=== PATIENT | male | born 1955 | race African-American/Black ===

== ENCOUNTER 2016-11-14 06:18 | Emergency (ER) | payer OTHER ==
[~2016-11-14] VITALS: Ht 172.7 cm; Wt 104.3 kg
[~2016-11-14 06:18] MED LIST: ACID REDUCER20 MG PO; ALDACTONE25 MG PO; AMITRIPTYLINE H25 M2 PO; AMLODIPINE BESY10 MG PO; ASPIR 8181 MG PO; ASPIRIN EC81 M1 PO; ATORVASTATIN CA20 MG PO; BACTRIM DS TAB1 EACH PO; BENADRYL25 MG PO; BISAC-EVAC10 MG PO; BISACODYL SUPP10 MG RE; CARDURA4 MG PO; CARVEDILOL25 MG PO; CARVEDILOL6.25 MG PO; CHLORTHALIDONE25 MG PO; CIALIS5 MG PO; CIPROFLOXACIN500 M1 PO; CLOPIDOGREL75 MG PO; CLOTRIMAZOLE-BE15 GM TP; COZAAR 50 MG TA50 M2 PO; COZAAR100 MG PO; DOXYCYCLINE 10100 M1 PO; DOXYCYCLINE 10100 MG PO; FEOSOL325 MG PO; FISH OIL 1,0001 EAC5 PO; FLAGYL500 MG PO; FOLIC ACID1 MG PO; HUMALOG100 UNIT/1 SUBQ; HYDRALAZINE 5050 M1 PO; HYDRALAZINE 5050 MG PO; HYDROCHLOROTHIA25 M1 PO; IRON325; KETOROLAC30 MG/1 M5; LANTUS SUBQ; LANTUS100 UNIT/M SUBQ; LEVEMIR SUBQ; LEVEMIR100 UNIT/1 SUBQ; LIPITOR40 MG PO; LISINOPRIL20 MG PO; LISINOPRIL40 MG PO; LOPRESSOR50 PO; LOVASTATIN 20 M20 MG PO; MIRALAX17 GM PO; MOBIC15 MG PO; NEURONTIN 300300 M1 PO; NORCO 5-325 TA1 EACH PO; NORVASC10 MG PO; NOVOLOG100 UNIT/1; NOVOLOG100 UNIT/1 SQ; ONDANSETRON HCL4 M2 PO; PAIN & FEVER325 MG PO; PERCOCET PO; PLAVIX 75 MG TA75 M1 PO; POTASSIUM20 PO; PREDNISONE 20 M20 MG PO; SENNA S TABLET1 EACH PO; TRIAMCINOLONE A15 G1 TOP; TRIANEX17 GM TP; TYLENOL EX-STR500 M1 PO; ZANTAC 150MG T150 M1 PO; ZESTORETIC 20-1 EAC3 PO; ZOFRAN ODT4 MG PO; [UNRECOGNIZED DRUG - OTHER] PO
[2016-11-14 06:57] LABS: ABSOLUTE NEUTROPHILS 5.8 thou/uL (1.4-8.2); BASOPHILS 0.9 % (0.0-2.0); EOSINOPHILS 5.2 % (0.0-3.0); HEMATOCRIT 33.2 % (42.0-52.0); HEMOGLOBIN 10.9 gm/dL (14.0-18.0); LYMPHOCYTES 26.7 % (24.0-44.0); MCH 28.2 pg (26.0-34.0); MCHC 32.7 g/dL (28.0-37.0); MCV 86.1 fL (80.0-100.0); MONOCYTES 10.1 % (1.0-8.0); PLATELET COUNT 213 thou/uL (150-400); POLYS 57.1 % (36.0-66.0); RBC 3.86 mil/uL (4.50-6.00); RDW 14.8 % (10.5-14.5); WBC 10.2 thou/uL (4.0-11.0)
[2016-11-14 07:02] LABS: MANUAL DIFF NO
[2016-11-14] MEDS ORDERED: NORCO 5-325 TA1 EACH PO (07:32)
[2016-11-14] MEDS ORDERED: BACTRIM DS TAB1 EACH PO (07:32)
[2016-11-14 08:06] LABS: CALCIUM 8.4 mg/dL (8.5-10.1); CREATININE 2.8 mg/dL (0.7-1.3); POTASSIUM 5.1 mmol/L (3.5-5.1)
[2016-11-14 09:03] VITALS: BP 1180/92
== END 2016-11-14 09:04 | disposition home or self-care (01) ==
LOC: ER 06:18
PROVIDERS: Emergency Medicine
DX: S68.623A Partial traumatic transphalangeal amputation of left middle finger, initial encounter (principal); S68.625A Partial traumatic transphalangeal amputation of left ring finger, initial encounter; Z86.73 Personal history of transient ischemic attack (TIA), and cerebral infarction without residual deficits; E11.22 Type 2 diabetes mellitus with diabetic chronic kidney disease; I13.10 Hypertensive heart and chronic kidney disease without heart failure, with stage 1 through stage 4 chronic kidney disease, or unspecified chronic kidney disease; N18.9 Chronic kidney disease, unspecified; E78.5 Hyperlipidemia, unspecified; K21.9 Gastro-esophageal reflux disease without esophagitis; W23.0XXA Caught, crushed, jammed, or pinched between moving objects, initial encounter; Y93.89 Activity, other specified; Y92.59 Other trade areas as the place of occurrence of the external cause; Y99.0 Civilian activity done for income or pay

== ENCOUNTER 2017-09-28 10:43 | Emergency (ER) | payer OTHER ==
[~2017-09-28] VITALS: Ht 172.7 cm; Wt 104.3 kg
[2017-09-28] MEDS ORDERED: SENNA8.6 MG PO (12:24)
[2017-09-28] MEDS ORDERED: HYDROCODONE-AP1 EAC6 PO (12:24)
[2017-09-28 12:41] VITALS: BP 137/86
[2018-01-12] MEDS ORDERED: LISINOPRIL10 MG (17:27)
[2018-03-27] MEDS ORDERED: COLCHICINE0.6 M1 PO (09:04)
[2018-03-27] MEDS ORDERED: CEFUROXIME500 MG PO (09:04)
[2018-04-13] MEDS ORDERED: NORCO 5-325 TA1 EACH PO (01:43)
== END 2017-09-28 12:39 | disposition home or self-care (01) ==
LOC: ER 10:43
DX: M25.562 Pain in left knee (principal); M25.462 Effusion, left knee; I25.10 Atherosclerotic heart disease of native coronary artery without angina pectoris; E11.22 Type 2 diabetes mellitus with diabetic chronic kidney disease; I12.9 Hypertensive chronic kidney disease with stage 1 through stage 4 chronic kidney disease, or unspecified chronic kidney disease; N18.9 Chronic kidney disease, unspecified; K21.9 Gastro-esophageal reflux disease without esophagitis; E78.5 Hyperlipidemia, unspecified; Z79.4 Long term (current) use of insulin; W01.0XXA Fall on same level from slipping, tripping and stumbling without subsequent striking against object, initial encounter; Y93.89 Activity, other specified; Y92.89 Other specified places as the place of occurrence of the external cause; Y99.8 Other external cause status

== ENCOUNTER 2018-01-09 18:58 | Emergency (ER) | payer OTHER ==
[~2018-01-09] VITALS: Ht 172.7 cm; Wt 104.3 kg
[~2018-01-09 18:58] MED LIST changes: +HYDROCODONE-AP1 EAC6 PO; +SENNA8.6 MG PO
[2018-01-09 19:47] LABS: HEMATOCRIT 32.5 % (42.0-52.0); HEMOGLOBIN 10.5 gm/dL (14.0-18.0); MCH 28.2 pg (26.0-34.0); MCHC 32.3 g/dL (28.0-37.0); MCV 87.3 fL (80.0-100.0); RBC 3.72 mil/uL (4.50-6.00); RDW 15.5 % (10.5-14.5); WBC 11.2 thou/uL (4.0-11.0)
[2018-01-09 19:48] LABS: CALCIUM 8.2 mg/dL (8.5-10.1); CREATININE 3.2 mg/dL (0.7-1.3); POTASSIUM 4.8 mmol/L (3.5-5.1)
[2018-01-09 19:51] LABS: URIC ACID* 9.7 mg/dL (2.6-7.2)
[2018-01-09] MEDS ORDERED: COLCRYS0.6 MG PO (20:37)
[2018-01-09] MEDS ORDERED: NORCO 10-325 T1 EACH PO (20:37)
[2018-01-09 20:50] VITALS: BP 157/87
[2018-01-12] MEDS ORDERED: LISINOPRIL10 MG (17:27)
== END 2018-01-09 20:51 | disposition home or self-care (01) ==
LOC: ER 18:58
PROVIDERS: Physician Assistant
DX: M10.9 Gout, unspecified (principal); M25.532 Pain in left wrist; I12.9 Hypertensive chronic kidney disease with stage 1 through stage 4 chronic kidney disease, or unspecified chronic kidney disease; E11.22 Type 2 diabetes mellitus with diabetic chronic kidney disease; N18.9 Chronic kidney disease, unspecified; E78.5 Hyperlipidemia, unspecified; K21.9 Gastro-esophageal reflux disease without esophagitis; I25.10 Atherosclerotic heart disease of native coronary artery without angina pectoris; Z86.73 Personal history of transient ischemic attack (TIA), and cerebral infarction without residual deficits

== ENCOUNTER 2018-01-16 03:38 | Emergency (ER) | payer OTHER ==
[~2018-01-16] VITALS: Ht 172.7 cm; Wt 104.3 kg
[~2018-01-16 03:38] MED LIST changes: +COLCRYS0.6 MG PO; +LISINOPRIL10 MG; +NORCO 10-325 T1 EACH PO
[2018-01-16 03:47] VITALS: BP 169/84
[2018-01-16] MEDS ORDERED: NORCO 5-325 TA1 EACH PO (05:15)
== END 2018-01-16 05:24 | disposition home or self-care (01) ==
LOC: ER 03:38
DX: Z46.4 Encounter for fitting and adjustment of orthodontic device (principal); M19.90 Unspecified osteoarthritis, unspecified site; M25.532 Pain in left wrist; I12.9 Hypertensive chronic kidney disease with stage 1 through stage 4 chronic kidney disease, or unspecified chronic kidney disease; E11.22 Type 2 diabetes mellitus with diabetic chronic kidney disease; N18.4 Chronic kidney disease, stage 4 (severe); M10.9 Gout, unspecified; I25.10 Atherosclerotic heart disease of native coronary artery without angina pectoris; E78.5 Hyperlipidemia, unspecified; K21.9 Gastro-esophageal reflux disease without esophagitis

== ENCOUNTER → 2018-07-31 | Outpatient (CLI) | payer OTHER ==
[~2018-07-31] MED LIST changes: +CEFUROXIME500 MG PO; +COLCHICINE0.6 M1 PO
--- NOTE | ~2018-07-31 | 2DMMODE ---
[facility] [place] [address] 2 D/M-MODE ECHOCARDIOGRAM Name: SINDY HERRERA Room #: REG [facility]#: [id number] Admission: 07/31/18 Attend Phys: Rayshawn Giraldo MD Discharge: Date of : 59 Date of Service: 07/31/18 0940 Report #: [id number] THIS REPORT FOR: //name// APPROVED REPORT Study performed: 07/31/2018 08:55:12 EXAM: Comprehensive 2D, Doppler, and color-flow Echocardiogram Patient Location: Out-Patient Room #: Echo lab 2 Status: routine BSA: 2.17 HR: 72 bpm BP: 148/82 mmHg Rhythm: NSR Other Information Study Quality: Good Indications Diabetes Hypertension/HDD 2D Dimensions RVDd: 30.31 mm IVSd: 18.48 (7-11mm) LVOT Diam: 19.85 (18-24mm) LVDd: 31.15 mm PWd: 19.75 (7-11mm) Ascending Ao: 29.31 (22-36mm) LVDs: 13.03 (25-40mm) Aortic Root: 30.38 mm IVC: 16.00 mm Volumes Left Atrial Volume (Systole) Single Plane 4CH: 81.08 mL Single Plane 2CH: 64.29 mL LA ESV Index: 37.00 mL/m2 Aortic Valve AoV Peak Jan.: 1.65 m/s AO Peak Gr.: 10.83 mmHg LVOT Max P.98 mmHg LVOT Max V: 1.73 m/s GRACIELA Vmax: 3.25 cm2 Mitral Valve E/A Ratio: 0.6 MV Decel. Time: 360.40 ms [facility] [place] [address] 2 D/M-MODE ECHOCARDIOGRAM Name: SINDY HERRERA Room #: [facility]#: [id number] Admission: 07/31/18 Attend Phys: Rayshawn Giraldo MD Discharge: Date of : 59 Date of Service: 07/31/18 0940 Report #: [id number] Max Jan.: 0.67 m/s MV A Jan.: 1.14 m/s MV PHT: 104.52 ms IVRT: 119.95 ms Pulmonary Valve PV Peak Jan.: 1.17 m/s PV Peak Gr.: 5.47 mmHg Pulmonary Vein P Vein S: 0.51 m/s P Vein A: 0.27 m/s P Vein D: 0.25 m/s P Vein A Dur.: 120.0 msec P Vein S/D Ratio: 2.04 Tricuspid Valve TR Peak Jan.: 2.02 m/s TR Peak Gr.: 16.36 mmHg PA Pressure: 21.00 mmHg Left Ventricle The left ventricle is normal size. There is normal LV segmental wall motion. Moderate to severe concentric left ventricular hypertrophy. Left ventricular systolic function is hyperdynamic. LVEF is >70%. Grade I - abnormal relaxation pattern. Right Ventricle The right ventricle is normal size. The right ventricular systolic function is normal. Atria Left atrium is dilated. The right atrium size is normal. Aortic Valve The aortic valve is normal in structure. Aortic valve is calcified. No aortic regurgitation is present. There is no aortic valvular stenosis. Mitral Valve The mitral valve is normal in structure. Trace mitral regurgitation. No evidence of mitral valve stenosis. Tricuspid Valve The tricuspid valve is normal in structure. There is trace tricuspid regurgitation. Estimated PAP 21 mmHg. There is no pulmonary hypertension. Pulmonic Valve [facility] [address] [place] [address] 2 D/M-MODE ECHOCARDIOGRAM Name: SINDY HERRERA Room #: REG [facility]#: [id number] Admission: 07/31/18 Attend Phys: Rayshawn Giraldo MD Discharge: Date of : 59 Date of Service: 07/31/18 0940 Report #: [id number] The pulmonary valve is normal in structure. There is no pulmonic valvular regurgitation. Great Vessels The aortic root is normal in size. IVC is normal in size and collapses >50% with inspiration. Pericardium There is no pericardial effusion. <Conclusion> The left ventricle is normal size. Moderate to severe concentric left ventricular hypertrophy. Left ventricular systolic function is hyperdynamic. Grade I - abnormal relaxation pattern. The right ventricle is normal size. Left atrium is dilated. Aortic valve is calcified. Trace mitral regurgitation. There is trace tricuspid regurgitation. Estimated PAP 21 mmHg. <ELECTRONICALLY SIGNED> By: Rayshawn Giraldo MD 07/31/18939 9 9 Rayshawn Giraldo MD /INF
== END ==
LOC: CV 07-07 11:17
DX: I51.7 Cardiomegaly (principal); I25.10 Atherosclerotic heart disease of native coronary artery without angina pectoris

== ENCOUNTER → 2018-08-14 | Outpatient (CLI) | payer OTHER | LOC: NUC 08:42 | DX: I25.110 Atherosclerotic heart disease of native coronary artery with unstable angina pectoris (principal); E78.5 Hyperlipidemia, unspecified; I48.91 Unspecified atrial fibrillation; E11.22 Type 2 diabetes mellitus with diabetic chronic kidney disease; I13.10 Hypertensive heart and chronic kidney disease without heart failure, with stage 1 through stage 4 chronic kidney disease, or unspecified chronic kidney disease; N18.4 Chronic kidney disease, stage 4 (severe) ==

== ENCOUNTER 2018-10-28 12:12 | Emergency (ER) | payer OTHER ==
[~2018-10-28] VITALS: Ht 172.7 cm; Wt 104.3 kg
[2018-10-28 12:18] VITALS: BP 206/97
[2018-10-28] MEDS ORDERED: HYDROCODONE-AP1 EAC6 PO (12:44)
== END 2018-10-28 13:20 | disposition home or self-care (01) ==
LOC: ER 12:12
DX: S60.222A Contusion of left hand, initial encounter (principal); G89.29 Other chronic pain; M10.9 Gout, unspecified; I25.10 Atherosclerotic heart disease of native coronary artery without angina pectoris; K21.9 Gastro-esophageal reflux disease without esophagitis; E78.5 Hyperlipidemia, unspecified; I12.9 Hypertensive chronic kidney disease with stage 1 through stage 4 chronic kidney disease, or unspecified chronic kidney disease; E11.22 Type 2 diabetes mellitus with diabetic chronic kidney disease; N18.4 Chronic kidney disease, stage 4 (severe); Z79.4 Long term (current) use of insulin; Z86.73 Personal history of transient ischemic attack (TIA), and cerebral infarction without residual deficits; W07.XXXA Fall from chair, initial encounter; Y93.89 Activity, other specified; Y92.89 Other specified places as the place of occurrence of the external cause; Y99.8 Other external cause status

== ENCOUNTER 2019-01-08 19:20 | Inpatient (IN) | payer OTHER ==
[~2019-01-08] VITALS: Ht 172.7 cm; Wt 94.9 kg
[2019-01-08 19:21] VITALS: BP 151/71
[2019-01-08 20:30] LABS: HEMATOCRIT 33.3 % (42.0-52.0); MCH 28.3 pg (26.0-34.0); MCHC 32.9 g/dL (28.0-37.0); MCV 86.1 fL (80.0-100.0); RBC 3.87 mil/uL (4.50-6.00); RDW 17.4 % (10.5-14.5); WBC 7.6 thou/uL (4.0-11.0)
[2019-01-08 20:36] LABS: ANION GAP 13 mmol/L (7-16); BUN 70 mg/dL (7-18); CALCIUM 8.9 mg/dL (8.5-10.1); CHLORIDE 110 mmol/L (98-107); CO2 17 mmol/L (21-32); GLUCOSE 144 mg/dL (74-106); POTASSIUM 4.9 mmol/L (3.5-5.1); SODIUM 140 mmol/L (136-145)
[2019-01-08 20:44] LABS: APTT 28.2 Seconds (24.5-32.8); PROTIME 10.4 Seconds (9.3-11.4); TROPONIN-I <0.06 ng/mL (<0.06)
[2019-01-09] VITALS (8 sets, daily range): BP systolic 130–152; BP diastolic 61–91
[2019-01-09 02:42] LABS: CHOLESTEROL 115 mg/dL (<200); HDL CHOLESTEROL 27 mg/dL (>40); LDL CHOLESTEROL 66 mg/dL (<100); TC:HDL 4.3 Ratio (Not establshd); TRIGLYCERIDE 113 mg/dL (<150); VLDL 23 mg/dL (<40)
[2019-01-09 02:57] LABS: SERUM ASSESSMENT Clear
--- NOTE | 2019-01-09 07:29 | NUR ---
Arrived from ER after 0400. NIH still at 2 and no change in neuro status. Left side facial and hand discomfort/pain he described as sharp and constant that has been going on for a week. Bed alarm on for safety , pt. is impulsive. SCD's for DVT prophylaxis. Neuro consult called by pain medicine physician. Will continue to monitor.
--- NOTE | 2019-01-09 09:32 | EKG ---
[place] [address] 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1955 Requested By: Miles Hardy Order Number: [id number] MD: Panchito Sandhu Measurements Intervals [place] Rate: 64 P: 49 IN: 202 QRS: 25 QRSD: 99 T: 60 QT: 452 QTc: 467 Interpretive Statements Sinus rhythm Probable anteroseptal infarct, age indeterminate Compared to ECG 03/24/2018 20:32:23 No significant changes Electronically Signed On 01-09-2019 9:32:31 CDT by Panchito Sandhu [email or web address] ��������������������������������������������� <ELECTRONICALLY SIGNED> ���������������������������������������� By: Panchito Sandhu MD, [facility] ��������������������������������������������� 01/09/19 0932 50 50 Panchito Sandhu MD, [facility] /EPI
--- NOTE | 2019-01-09 10:33 | NUR ---
ASSESSMENT: CM REVIEWED CHART AND MET WITH PATIENT AT THE BEDSIDE. PT WAS ADMITTED DUE TO LEFT FACIAL NUMBNESS. PT REPORTS THAT HE LIVES AT HOME WITH HIS AND DAUGHTER IN A HOUSE. PT REPORTS ABOUT 7 STEPS WITH HANDRAILS TO GET INTO THE HOME AND NO STEPS HE HAS TO USE ONCE INSIDE. PT REPORTS HE AMBULATES WITH A CANE. PT REPORTS HE HAS A GRAB BAR AT HOME IN THE SHOWER. CM DISCUSSED ROLE. PT STATES HE HAS NOT HAD HH IN THE PAST NOR BEEN TO A SNF/ACUTE REHAB. PT REPORTS HE HAS NO ISSUES WITH HIS GAIT AT THIS TIME. PT DOES NOT ANTICIPATE HAVING ANY NEEDS AT DISCHARGE.
--- NOTE | 2019-01-09 19:44 | NUR ---
ASSUMED PATIENT CARE AT 0700. A/O X4. LEFT HAND AND LEFT FACE NUMBNESS. WORKING WITH STEADY GAIT, PROGRESSING TOWARDS POC GOALS.
[2019-01-10 03:30] VITALS: BP 145/71
--- NOTE | 2019-01-10 05:23 | NUR ---
Pain med given for left facial/hand pain with some relief. Pt. stated he slept well during the night. Up with min assist using walker and gait belt. Bed alarm on for safety. No neuro change from previous assessment. Making progress towards care plan goals.
[2019-01-10 06:25] LABS: ALBUMIN 3.2 g/dL (3.4-5.0); CREATININE 3.9 mg/dL (0.7-1.3); PHOSPHORUS 3.9 mg/dL (2.5-4.9); POTASSIUM 4.4 mmol/L (3.5-5.1)
[2019-01-10 07:06] VITALS: BP 130/65
[2019-01-10] MEDS ORDERED: ASPIR 8181 MG PO (09:28)
[2019-01-10] MEDS ORDERED: LASIX 40 MG TAB40 M2 PO (09:29)
[2019-01-10 09:50] VITALS: BP 130/65
[2019-01-10 10:42] VITALS: BP 130/65
--- NOTE | 2019-01-10 11:01 | NUR ---
PT CONTINUES TO REPORT PAIN TO LT HAND AND LT SIDE OF FACE 11/19..NO RELIEF OBTAINED WITH MEDS..
[2019-01-10 11:03] VITALS: BP 130/65
--- NOTE | 2019-01-10 16:31 | HC ---
[facility] [place] [address] CONSULTATION Name: SINDY HERRERA Room #: 349-I [facility]..#: [id number] Admission: 01/08/19 ������������������ Attend Phys: Kinza Rucker Discharge: 01/10/19 ������������������ Date of : 59 Report #: [id number] THIS REPORT FOR: //name// CC: Stan Rucker DATE OF SERVICE: 01/09/2019 NEUROLOGY CONSULTATION HISTORY OF PRESENT ILLNESS: The patient is a 63-year-old male who presents with an episode of what he describes as left facial numbness and weakness. The patient has a prior history of stroke in 2013. The patient is on aspirin 81 mg daily. He does have a history of diabetes and states that his blood sugar is typically well controlled. On admission, the patient had a blood sugar of 226. The patient also had some type of injury to the left hand, a garage door came down on the hand and ever since then, it has never functioned properly. He denies any symptoms in his legs. PAST MEDICAL HISTORY: Arthritis, congestive heart failure, diabetes, gout, stroke and hyperlipidemia. PAST SURGICAL HISTORY: Unremarkable. MEDICATIONS AT HOME: Hydrocodone p.r.n., Coreg 6.25 mg b.i.d., amlodipine 10 mg daily, colchicine 0.6 mg b.i.d., atorvastatin 80 mg at bedtime, gabapentin 600 mg t.i.d., NovoLog insulin, Levemir insulin. ALLERGIES: None. PHYSICAL EXAMINATION: VITAL SIGNS: Temperature 37.5, pulse rate 87, respiratory rate 20, blood pressure 147/64, bedside pulse oximetry 98% on room air. NEUROLOGIC: Cranial nerves 2-12 are grossly intact. The patient when he tried to smile, lifted only the left side of his face and not the right, although he told me that he felt as though the left side of his face was weak. Motor exam demonstrates symmetrical strength in all 4 extremities with the exception of the left hand. The patient had difficulty with fine finger movements, which he states is from an old injury. Reflexes are absent. Plantar responses are flexor bilaterally. Coordination demonstrates no evidence of dysmetria. Gait was not tested. LABORATORY DATA: Hematology: White blood cell count 7.6, hemoglobin 11, hematocrit 33.3, MCV 86.1 and platelet count 255,000. INR 1. Chemistry: Sodium 140, potassium 3.9, chloride 110, carbon dioxide 24, BUN 70, creatinine 4, GFR 19, glucose 144. [address] [address] CONSULTATION Name: SINDY HERRERA Room #: 349-I [facility]#: [id number] Admission: 01/08/19 ������������������ Attend Phys: Kinza Rucker Discharge: 01/10/19 ������������������ Date of : 59 Report #: [id number] IMAGING STUDIES: MRI of the head shows no acute intracranial abnormality, a left frontal lobe stroke is seen along with an old stroke in the left cerebellum. There is no change in the MRI since 2017. IMPRESSION: There is no evidence of stroke on MRI. Secondly, on examination, the symptoms are inconsistent. He states that he has left facial weakness, but actually when he smiles, the left side of the face moves and the right did not. At this point, the patient should be careful with his blood sugar. He is also developing kidney disease and I do not know if he is aware of this or not, but he should follow up with his primary care physician about this. Perhaps, he will need to see a jacquard plate maker as an outpatient. I encouraged him to continue aspirin 81 mg daily. I have no further recommendations. I thank you for your referral of the patient. ��������������������������������������������� <ELECTRONICALLY SIGNED> ���������������������������������������� By: Melissa Holcomb DO ��������������������������������������������� 01/10/19 1631 1205 1052 Melissa Holcomb DO /nt
== END 2019-01-10 11:00 | disposition home or self-care (01) | DRG 74 ==
LOC: ER 19:20 → EROBS 22:07 → 3W 22:07
PROVIDERS: Emergency Medicine; Nurse Practitioner Acute Care; ADMIT Hospitalist
DX: G58.8 Other specified mononeuropathies (principal); I13.0 Hypertensive heart and chronic kidney disease with heart failure and stage 1 through stage 4 chronic kidney disease, or unspecified chronic kidney disease; N18.4 Chronic kidney disease, stage 4 (severe); I69.354 Hemiplegia and hemiparesis following cerebral infarction affecting left non-dominant side; R20.0 Anesthesia of skin; I25.10 Atherosclerotic heart disease of native coronary artery without angina pectoris; E78.5 Hyperlipidemia, unspecified; M19.90 Unspecified osteoarthritis, unspecified site; I50.9 Heart failure, unspecified; K21.9 Gastro-esophageal reflux disease without esophagitis; M10.9 Gout, unspecified; E11.22 Type 2 diabetes mellitus with diabetic chronic kidney disease; Z79.84 Long term (current) use of oral hypoglycemic drugs; Z79.82 Long term (current) use of aspirin
CPT/HCPCS: 10879

== ENCOUNTER 2019-05-28 12:21 | Emergency (ER) | payer OTHER ==
[~2019-05-28] VITALS: Ht 180.3 cm; Wt 93.0 kg
[~2019-05-28 12:21] MED LIST changes: +LASIX 40 MG TAB40 M2 PO
[2019-05-28 13:54] LABS: ANION GAP 12 mmol/L (7-16); BUN 66 mg/dL (7-18); CALCIUM 8.9 mg/dL (8.5-10.1); CHLORIDE 110 mmol/L (98-107); CO2 20 mmol/L (21-32); CREATININE 3.8 mg/dL (0.7-1.3); GLUCOSE 103 mg/dL (74-106); POTASSIUM 4.5 mmol/L (3.5-5.1); SODIUM 142 mmol/L (136-145)
[2019-05-28 14:00] LABS: ALBUMIN 3.5 g/dL (3.4-5.0); DIRECT BILIRUBIN < 0.1 mg/dL (<0.1-0.3); SGOT 16 U/L (15-37); SGPT 20 U/L (30-65); TOTAL BILIRUBIN 0.3 mg/dL (<0.1-1.0); TOTAL PROTEIN 7.3 g/dL (6.4-8.2)
[2019-05-28 14:02] LABS: URINE BILIRUBIN NEGATIVE (Negative); URINE BLOOD NEGATIVE (Negative); URINE CLARITY CLEAR; URINE COLOR YELLOW; URINE GLUCOSE-RANDOM* NEGATIVE (Negative); URINE KETONES NEGATIVE (Negative); URINE LEUKOCYTES-REFLEX NEGATIVE (Negative); URINE NITRITE-REFLEX NEGATIVE (Negative); URINE PROTEIN (DIPSTICK) 1+ (Negative); URINE UROBILINOGEN 0.2 E.U./dl (0.2-1.0)
[2019-05-28 14:11] LABS: BACTERIA-REFLEX 1-9 Few /HPF (None Seen); CASTS None Seen /LPF (None Seen); CRYSTALS None Seen /LPF (None Seen); SQUAMOUS 0-3 Few /LPF (0-3); URINE RBC None Seen /HPF (0-2); URINE WBC-REFLEX None Seen /HPF (0-5)
[2019-05-28 16:56] VITALS: BP 166/75
== END 2019-05-28 16:57 | disposition home or self-care (01) ==
LOC: ER 12:21
PROVIDERS: Emergency Medicine
DX: E11.649 Type 2 diabetes mellitus with hypoglycemia without coma (principal); I13.0 Hypertensive heart and chronic kidney disease with heart failure and stage 1 through stage 4 chronic kidney disease, or unspecified chronic kidney disease; I50.9 Heart failure, unspecified; N18.4 Chronic kidney disease, stage 4 (severe); E11.22 Type 2 diabetes mellitus with diabetic chronic kidney disease; K21.9 Gastro-esophageal reflux disease without esophagitis; M19.90 Unspecified osteoarthritis, unspecified site; E78.5 Hyperlipidemia, unspecified; I25.10 Atherosclerotic heart disease of native coronary artery without angina pectoris; Z86.73 Personal history of transient ischemic attack (TIA), and cerebral infarction without residual deficits

== ENCOUNTER 2019-06-21 20:07 | Inpatient (IN) | payer OTHER ==
[~2019-06-21] VITALS: Ht 160 cm; Wt 104.9 kg
[2019-06-21 20:43] LABS: ABSOLUTE NEUTROPHILS 7.2 thou/uL (1.4-8.2); BASOPHILS 0.7 % (0.0-2.0); EOSINOPHILS 6.4 % (0.0-3.0); HEMATOCRIT 35.3 % (42.0-52.0); HEMOGLOBIN 11.4 gm/dL (14.0-18.0); LYMPHOCYTES 14.7 % (24.0-44.0); MCH 29.2 pg (26.0-34.0); MCHC 32.1 g/dL (28.0-37.0); MONOCYTES 8.3 % (1.0-8.0); PLATELET COUNT 222 thou/uL (150-400); POLYS 69.9 % (36.0-66.0); RBC 3.88 mil/uL (4.50-6.00); RDW 14.8 % (10.5-14.5); WBC 10.3 thou/uL (4.0-11.0)
[2019-06-21 21:01] LABS: ANION GAP 12 mmol/L (7-16); BUN 60 mg/dL (7-18); CALCIUM 9.1 mg/dL (8.5-10.1); CHLORIDE 109 mmol/L (98-107); CO2 21 mmol/L (21-32); CREATININE 3.4 mg/dL (0.7-1.3); GLUCOSE 63 mg/dL (74-106); POTASSIUM 5.2 mmol/L (3.5-5.1); SODIUM 142 mmol/L (136-145)
[2019-06-21 21:06] LABS: APTT 26.6 Seconds (24.5-32.8); PROTIME 10.5 Seconds (9.3-11.4)
[2019-06-21 21:12] LABS: ALBUMIN 3.6 g/dL (3.4-5.0); SGOT 16 U/L (15-37); SGPT 18 U/L (30-65); TOTAL BILIRUBIN 0.4 mg/dL (<0.1-1.0); TOTAL PROTEIN 7.8 g/dL (6.4-8.2); TROPONIN-I <0.06 ng/mL (<0.06)
[2019-06-21 23:41] VITALS: BP 176/81
[2019-06-22 00:05] VITALS: BP 185/94
--- NOTE | 2019-06-22 02:46 | NUR ---
Patient arrived to 3W and was oriented to the unit. Admisison process completed. Nursing is working on patient's goals reviewed plan of care/ floor policies with patient. Patient is currently sleeping. Bedrails padded for seizure precautions. No current seiuzure activity detected. Nursing will continue to monitor.
[2019-06-22 04:10] VITALS: BP 162/94
[2019-06-22 05:13] LABS: CALCIUM 8.5 mg/dL (8.5-10.1); CREATININE 3.4 mg/dL (0.7-1.3); POTASSIUM 5.2 mmol/L (3.5-5.1)
[2019-06-22 07:47] VITALS: BP 187/81
[2019-06-22 12:26] VITALS: BP 147/67
[2019-06-22 16:35] VITALS: BP 130/57
--- NOTE | 2019-06-22 17:00 | NUR ---
PT is A&OX3, pt's vs and bs are stable today, pt can gte up to bathroom with some help, pt has done EEG and BLAYNE head, pt denies pain and sob at this time.
[2019-06-22 19:31] VITALS: BP 135/58
[2019-06-23] VITALS (7 sets, daily range): BP systolic 114–154; BP diastolic 58–69
[2019-06-23 00:05] LABS: GLYCOHEMOGLOBIN (HGB A1C) 6.9 % (4.8-5.6)
[2019-06-23 05:30] LABS: CALCIUM 8.7 mg/dL (8.5-10.1); CREATININE 3.1 mg/dL (0.7-1.3)
--- NOTE | 2019-06-23 06:25 | NUR ---
PATIENT IS ALERT AND ORENTED. PAITENT IS UP TIMES ONE. PATIENT HAS LEFT SIDED WEAKNESS FORM OLD CVA. PATIENT IS FIRST DEGREE AVB ON TELE. PATIENT IS ROOMAIR. PATIENT BLOOD GLUCOSE HAVE BEEN STABLEY. NO SEIZURE ACTIVITY. PATIENT SHOWERED. PATIENT IS RESITNG COMFORTABLY IN BED.[facility].
--- NOTE | 2019-06-23 08:10 | HC ---
[facility] [place] [address] CONSULTATION Name: SINDY HERRERA Room #: 352-P [facility] IN ..#: [id number] Admission: 06/21/19 Attend Phys: David Whitman MD Discharge: Date of : 59 Report #: [id number] THIS REPORT FOR: //name// CC: David Ingram DATE OF SERVICE: 06/22/2019 ENDOCRINE CONSULTATION NOTE CONSULTING PHYSICIAN: Dr. Leary. REASON FOR CONSULTATION: Uncontrolled type 2 diabetes mellitus. HISTORY OF PRESENT ILLNESS: This is a 64-year-old male patient whose medical background is significant for multiple medical issues including a long history of type 2 diabetes mellitus, CAD, advanced chronic kidney disease, hypertension and hyperlipidemia. The patient presented yesterday to the ER with a witnessed seizure episode that occurred in the context of severe hypoglycemia. It is reported that the patient was found by EMS unresponsive and was found to have a blood glucose of 20, which was immediately addressed with D10. On arrival to the ER, the patient's blood glucose values just over a 50 mg/dL. On further questioning, the patient indicates that he has had type 2 diabetes mellitus for over 15 years and that he is maintained on a basal bolus regimen of insulin including Levemir insulin taken as 40 units q.p.m. in addition to NovoLog insulin taken at 20 units t.i.d. a.c. The patient notes that for the most part, he manages to control his blood glucose values rather well and maintains these in the low to mid 100 mg/dL range. He notes that hypoglycemia occurs occasionally, but rarely to where it is severe in the way that he presented with. He does not recall that any previous hypoglycemic episodes have caused him to present to the Emergency Department or be hospitalized and describes these as rather infrequent. He does not believe that diabetes mellitus has been associated with significant eye disease, but he does report issues with advanced chronic kidney disease for which he follows with Dr. Taylor. The patient has had a CVA in the past that left him with left-sided weakness and numbness. He reports intermittent issues with neuropathy, but attributes that to the CVA, more so than diabetes mellitus. He is not aware of history of heart disease. The patient has hyperlipidemia for which he takes atorvastatin 80 mg daily. He also has hypertension for which he is maintained on carvedilol and amlodipine. REVIEW OF SYSTEMS: CONSTITUTIONAL: Fatigue, tiredness, but no fever, chills or significant changes [facility] [address] [place] [address] CONSULTATION Name: SNIDY HERRERA Room #: 352-P [facility] IN [facility].#: [id number] Admission: 06/21/19 Attend Phys: David Whitman MD Discharge: Date of : 59 Report #: [id number] in body weight. HEENT: Negative for sore throat, sinus pain, ear drainage. PULMONARY: Occasional shortness of breath, occasional cough, but not hemoptysis. CARDIAC: Occasional palpitations, no chest pain, leg swelling is noted occasionally. GASTROINTESTINAL: Abdominal distention, nausea, but no vomiting, no major changes in bowel movement frequency recently. NEUROLOGY: Left-sided weakness and numbness. No loss of consciousness reported, seizure activity as noted above upon presentation. MUSCULOSKELETAL: Sporadic issues with arthralgia and myalgia. SKIN: No ulceration, rash, or major abnormalities. PSYCHIATRIC: Negative for delusions, hallucinations or other major issues. Otherwise, review of systems noncontributory unless mentioned in HPI. PAST MEDICAL HISTORY: 1. Type 2 diabetes mellitus. 2. Stage 4 chronic kidney disease. 3. Cerebrovascular accident, status post left-sided weakness. 4. Gout. 5. Hypertension. 6. Hyperlipidemia. 7. CAD. 8. GERD. 9. Osteoarthritis. 10. CHF. 11. Chronic pain. 12. Peripheral diabetic neuropathy. OUTPATIENT MEDICATIONS: Include Levemir insulin 40 units q.p.m., NovoLog insulin 20 units t.i.d. a.c., atorvastatin 80 mg at bedtime, gabapentin 300 mg t.i.d., carvedilol 6.25 mg b.i.d., amlodipine 10 mg daily, aspirin 81 mg daily, colchicine 0.6 mg b.i.d. ALLERGIES: No known drug allergies. FAMILY HISTORY: Noncontributory. SOCIAL HISTORY: The patient is , has 2 children. Denies use of tobacco, alcohol or illicit drugs. PHYSICAL EXAMINATION: GENERAL: This is a pleasant -[place] male patient who seems comfortable at the time of my interview and not in pain or distress. VITAL SIGNS: Blood pressure is 187/81 mmHg, respirations 20 per minute, temperature of 36.4 Celsius, heart rate 67 beats per minute. [address] [address] CONSULTATION Name: SINDY HERRERA Room #: 352-P [facility] IN M.R.#: [id number] Admission: 06/21/19 Attend Phys: David Whitman MD Discharge: Date of : 59 Report #: [id number] CONSTITUTIONAL: The patient is lying in bed, appears comfortable, not in apparent distress. HEENT: Anicteric sclerae. Intact extraocular motions. NECK: Supple, without JVD, carotid bruits or lymphadenopathy. I do not appreciate thyromegaly. CHEST: Noted for moderate air entry bilaterally with scattered rales, rhonchi, but no crackles or wheezes. HEART: Regular rate and rhythm without murmurs or gallops. ABDOMEN: Soft and lax without tenderness or organomegaly. No guarding. Active bowel sounds. EXTREMITIES: Lower extremity exam is noted for trace ankle edema bilaterally. No skin breaks, ulcerations or other deformities. PSYCH: Normal mood and affect. NEUROLOGIC: Left-sided motor and sensory deficits are noted. Power is 3/5 in the left hand. LABORATORY DATA: Blood glucose on arrival was 58 mg/dL and has since it is in between 126 and 211 mg/dL. Otherwise, sodium 138, potassium 5.2, chloride 107, CO2 of 21, anion gap 10, BUN 57, creatinine 3.4, amylase 35, AST 16, lipase 79. Total bilirubin 0.4, calcium 8.5, phosphorus 3.9, magnesium 1.6, uric acid 11, alkaline phosphatase 133, ALT 18, total protein 7.8, albumin 3.6, GFR 22. Total CPK 229. Hemoglobin A1c done in 2017 was 8.1. ASSESSMENT AND PLAN: 1. Type 2 diabetes mellitus. The patient reports an adequate level of control at home and speaks the blood glucose values were mostly within normal limits. However, his presentation was noted for a rather dramatic, severe hypoglycemia resulting in seizure-like activity. The patient and I discussed this at length and he seemed to understand the danger of such a situation. Going forward, I believe that the patient would still rely on a basal bolus insulin regimen, especially in the presence of advanced kidney disease with oral options are rather limited. However, this would be resumed rather defensively with the main intent of avoiding hypoglycemia. That said, I will place the patient on Lantus 20 units q.p.m. in addition to meal coverage with 7 units of Humalog in addition to Humalog supplemental scale of moderate intensity to utilize as needed. Blood glucose monitoring will commence a.c. and at bedtime and further adjustments will be made according to these values. Also, I would like to obtain a hemoglobin A1c to better assess his overall level of control. 2. Hypoglycemia. As noted above, the patient presented with severe hypoglycemia, resulting in neuroglycopenic symptoms. This would prompt defensive insulin changes and should also until maintaining a conservative mindset going forward when it comes to that. 3. Hyperlipidemia. The patient has hyperlipidemia, which certainly warrants a tight control, especially with a background of cerebrovascular accident, he is to continue the current regimen of atorvastatin. 4. Hypertension. The patient is maintained on a regimen [place] [address] CONSULTATION Name: SINDY HERRERA Room #: 352-P [facility] IN [facility].#: [id number] Admission: 06/21/19 Attend Phys: David Whitman MD Discharge: Date of : 59 Report #: [id number] Norvasc. His blood pressure control is marginal at the time being, I will defer this aspect of care to the Hospital Medicine team. I reviewed the patient's clinical care reports, laboratory data, and other pertinent clinical information from his electronic medical record for over 35 minutes. I certainly appreciate this consultation by Dr. Leary. <ELECTRONICALLY SIGNED> By: Luis Miguel Weller MD 06/23/19 0810 1125 0056 Luis Miguel Weller MD /nt
--- NOTE | 2019-06-23 10:15 | NUR ---
ASSESSMENT: CM REVIEWED CHART AND MET WITH PATIENT AT THE BEDSIDE. PT WAS ADMITTED WITH POSSIBLE SEIZURE. PT REPORTS HE LIVES IN A HOUSE WITH HIS . PT REPORTS ABOUT 10 STEPS WITH A HANDRAIL TO GET INSIDE AND ONCE INSIDE HE DOES NOT HAVE TO USE ANY MORE STEPS. PT REPORTS HE AMBULATES INDEPENDENTLY MAJORITY OF THE TIME BUT ALSO HAS A CANE WHEN NEEDED. PT REPORTS BEING INDEPENDENT WITH ADLS. PT STATES HE HAS HAD [facility] IN THE PAST BUT NOT RECENTLY. PT REPORTS HE DOES NOT FEEL HE NEEDS HH AT THIS TIME. PT ANTICIPATES DISCHARGING HOME WITH NO NEEDS. CM WILL CONTINUE TO FOLLOW TO ASSIST NEEDED.
--- NOTE | 2019-06-23 16:00 | NUR ---
GA WAS ADMITTED FOR HYPOGLYCEMIA, HX OF SEIZURES, AND LUIS PARALYSIS. HE WAS PUT ON SEIZURE PERCAUTIONS, TYPE 2 DM.BLOOD SUGARS CONTROLLED THROUGHOUT THE DAY. VITAL SIGNS NORMAL. PATIENT WAS ACCOMPANIED BY HIS FOR BREAKFAST AND LUNCH. WAS UP TO THE CHAIR IN AFTER LUNCH. PT COMPLAINED OF FEELING "LOW" AROUND 1515, FSBS WAS 154. PT REQUESTED CRACKERS AND A BRITTANIE. PT WAS QUIET, CALM AND RESTED THE MOST OF THE DAY
--- NOTE | 2019-06-23 16:32 | NUR ---
pt's assessment has done, pt is A&OX3, PT has PT/OT to work with him, pt 's vs and bs are stable, pt gets up to chair now, pt denies pain and sob .pt has slowly meeting care plan goals.
--- NOTE | 2019-06-23 19:00 | EKG ---
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 : 1955 Requested By: Miles Hardy Order Number: [id number] MD: Panchito Sandhu Measurements Intervals [place] Rate: 68 P: 49 OH: 219 QRS: 14 QRSD: 94 T: 80 QT: 451 QTc: 480 Interpretive Statements Sinus rhythm Borderline prolonged OH interval Probable anteroseptal infarct, recent Compared to ECG 01/08/2019 20:51:07 No significant changes Electronically Signed On 06-23-2019 19:00:12 ONCOLOGY PHYSICIAN by Panchito Sandhu [email or web address] <ELECTRONICALLY SIGNED> By: Panchito Sandhu MD, [facility] 06/23/19 190 14 14 Panchito Sandhu MD, FAC /EPI
[2019-06-24 00:04] VITALS: BP 142/64
--- NOTE | 2019-06-24 03:23 | NUR ---
PATIENT IS ALERT AND ORIENTED. PATIENT IS SBA. PATIENT HAS SOME ST DREPRESSION AROUND 2300 THAT WAS PRESENT ON EKG ADMITION. PATIENT DID NOT HAVE ANY SYMPTOMS WITH DEPRESSION. VITALS ARE STABLE. PATIENT IS ROOM AIR. PATIENT IS RESTING COMFORTABLY DENIES CHEST PAIN. PATIENT MAY DISCHARGE HOME TODAY. PATIENT IS PROGRESSING TO GOALS. NO SEIZURE ACTIVITY.
[2019-06-24 03:32] VITALS: BP 137/57
[2019-06-24 07:30] VITALS: BP 133/73
[2019-06-24 11:30] VITALS: BP 140/76
--- NOTE | 2019-06-24 14:16 | NUR ---
ON-GOING ASSESSMENT: CM REVIEWED CHART AND MET WITH PATIENT AT THE BEDSIDE. PT IS GOING TO DISCHARGE HOME TODAY. CM DISCUSSED HH WITH PATIENT. PT STATES HE DOES NOT FEEL HE NEEDS HH AND DOES NOT WANT IT. CM NOTIFIED ATTENDING. PLANS ARE FOR PATIENT TO DISCHARGE BACK HOME.
[2019-06-24] MEDS ORDERED: LANTUS SUBQ (14:17)
[2019-06-24] MEDS ORDERED: ASPIRIN EC81 M1 PO (14:19)
[2019-06-24] MEDS ORDERED: LIPITOR40 MG PO (14:20)
[2019-06-24] MEDS ORDERED: ALLOPURINOL 10100 M3 PO (14:32)
[2019-06-24 14:58] VITALS: BP 140/76
[2019-06-24 15:11] VITALS: BP 128/76
--- NOTE | 2019-06-24 15:43 | NUR ---
ASSUMED CARE OF PT AT 0700. PT ALERT AND ORIENTED IN NO ACUTE DISTRESS. VITALS STABLE. BLOOD SUGARS WELL CONTROLLED. UP AD ONESIMO. VOICINJG NO CONCERNS. ANTICIPATE D/C PENDING ORDERS. WILL CONT TO MONITOR.
--- NOTE | 2019-06-26 12:15 | EEG ---
[facility] [place] [address] ELECTROENCEPHALOGRAM Name: HERRERASINDY Room #: 352-P [facility] IN M.R.#: [id number] Admission: 06/21/19 Attend Phys: David Whitman MD Discharge: 06/24/19 Date of : 59 Report #: [id number] THIS REPORT FOR: //name// CC: David Ingram DATE OF SERVICE: 06/22/2019 The patient was evaluated for seizure. EEG was done by placing the electrodes by standard 10-20 system of electrode placement. Both referential and sequential montages were used for recording. Background activity in this patient's EEG is about 9 Hz and 30 microvolt. The patient went to sleep and that was associated with bilateral slowing and vertex sharp waves. Photic stimulation was unremarkable. Throughout the record, no active epileptiform activity was noticed. IMPRESSION: This patient's EEG is within normal limits. It might be mentioned that EEG can be normal in a patient with seizure disorder. <ELECTRONICALLY SIGNED> By: Mazin Solorio MD 06/26/19 1215 [id number] [id number] Mazin Solorio MD /nt
== END 2019-06-24 16:35 | disposition home or self-care (01) | DRG 100 ==
LOC: ER 20:07 → EROBS 22:31 → 3W 22:31
PROVIDERS: Emergency Medicine; Internal Medicine; Nurse Practitioner Family; ADMIT Hospitalist
DX: G40.89 Other seizures (principal); N17.0 Acute kidney failure with tubular necrosis; I13.0 Hypertensive heart and chronic kidney disease with heart failure and stage 1 through stage 4 chronic kidney disease, or unspecified chronic kidney disease; I69.354 Hemiplegia and hemiparesis following cerebral infarction affecting left non-dominant side; N18.4 Chronic kidney disease, stage 4 (severe); E11.649 Type 2 diabetes mellitus with hypoglycemia without coma; E11.22 Type 2 diabetes mellitus with diabetic chronic kidney disease; M10.9 Gout, unspecified; E11.42 Type 2 diabetes mellitus with diabetic polyneuropathy; G89.29 Other chronic pain; I25.10 Atherosclerotic heart disease of native coronary artery without angina pectoris; E78.5 Hyperlipidemia, unspecified; M19.90 Unspecified osteoarthritis, unspecified site; I50.9 Heart failure, unspecified; K21.9 Gastro-esophageal reflux disease without esophagitis; Z79.82 Long term (current) use of aspirin; Z79.84 Long term (current) use of oral hypoglycemic drugs; Z91.14 Patient's other noncompliance with medication regimen
CPT/HCPCS: 10879

== ENCOUNTER 2020-01-16 14:04 | Inpatient (IN) | payer OTHER ==
[~2020-01-16] VITALS: Ht 172.7 cm; Wt 104.3 kg
[~2020-01-16 14:04] MED LIST changes: +ALLOPURINOL 10100 M3 PO; -NOVOLOG100 UNIT/1; +NOVOLOG100 UNIT/1 SUBQ
[2020-01-16 14:07] VITALS: BP 175/91
[2020-01-16 15:30] LABS: HEMATOCRIT 38.5 % (42.0-52.0); HEMOGLOBIN 12.2 gm/dL (14.0-18.0); MCH 29.1 pg (26.0-34.0); MCHC 31.6 g/dL (28.0-37.0); MCV 92.1 fL (80.0-100.0); RBC 4.18 mil/uL (4.50-6.00); RDW 16.6 % (10.5-14.5); WBC 6.7 thou/uL (4.0-11.0)
[2020-01-16 15:55] LABS: ANION GAP 10 mmol/L (7-16); BUN 65 mg/dL (7-18); CALCIUM 8.7 mg/dL (8.5-10.1); CHLORIDE 105 mmol/L (98-107); CO2 20 mmol/L (21-32); CREATININE 4.1 mg/dL (0.7-1.3); GLUCOSE 193 mg/dL (74-106); SODIUM 135 mmol/L (136-145); TROPONIN-I <0.06 ng/mL (<0.06)
[2020-01-16 15:57] LABS: POTASSIUM 6.2 mmol/L (3.5-5.1)
[2020-01-16 17:49] VITALS: BP 143/79
[2020-01-16 18:08] VITALS: BP 170/104
[2020-01-16 21:15] VITALS: BP 142/64
[2020-01-17 00:47] VITALS: BP 147/78
--- NOTE | 2020-01-17 02:55 | NUR ---
ASSUMED PT CARE AROUND 1944. AXOX4. INDEPENDENT WITH ADLs. CALLS APPROPIRATELY FOR HELP. INITIAL WOUND CARE RENDERED TO R 3RD TOE. NO S/S ACUTE DISTRESS NOTED OR REPORTED AT THIS TIME. WILL CONT TO MONITOR FOR ANY CHANGES IN CONDITION.
[2020-01-17 03:48] VITALS: BP 134/65
[2020-01-17 07:38] VITALS: BP 148/72
[2020-01-17 09:00] LABS: ABSOLUTE NEUTROPHILS 4.3 thou/uL (1.4-8.2); BASOPHILS 0.5 % (0.0-2.0); EOSINOPHILS 7.9 % (0.0-3.0); HEMATOCRIT 35.2 % (42.0-52.0); HEMOGLOBIN 11.2 gm/dL (14.0-18.0); MCH 29.3 pg (26.0-34.0); MCHC 31.9 g/dL (28.0-37.0); MCV 91.8 fL (80.0-100.0); MONOCYTES 10.3 % (1.0-8.0); PLATELET COUNT 166 thou/uL (150-400); POLYS 62.3 % (36.0-66.0); RBC 3.83 mil/uL (4.50-6.00); WBC 6.9 thou/uL (4.0-11.0)
[2020-01-17 09:45] LABS: ALBUMIN 3.6 g/dL (3.4-5.0); CALCIUM 8.5 mg/dL (8.5-10.1); CREATININE 3.8 mg/dL (0.7-1.3); PHOSPHORUS 4.7 mg/dL (2.5-4.9); POTASSIUM 5.7 mmol/L (3.5-5.1)
--- NOTE | 2020-01-17 16:12 | NUR ---
Assumed patient care at 0715. Patient has been calm, cooperative and compliant with all medications and treatments. He is alert and oriented x's 4 and is Up Ad Brenda. Vital signs stable, LSCTA, BS x's 4, ABD is soft and non-tender. Right toe is covered with a bandage that is clean, dry and intact. Blood sugars have not required any sliding scale support as of this time today. He denies pain. Normal Sinus Rythym noted. Will continue to monitor.
[2020-01-17 19:35] VITALS: BP 165/89
[2020-01-17 23:50] VITALS: BP 145/80
--- NOTE | 2020-01-18 04:09 | NUR ---
ASSUMED PT CARE AROUND 1930. AXOX4. INDEPENDENT [facility] ADLs. VSS. NO S/S ACUTE DISTRESS NOTED OR REPORTED AT THIS TIME. WILL CONT TO MONITOR FOR ANY CHANGES IN CONDITION.
[2020-01-18 05:25] VITALS: BP 145/88
[2020-01-18 06:18] LABS: ALBUMIN 3.1 g/dL (3.4-5.0); CALCIUM 8.1 mg/dL (8.5-10.1); CREATININE 3.5 mg/dL (0.7-1.3); PHOSPHORUS 4.5 mg/dL (2.5-4.9); POTASSIUM 5.9 mmol/L (3.5-5.1)
[2020-01-18 07:24] VITALS: BP 155/78
--- NOTE | 2020-01-18 08:43 | EKG ---
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: [facility] : 1955 Requested By: Colleen Dominguez Order Number: [id number] MD: Panchito Sandhu Measurements Intervals Hardin Rate: 62 P: 60 GA: 242 QRS: 23 QRSD: 91 T: 57 QT: 432 QTc: 439 Interpretive Statements Sinus rhythm Prolonged GA interval Probable anteroseptal infarct, recent Compared to ECG 06/21/2019 20:15:47 No significant changes Electronically Signed On 01-18-2020 8:41:46 CDT by Panchito Sandhu [email or web address] <ELECTRONICALLY SIGNED> By: Panchito Sandhu MD, [facility] 01/18/20 0841 1512 1512 Panchito Sandhu MD, [facility] /EPI
--- NOTE | 2020-01-18 09:44 | NUR ---
WOUND CONSULT; THE PATIENT IS ALERT AND ORIENTIED X3. THE PATIENT HAS INSENTATE FEET. HE DID NOT KNOW THAT HE TORE THE NAIL OFF THE RIGHT 3RD TOE. NO S/S OF INFECTION. HEALTHY WOUND BED WITH HEALTHY RED TISSUE. RECOMMENDATION; CRUSTING WITH MARATHON M/W/F PRN, COVER WITH A BANDAID. DISCUSSED WITH NAEL
[2020-01-18 11:27] VITALS: BP 156/79
[2020-01-18 16:11] VITALS: BP 143/73
--- NOTE | 2020-01-18 18:32 | NUR ---
Assumed patient care at 0715. Vital signs are stable, LSCTA, abdomen is soft and non-tender, BS x's 4; he denies pain. Blood sugars have not required any Sliding Scale Insulin. Patient had to get a new IV placed in left inner forearm, as one in right hand was leaking when this nurse assumed care. Patient continues to be compliant, pleasant and cooperative. No new concerns. Will report to on-coming RN.
[2020-01-18 19:26] VITALS: BP 133/67
[2020-01-19 03:49] VITALS: BP 145/82
--- NOTE | 2020-01-19 04:10 | NUR ---
Assumed pt care at 1900. Pt's A/OX4, VSS. Pt denies pain on assessment. Up ad mima w/o problems. SR on the monitor. Dsg intact on Right 3rd toe. IVF infusing via LFA,wrapped in coban per pt's request d/t beeping when he sleeps on the arm. Resting quietly w/o distress noted,will continue to monitor pt.
[2020-01-19 05:15] LABS: CALCIUM 7.8 mg/dL (8.5-10.1); CREATININE 3.6 mg/dL (0.7-1.3)
[2020-01-19 05:49] LABS: POTASSIUM 5.8 mmol/L (3.5-5.1)
[2020-01-19 07:33] VITALS: BP 157/83
--- NOTE | 2020-01-19 09:06 | NUR ---
ASSUMED CARE AT 0700. PT IS ALERT AND ORIENTED. NO COMPLAINTS AT THIS TIME. VSSA/RA ON TELE NSR. TOLERATING DIET, BLOOD SUGARS MONITORED. PIV INFUSING WIHTOUT ISSUES. BANDAGE TO RIGHT TOE C/D/I. PT IS UAL AND INDEPENDENT IN THE ROOM. WILL CONTINUE TO MONITOR
[2020-01-19 11:07] VITALS: BP 140/63
--- NOTE | 2020-01-19 11:53 | NUR ---
PT ADMTITED RELATED TO CKD. CM REVIEWED CHART AND SPOKE WITH CARE TEAM. CM CALLED AND SPOKE WITH PT THIS DAY. PT INDICATED HE LIVES IN A HOUSE WITH HIS WITH 8 STEPS ENTER AND 8 STEPS INSIDE. PT INDICATED HE HAD BEEN INDEPDENENT WITH GAIT AND ADLS OUTDOOR GUIDE BUT THAT HE HAS A CANE FOR USE. PT INDICATED NO RECENT HH HX. PT INDICATED HE PLANS TO RETURN HOME ONCE MEDICALLY STABLE. IT'S ANTICIPATED THAT PT WILL LIKELY DISCHARGE HOME WITH NO NEEDS. CM FOLLOWING SHOULD ANY DC NEEDS ARISE.
[2020-01-19] MEDS ORDERED: LANTUS SUBQ (12:52)
[2020-01-19 15:43] VITALS: BP 142/71
[2020-01-19 19:27] VITALS: BP 140/84
--- NOTE | 2020-01-20 04:14 | NUR ---
Assumed pt care at 1900. Pt is A/OX4, VSS. Denies pain on assessment. Up ad mima w/o any problems. Continent of B&B. Dsg in place on right 3rd toe C/D/I. Pt remains on Telemetry,SR. IVF infusing via LFA IV w/o problems. Resting w/o distress noted at this time, will continue to monitor pt.
[2020-01-20 04:43] VITALS: BP 142/73
[2020-01-20 07:01] LABS: ALBUMIN 3.4 g/dL (3.4-5.0); CALCIUM 8.2 mg/dL (8.5-10.1); CREATININE 3.6 mg/dL (0.7-1.3); PHOSPHORUS 3.9 mg/dL (2.5-4.9); POTASSIUM 5.5 mmol/L (3.5-5.1)
[2020-01-20 07:29] VITALS: BP 144/65
--- NOTE | 2020-01-20 09:18 | HC ---
[facility] [place] [address] CONSULTATION Name: SINDY HERRERA Room #: 452-P ADM IN M.R.#: [id number] Admission: 01/16/20 Attend Phys: Marcus Lay MD Discharge: Date of : 59 Report #: [id number] THIS REPORT FOR: cc: Stan Ingram Brady DO Al-Absi, Ahmed I. MD ~ CC: Stan Lay DATE OF SERVICE: 01/17/2020 REASON FOR CONSULTATION: Elevated potassium and chronic kidney disease. REASON FOR PRESENTATION: Right third toe avulsion. HISTORY OF PRESENT ILLNESS: A 64-year-old with past medical history of diabetes mellitus, chronic kidney disease. We are being asked to evaluate him because of elevated creatinine and hyperkalemia. The patient presented for an avulsion on his third toe. He was admitted for further evaluation of his wounds. The patient is known to have chronic kidney disease and sees Dr. Taylor in our clinic. Most recent creatinine in July of this last year was up to 3.2. He is not maintained on any potassium supplements. However, it is pointed out that he has dietary nondiscretion when it comes to his dietary habits. When the patient presented yesterday, his creatinine was above his baseline. It is anticipated long-term that the patient's kidney function will worsen and he had seen the kidney education in our clinic. His potassium was 6.2. He is not maintained on any angiotensin receptor yuni. He does not take any potassium supplementation. He is not maintained on spironolactone or angiotensin receptor yuni. The potassium was treated appropriately yesterday by the primary team. The patient was admitted and I was asked to evaluate his hyperkalemia and his elevated creatinine. He denies any uremic symptoms. He has no chest pain or shortness of breath. He has no urinary symptoms. MEDICATIONS: 1. Atorvastatin. 2. Carvedilol. 3. Amlodipine. 4. Aspirin. 5. Allopurinol. 6. Gabapentin. ALLERGIES: None. FAMILY HISTORY: Significant for hypertension. PAST MEDICAL AND SURGICAL HISTORY: Extensive and includes the following: [facility] [address] [place] [address] CONSULTATION Name: SINDY HERRERA Room #: 452-P [facility] IN [facility]#: [id number] Admission: 01/16/20 Attend Phys: Marcus Lay MD Discharge: Date of : 59 Report #: [id number] 1. CKD with a baseline creatinine of around 3. 2. Diabetes mellitus. 3. Hypertension. 4. Coronary artery disease. 5. Hyperlipidemia. 6. 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 SOCIAL HISTORY: He denies drug or alcohol abuse. He lives independently. REVIEW OF SYSTEMS: CONSTITUTIONAL: No fever or chills. CARDIOVASCULAR: No chest pain or palpitation. PULMONARY: No cough or hemoptysis. GASTROINTESTINAL: No nausea or vomiting. GENITOURINARY: No frequency, urgency. MUSCULOSKELETAL: As per the history of present illness. NEUROLOGICAL: No weakness, no headache, no dizziness. PHYSICAL EXAMINATION: GENERAL: He was alert, oriented. VITAL SIGNS: Temperature was 36.7, blood pressure was 148/72. He was afebrile. HEAD AND NECK: No jugular venous distention. CHEST: No crackles. CARDIOVASCULAR: Regular with no rub detected. ABDOMEN: Soft and nontender. EXTREMITIES: Lower extremities, no edema. Dressing is applied over the right third toe. LABORATORY DATA: Laboratory values reviewed. Labs from today pending; however, yesterday's labs revealed a hemoglobin of 11.2, sodium of 135, potassium of 6.2, BUN of 65 and creatinine of 4.1. ASSESSMENT AND PLAN: 1. Stage 4 chronic kidney disease. 2. Acute kidney injury. 3. Hyperkalemia. 4. Diabetes mellitus. 5. Hypertension. 6. Right third toe wound. 7. The patient is known to have chronic kidney disease and is followed by our kidney clinic. He does have evidence of progression of his chronic kidney disease. His hyperkalemia is likely related to dietary nondiscretion. Appropriately treated for his hyperkalemia yesterday. Labs today are pending. 8. He is mildly acidotic. This might have also contributed to his hyperkalemia, I will add sodium bicarbonate. 9. Continue IV fluid. [address] [address] CONSULTATION Name: SINDY HERRERA Spenser Room #: 452-P [facility] IN .R.#: [id number] Admission: 01/16/20 Attend Phys: Marcus Lay MD Discharge: Date of : 59 Report #: [id number] 10. Wound care. 11. Resume his blood pressure and blood sugar medication. 12. He is already being tucked in our clinic with a kidney education and he will see Dr. Taylor towards the end of this month. <ELECTRONICALLY SIGNED> By: Christopher Layne MD 01/20/20917 4 4 Christopher Layne MD /nt
--- NOTE | 2020-01-20 10:47 | NUR ---
WOUND CONSULT; THE RIGHT 3RD TOE WAS REASSESSED TODAY. THE WOUND IS STABLE WITH NO S/S OF INFECTION. THE PERIWOUND IS MASCERATED. RECOMMENDATIONS; ADD A FOAM DRESSING TO ABSORB AND PROTECT. DISCUSSED WITH NAEL
--- NOTE | 2020-01-20 14:31 | NUR ---
assumed care of pt at 0700. pt aox4 in no acute distress. up ad mima. voicing no concerns. labs showing improvement. anticipate d/c later this afternoon. no other changes to report. wcm.
[2020-01-20] MEDS ORDERED: VELTASSA8.4 GM PO (15:33)
[2020-01-20] MEDS ORDERED: SODIUM BICARBO650 M3 PO (15:33)
[2020-01-20] MEDS ORDERED: DEMADEX20 MG PO (15:33)
[2020-01-20 15:42] VITALS: BP 161/93
[2020-01-20 15:44] VITALS: BP 144/65
--- NOTE | 2020-01-20 16:15 | NUR ---
CARE TEAM INDICATED THAT PT IS MEDICALLY STABLE TO DC HOME THIS DAY. PT IS TO DC HOME WITH NEEDS. NO OTHER CM INTERVENTION INDICATED. CASE CLOSED.
== END 2020-01-20 16:26 | disposition home or self-care (01) | DRG 683 ==
LOC: ER 14:04 → EROBS 16:29 → 4W 16:29
PROVIDERS: Hospitalist; Nurse Practitioner Family; ADMIT Hospitalist; ATTEND Hospitalist
DX: N17.9 Acute kidney failure, unspecified (principal); K92.2 Gastrointestinal hemorrhage, unspecified; E87.2 Acidosis; I69.354 Hemiplegia and hemiparesis following cerebral infarction affecting left non-dominant side; I69.351 Hemiplegia and hemiparesis following cerebral infarction affecting right dominant side; I13.2 Hypertensive heart and chronic kidney disease with heart failure and with stage 5 chronic kidney disease, or end stage renal disease; N18.6 End stage renal disease; E87.5 Hyperkalemia; M10.9 Gout, unspecified; I25.10 Atherosclerotic heart disease of native coronary artery without angina pectoris; E78.5 Hyperlipidemia, unspecified; K21.9 Gastro-esophageal reflux disease without esophagitis; M19.90 Unspecified osteoarthritis, unspecified site; G89.29 Other chronic pain; I50.9 Heart failure, unspecified; S91.209A Unspecified open wound of unspecified toe(s) with damage to nail, initial encounter; E11.22 Type 2 diabetes mellitus with diabetic chronic kidney disease; Z99.2 Dependence on renal dialysis; X58.XXXA Exposure to other specified factors, initial encounter; Y93.89 Activity, other specified; Y92.89 Other specified places as the place of occurrence of the external cause; Y99.8 Other external cause status; Z79.899 Other long term (current) drug therapy
CPT/HCPCS: 10045

== ENCOUNTER 2020-02-02 23:28 | Inpatient (IN) | payer OTHER ==
[~2020-02-02] VITALS: Ht 172.7 cm; Wt 110.2 kg
--- NOTE | ~2020-02-02 | EMS ---
[place] [address] EMS Patient Care Report Name: SINDY HERRERA Room #: REG Arsenio#: [id number] Admission: 02/02/20 Attend Phys: Discharge: Date of : 59 Report #: [id number] THIS REPORT FOR: //name// Report Transmitted: 02/03/2020 00:52 EMS Care Summary [place], [place]/[facility] Incident [id number] @ 02/02/2020 22:45 Incident Location [address] [place] [address] Patient SINDY HERRERA Male, 64 Years 1955 Patient Address [address] [place] [address] Patient History Hypertension (HTN),Hyperlipidemia,Tremors,Type 1 Diabetes, Patient Allergies No known allergies, Patient Medications Carvedilol, Gabapentin, Atorvastatin, Aspirin, Novolog, Amlodipine, Humalog, Allopurinol, Chief Complaint TREMORS Disposition Transported No Lights/[place] Dispatch Reason Diabetic Problem Transported To [facility] Narrative DISPATCHED EMERGENCY ON A DIABETIC PROBLEM. PUMPER 41 ON SCENE UPON ARRIVAL. V/S'S OBTAINED BY PUMPER 41. 64 Y/O MALE SITTING IN CHAIR IN FRONT ROOM APPEARING IN NO IMMEDIATE DISTRESS. GCS 15 AND A/OX4. [place] [address] EMS Patient Care Report Name: SINDY HERRERA Room #: [facility]#: [id number] Admission: 02/02/20 Attend Phys: Discharge: Date of : 59 Report #: [id number] REQUESTS TRANSPORTATION TO [facility]. PT STATES THAT HIS TREMORS HAVE BEEN INCREASINGLY BECOMING WORSE X 2 DAYS. NOTICED THAT PT FELT WARM TO TOUCH ABOUT AN HOUR AGO AND BELIEVES PT HAS A TEMPATURE. PT DENIES ANY OTHER MEDICAL COMPLAINTS. NEGATIVE STROKE SCALE. MOVED WITHOUT INCIDENT TO AMBULANCE VIA STAIR CHAIR AND STRETCHER. MASKED PLAED ON PT. PLACED ON MONITOR AND V/S'S OBTAINED. INCREASED TEMP NOTED ALONG WITH INCREASED BLOOD GLUCOSE. IV ESTABLISHED. TRANSPORTED TO [facility]. REASSESSED ENROUTE. REMAINS GCS 15 AND A/OX4. V/S'S CONTINUOUSLY MONITORED THROUGHOUT. REPORT CALLED TO HOSPITAL. MOVED WITHOUT INCIDENT TO ER HOSPITAL BED. PT CARE TRANSFERRED TO ED RN. Initial Vitals @23:18P: 98,R: 18,BP: 124/73,Pain: 0/10,GCS: 15,SpO2: 95,Revised Trauma: 12, @23:04P: 99,R: 16,BP: 124/83,Pain: 0/10,GCS: 15,Temp: 102F,Revised Trauma: 12,[place] Suspected: false @PTAP: 104,R: 16,BP: 140/84,Pain: 0/10,GCS: 15,Glucose: 344,SpO2: 98,Revised Trauma: 12, Assessments @22:55MENTAL:Person Oriented,Time Oriented,Place Oriented,Event Oriented,SKIN:Hot,HEENT:Eyes: Left Pupil: 4-mm,Eyes: Right Pupil: 4-mm,Neck/Airway: No Abnormalities,LUNG SOUNDS:ABDOMEN:PELVIS//GI:EXTREMITIES:Capillary Refill: Right Lower: < 2 Sec,Capillary Refill: Left Upper: < 2 Sec,Capillary Refill: Left Lower: < 2 Sec,Capillary Refill: Right Upper: < 2 Sec,Left Arm: No Abnormalities,Right Arm: No Abnormalities,Left Leg: No Abnormalities,Right Leg: No Abnormalities,PULSE:Radial: 2+ Normal,NEURO:No Abnormalities, Impression Need for continuous medical supervision Procedures @22:55ALS AssessmentResponse: UnchangedSucceeded@23:00StretcherResponse: Unchanged@22:57StairchairResponse: Unchanged@23:06Saline Lock 10cc (20 ga) Site: Hand-RightResponse: UnchangedSucceeded@23:043-Lead ECGResponse: UnchangedSucceeded Timeline GROUND OPERATIONS CREW MEMBER,BP: 140/84 M,PULSE: 104,RR: 16 R,SPO2: 98 Ox,ETCO2: ,B,PAIN: 0,GCS: 15, 22:44,Call Received 22:44,Dispatch Notified 22:45,Dispatched 22:47,En Route 22:53,On Scene 22:55,At Patient [address] [place] [address] EMS Patient Care Report Name: SHARONSINDY B Room #: REG JANNIE Cesar#: [id number] Admission: 02/02/20 Attend Phys: Discharge: Date of : 59 Report #: [id number] 22:55,ALS Assessment,Response: UnchangedSucceeded, 22:57,Stairchair,Response: Unchanged 23:00,Stretcher,Response: Unchanged 23:04,3-Lead ECG,Response: UnchangedSucceeded, 23:04,BP: 124/83 M,PULSE: 99,RR: 16 R,SPO2: Ox,ETCO2: ,BG: ,PAIN: 0,GCS: 15, 23:06,Saline Lock 10cc 20 ga Site: Hand-Right,Response: UnchangedSucceeded, 23:13,Depart Scene 23:18,BP: 124/73 M,PULSE: 98,RR: 18 R,SPO2: 95 Ox,ETCO2: ,BG: ,PAIN: 0,GCS: 15, 23:22,At Destination 23:40,Call Closed Disclaimer v1.1 Copyright 2020 [employer] This EMS Care Summary contains data elements from the applicable legal record (which may be displayed differently). It is designed to provide pertinent information for the following purposes: continuity of care, clinical quality, and state data reporting. The complete legal record is available to ED staff and administrators of the receiving hospital in [email or web address]'s Patient Tracker. All data is provided "as is."
--- NOTE | ~2020-02-02 | EMS ---
[place] [address] EMS Patient Care Report Name: SINDY HERRERA Room #: REG Arsenio#: [id number] Admission: 02/02/20 Attend Phys: Discharge: Date of : 59 Report #: [id number] THIS REPORT FOR: //name// Report Transmitted: 02/03/2020 00:46 EMS Care Summary [place], [place]/[facility] Incident [id number] @ 02/02/2020 22:45 Incident Location [address] [place] [address] Patient SINDY HERRERA Male, 64 Years 1955 Patient Address [address] [place] [address] Patient History Hypertension (HTN),Hyperlipidemia,Tremors,Type 1 Diabetes, Patient Allergies No known allergies, Patient Medications Carvedilol, Gabapentin, Atorvastatin, Aspirin, Novolog, Amlodipine, Humalog, Allopurinol, Chief Complaint TREMORS Disposition Transported No Lights/[place] Dispatch Reason Diabetic Problem Transported To [facility] Narrative DISPATCHED EMERGENCY ON A DIABETIC PROBLEM. PUMPER 41 ON SCENE UPON ARRIVAL. V/S'S OBTAINED BY PUMPER 41. 64 Y/O MALE SITTING IN CHAIR IN FRONT ROOM APPEARING IN NO IMMEDIATE DISTRESS. GCS 15 AND A/OX4. CONS[place] [address] EMS Patient Care Report Name: SINDY HERRERA Room #: [facility]#: [id number] Admission: 02/02/20 Attend Phys: Discharge: Date of : 59 Report #: [id number] REQUESTS TRANSPORTATION TO [facility]. PT STATES THAT HIS TREMORS HAVE BEEN INCREASINGLY BECOMING WORSE X 2 DAYS. NOTICED THAT PT FELT WARM TO TOUCH ABOUT AN HOUR AGO AND BELIEVES PT HAS A TEMPATURE. PT DENIES ANY OTHER MEDICAL COMPLAINTS. NEGATIVE STROKE SCALE. MOVED WITHOUT INCIDENT TO AMBULANCE VIA STAIR CHAIR AND STRETCHER. MASKED PLAED ON PT. PLACED ON MONITOR AND V/S'S OBTAINED. INCREASED TEMP NOTED ALONG WITH INCREASED BLOOD GLUCOSE. IV ESTABLISHED. TRANSPORTED TO [facility]. REASSESSED ENROUTE. REMAINS GCS 15 AND A/OX4. V/S'S CONTINUOUSLY MONITORED THROUGHOUT. REPORT CALLED TO HOSPITAL. MOVED WITHOUT INCIDENT TO ER HOSPITAL BED. PT CARE TRANSFERRED TO ED RN. Initial Vitals @23:18P: 98,R: 18,BP: 124/73,Pain: 0/10,GCS: 15,SpO2: 95,Revised Trauma: 12, @23:04P: 99,R: 16,BP: 124/83,Pain: 0/10,GCS: 15,Temp: 102F,Revised Trauma: 12,NM Suspected: false @PTAP: 104,R: 16,BP: 140/84,Pain: 0/10,GCS: 15,Glucose: 344,SpO2: 98,Revised Trauma: 12, Assessments @22:55MENTAL:Person Oriented,Time Oriented,Place Oriented,Event Oriented,SKIN:Hot,HEENT:Eyes: Left Pupil: 4-mm,Eyes: Right Pupil: 4-mm,Neck/Airway: No Abnormalities,LUNG SOUNDS:ABDOMEN:PELVIS//GI:EXTREMITIES:Capillary Refill: Right Lower: < 2 Sec,Capillary Refill: Left Upper: < 2 Sec,Capillary Refill: Left Lower: < 2 Sec,Capillary Refill: Right Upper: < 2 Sec,Left Arm: No Abnormalities,Right Arm: No Abnormalities,Left Leg: No Abnormalities,Right Leg: No Abnormalities,PULSE:Radial: 2+ Normal,NEURO:No Abnormalities, Impression Need for continuous medical supervision Procedures @22:55ALS AssessmentResponse: UnchangedSucceeded@23:00StretcherResponse: Unchanged@22:57StairchairResponse: Unchanged@23:06Saline Lock 10cc (20 ga) Site: Hand-RightResponse: UnchangedSucceeded@23:043-Lead ECGResponse: UnchangedSucceeded Timeline DETECTIVE PRECINCT,BP: 140/84 M,PULSE: 104,RR: 16 R,SPO2: 98 Ox,ETCO2: ,B,PAIN: 0,GCS: 15, 22:44,Call Received 22:44,Dispatch Notified 22:45,Dispatched 22:47,En Route 22:53,On Scene 22:55,At Patient [address] [place] [address] EMS Patient Care Report Name: SHARONSINDY B Room #: REG JANNIE Cesar#: [id number] Admission: 02/02/20 Attend Phys: Discharge: Date of : 59 Report #: [id number] 22:55,ALS Assessment,Response: UnchangedSucceeded, 22:57,Stairchair,Response: Unchanged 23:00,Stretcher,Response: Unchanged 23:04,3-Lead ECG,Response: UnchangedSucceeded, 23:04,BP: 124/83 M,PULSE: 99,RR: 16 R,SPO2: Ox,ETCO2: ,BG: ,PAIN: 0,GCS: 15, 23:06,Saline Lock 10cc 20 ga Site: Hand-Right,Response: UnchangedSucceeded, 23:13,Depart Scene 23:18,BP: 124/73 M,PULSE: 98,RR: 18 R,SPO2: 95 Ox,ETCO2: ,BG: ,PAIN: 0,GCS: 15, 23:22,At Destination 23:40,Call Closed Disclaimer v1.1 Copyright 2020 [employer] This EMS Care Summary contains data elements from the applicable legal record (which may be displayed differently). It is designed to provide pertinent information for the following purposes: continuity of care, clinical quality, and state data reporting. The complete legal record is available to ED staff and administrators of the receiving hospital in [employer] Patient Tracker. All data is provided "as is."
--- NOTE | ~2020-02-02 | O ---
[facility] [place] [address] OPERATIVE REPORT Name: SINDY HERRERA Room #: 358-P ADM IN M.R.#: [id number] Admission: 02/03/20 Attend Phys: Toni Fair MD Discharge: Date of : 59 Report #: [id number] THIS REPORT FOR: cc: [facility] - Clinic physician unknown [facility] - Clinic physician unknown Jose Mcleod MD ~ CC: [facility] unknown Toni Fair DATE OF SERVICE: 02/05/2020 PREOPERATIVE DIAGNOSIS: Right third toe distal phalanx osteomyelitis. POSTOPERATIVE DIAGNOSIS: Right third toe distal phalanx osteomyelitis. PROCEDURE: Right third toe amputation at the PIP joint. SURGEON: Jose Mcleod MD. STAFF ELECTRICAL ENGINEER: Ariane Puri PA-C. ANESTHESIA: LMA. SPECIMENS: The right third toe was sent for permanent pathology. CONDITION UPON LEAVING THE OPERATING ROOM: Stable. INDICATIONS FOR PROCEDURE: The patient is a 64-year-old gentleman with an ulceration over his tip of the right third toe. He has diabetes and has had purulence draining from the toe. MRI scan showed osteomyelitis of the distal phalanx and after discussion with he and his , they elected for a third toe amputation. DESCRIPTION OF PROCEDURE: Risks, benefits, alternatives, complications were discussed in detail with the patient including but not limited to risk of anesthesia, risk of damage to nerves, arteries, blood vessels, risk for infection, bleeding, risk for continued infection, and need for higher level amputation. Informed consent was obtained from the patient. Right foot was appropriately marked in the preoperative holding area. He was brought to the operating room and placed in the supine position on operating room table. LMA anesthesia was induced without complication. Right lower extremity was prepped and draped in normal sterile fashion. Timeout was performed, properly identifying the patient and procedure as well as the instrumentation. All in the operating room were in agreement. A Tourni-Cot was placed at the base of the third toe and a fishmouth type incision was drawn on the skin. This incision was then made with a 15 blade down to the bone and the amputation was [facility] [address] [place] [address] OPERATIVE REPORT Name: SINDY HERRERA Room #: 358-P [facility] IN .R.#: [id number] Admission: 02/03/20 Attend Phys: Toni Fair MD Discharge: Date of : 59 Report #: [id number] performed to the level of the PIP joint. The wound was thoroughly irrigated and then the skin was closed with 3-0 nylon. Soft dressings were applied. The patient tolerated this procedure well and went to the recovery room under care of Anesthesia postoperatively. By: 0914 0948 Jose Mcleod MD /nt
[~2020-02-02 23:28] MED LIST changes: +DEMADEX20 MG PO; +SODIUM BICARBO650 M3 PO; +VELTASSA8.4 GM PO
[2020-02-02 23:29] VITALS: BP 136/66
[2020-02-03 00:24] LABS: HEMATOCRIT 30.4 % (42.0-52.0); HEMOGLOBIN 9.9 gm/dL (14.0-18.0); MCH 29.5 pg (26.0-34.0); MCHC 32.7 g/dL (28.0-37.0); MCV 90.3 fL (80.0-100.0); PLATELET COUNT 235 thou/uL (150-400); RBC 3.37 mil/uL (4.50-6.00); RDW 15.6 % (10.5-14.5); WBC 10.5 thou/uL (4.0-11.0)
[2020-02-03 00:25] LABS: CALCIUM 7.6 mg/dL (8.5-10.1); CREATININE 5.8 mg/dL (0.7-1.3)
[2020-02-03 00:31] LABS: ALBUMIN 2.9 g/dL (3.4-5.0); TOTAL BILIRUBIN 0.3 mg/dL (0.2-1.0); TOTAL PROTEIN 7.4 g/dL (6.4-8.2)
[2020-02-03 01:19] LABS: ABSOLUTE NEUTROPHILS 6.6 thou/uL (1.4-8.2)
[2020-02-03 01:20] LABS: PLATELET ESTIMATE NORMAL
[2020-02-03 01:23] LABS: URINE BILIRUBIN NEGATIVE (Negative); URINE BLOOD NEGATIVE (Negative); URINE CLARITY CLEAR; URINE COLOR YELLOW; URINE GLUCOSE-RANDOM* NEGATIVE (Negative); URINE KETONES NEGATIVE (Negative); URINE LEUKOCYTES-REFLEX NEGATIVE (Negative); URINE NITRITE-REFLEX NEGATIVE (Negative); URINE PROTEIN (DIPSTICK) TRACE (Negative); URINE UROBILINOGEN 0.2 E.U./dl (0.2-1.0)
[2020-02-03 01:39] LABS: AMP/METHAMP Negative (Negative); BARBITURATES Negative (Negative); BENZODIAZEPINES Negative (Negative); COCAINE Negative (Negative); METHADONE Negative (Negative); OPIATES Negative (Negative); PCP Negative (Negative)
[2020-02-03 04:10] VITALS: BP 112/55
--- NOTE | 2020-02-03 07:10 | NUR ---
COVID 19 PRECAUTIONS MAINTAINED
--- NOTE | 2020-02-03 12:17 | NUR ---
Pharmacy contacted to tube calcium packet
[2020-02-03 19:44] VITALS: BP 124/64
[2020-02-03 21:10] VITALS: BP 155/86
[2020-02-04 01:06] LABS: GLYCOHEMOGLOBIN (HGB A1C) 6.8 % (4.8-5.6)
[2020-02-04 04:31] VITALS: BP 129/73
[2020-02-04 05:32] LABS: ALBUMIN 2.6 g/dL (3.4-5.0); CALCIUM 7.3 mg/dL (8.5-10.1); CREATININE 5.2 mg/dL (0.7-1.3); MAGNESIUM 1.4 mg/dL (1.8-2.4); PHOSPHORUS 5.5 mg/dL (2.5-4.9); POTASSIUM 4.9 mmol/L (3.5-5.1)
[2020-02-04 05:48] LABS: HEMATOCRIT 28.2 % (42.0-52.0); HEMOGLOBIN 9.1 gm/dL (14.0-18.0); MCH 29.4 pg (26.0-34.0); MCHC 32.5 g/dL (28.0-37.0); MCV 90.4 fL (80.0-100.0); RBC 3.11 mil/uL (4.50-6.00); RDW 15.3 % (10.5-14.5)
[2020-02-04 07:53] VITALS: BP 144/71
--- NOTE | 2020-02-04 10:36 | HC ---
[facility] [place] [address] CONSULTATION Name: SINDY HERRERA Room #: 358-P ADM IN M.R.#: [id number] Admission: 02/03/20 Attend Phys: Toni Fair MD Discharge: Date of : 59 Report #: [id number] THIS REPORT FOR: cc: [facility] - Clinic physician unknown [facility] - Clinic physician unknown Christian Jin MD ~ CC: [facility] unknown Toni Fair DATE OF SERVICE: 02/03/2020 CHIEF COMPLAINT: Right third toe ulceration. HISTORY OF PRESENT ILLNESS: This is a 64-year-old male patient with a history of diabetes mellitus, who notes having developed an ulceration to the tip of his right third toe approximately a week ago. He states it has become slightly painful and is draining with some odor. He was seen in the Emergency Department today and has been admitted due to the possibility of diabetic foot infection, possible underlying osteomyelitis. I have been asked to see him with regard to wound care. 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 SOCIAL HISTORY: Negative for alcohol or tobacco use. FAMILY HISTORY: Noncontributory. REVIEW OF SYSTEMS: CONSTITUTIONAL: The patient denies fever, chills or weight loss. NEUROLOGICAL: The patient denies focal weakness, numbness or tingling. EYES: The patient denies visual change, redness, or drainage. ENT: The patient denies earache, nasal drainage or sore throat. CARDIOVASCULAR: The patient denies chest pain, palpitations or diaphoresis. PULMONARY: The patient denies cough, shortness of breath. GASTROINTESTINAL: The patient denies nausea, vomiting, diarrhea or abdominal pain. ORTHOPEDIC: The patient does have the ulceration of the right third toe with drainage and odor. Other systems in a 14-point review of systems are negative. MEDICATIONS: Include carvedilol, aspirin, atorvastatin, allopurinol, Veltassa, torsemide, sodium bicarbonate. [facility] [address] [place] [address] CONSULTATION Name: SINDY HERRERA Room #: 358-P [facility] IN ..#: [id number] Admission: 02/03/20 Attend Phys: Toni Fair MD Discharge: Date of : 59 Report #: [id number] ALLERGIES: No known drug allergies. PHYSICAL EXAMINATION: VITAL SIGNS: At this time include temperature not documented, pulse 78, respiratory rate 16, blood pressure 120/57. GENERAL: This is a well-developed, well-nourished male patient who appears to be in no distress. HEENT: Head normocephalic. Nose and throat are clear. NECK: Supple. LUNGS: Clear. ABDOMEN: Bowel sounds present. EXTREMITIES: Lower extremities demonstrate nonpalpable distal pulses. He has an ulceration to the tip of the right third toe. There is some eschar callus and some purulent drainage noted. No obvious exposed bone at this time. NEUROLOGIC: The patient is alert and oriented. He does have a little bit of residual weakness on the left side. LABORATORY DATA: White blood cell count 10,000, hemoglobin 9.9. Sodium 134, potassium 4.0, chloride 97, CO2 of 20, BUN 108, creatinine 5.8, glucose 325, calcium 7.6, albumin is 2.9. X-ray evaluation of the right foot demonstrates soft tissue gas and soft tissue swelling of the third toe, gas extends to the terminal tuft of the third toe. There is mild loss of cortex and terminal tuft consistent with early osteomyelitis. CLINICAL IMPRESSION: 1. Diabetic foot ulceration, right third toe. 2. Osteomyelitis, right third toe. 3. Peripheral vascular disease by clinical exam. 4. Chronic kidney disease stage 4. 5. Diabetes mellitus with hyperglycemia. 6. Previous cerebrovascular accident. RECOMMENDATIONS: At this point in time, we will recommend topical Betadine and dry gauze to the right third toe for the time being. We will check an MRI as well as arterial Dopplers. I have discussed with him that he will likely need an amputation of the distal portion of the third toe in order to eradicate the underlying osteomyelitis. We will need to make sure that he has adequate blood flow for healing prior to consider surgical wounding. I appreciate being asked to see the patient in consultation. <ELECTRONICALLY SIGNED> By: Christian Jin MD 02/04/20 1036 1750 2146 Christian Jin MD /nt
--- NOTE | 2020-02-04 14:24 | NUR ---
Nutrition: pt admit with general weakness, fever, right foot cellulitis. Right middle toe with osteomyelitis, necrotic and plan for toe amputation tomorrow. pt reports decreased appetite for several months, states he lost his taste buds. Has had no weight loss, BMI 37 indicating obesity class 2. PO intake approx. 50% of meals so far in hospital. Instructed on ordering meals as desired. Pt plans to do so. REC add Carb controlled to diet order if pt begins to eat better. BG 141-229, hx DM. On Renal diet for hx CKD. Reviewed nutrition for wound healing with pt/protein needs. Will monitor need to add additional supplements. Place as low risk for now.
--- NOTE | 2020-02-04 15:02 | NUR ---
INITIAL ASSESSMENT: Received consult. SW reviewed chart and spoke with nursing and attending physician. Pt was admitted from home due to fever/cellulitis of right 3rd toe. Pt's COVID-19 test was negative. Pt with hx of DM. ID/wound care/ortho consulted. Pt to have amputation tomorrow morning. SW met with pt at bedside. Introduced role of SW. Pt is alert/orientated x 4. Pt reports he lives at home with his . Prior to admission, pt was independent with ADLs. Pt does have a cane. Pt has used [facility] in the past for HH services. Pt's PCP is Dr. Stan Ingram at [facility]. Therapy to evaluate pt after surgery to assist with recommendations for discharge needs. SW is following to assist as needed with discharge planning.
[2020-02-04 16:45] VITALS: BP 158/84
--- NOTE | 2020-02-04 17:52 | NUR ---
PATIENT ALERT ORIENTED X4. WILL BE HAVING SURGERY TOMORROW HENCE NPO AFTER MIDNIGHT. HE HAS RESTED IN BED MOST OF THE DAY. NO COMPLAINTS VOICED. WILL CONT WITH PLAN OF CARES.
[2020-02-04 20:40] VITALS: BP 153/73
[2020-02-05] VITALS (10 sets, daily range): BP systolic 158–172; BP diastolic 70–83
[2020-02-05 05:57] LABS: ALBUMIN 2.7 g/dL (3.4-5.0); CALCIUM 7.6 mg/dL (8.5-10.1); CREATININE 5.1 mg/dL (0.7-1.3); PHOSPHORUS 5.1 mg/dL (2.5-4.9); POTASSIUM 4.2 mmol/L (3.5-5.1)
--- NOTE | 2020-02-05 14:01 | NUR ---
SW reviewed chart and spoke with nursing and attending physician. Pt had right third toe amputation this morning. PT eval ordered. SW met with pt at bedside to discuss discharge plan. Pt states he feels strong enough to go home with HH services. Options provided. Pt has used [facility] in the past and would like to use them again. SW confirmed pt's home address and phone number. SW faxed HH referral and COVID-19 negative test results to HH. Notified liaison of new referral. Possible weekend discharge. Contact info for HH placed in pt's discharge summary. Finalized discharge orders/summary will need to be faxed to HH when available. Pt states his family will be able to provide transportation home. SW is available to assist should needs arise. [facility] --
--- NOTE | 2020-02-05 15:17 | HC ---
[facility] [place] [address] CONSULTATION Name: SINDY HERRERA Room #: 358-P ADM IN M.R.#: [id number] Admission: 02/03/20 Attend Phys: Toni Fair MD Discharge: Date of : 59 Report #: [id number] THIS REPORT FOR: cc: [facility] - Clinic physician unknown [facility] - Clinic physician unknown Christopher Layne MD ~ CC: [facility] unknown Toni Fair REASON FOR CONSULTATION: Acute kidney injury. REASON FOR THE PRESENTATION: Weakness and shaking. HISTORY OF PRESENT ILLNESS: This is a 64-year-old with past medical history of hypertension and chronic kidney disease. He was recently admitted to the hospital and treated for hyperkalemia. He sees Dr. Taylor in the clinic. He is supposed to see him in the end of this month. We had stabilized his kidney function during his prior hospitalization and he attained a creatinine value of around 3.5. After his dismissal, he has not been feeling well. He reported that he had some fever with shaking. He could not stop shaking and presented for further evaluation and management of his fever. He did have some wound during the previous hospitalizations on the right middle toe, which has been progressively worsening. He had some evaluation done by the wound care during the previous hospitalizations. The patient is currently being ruled out for COVID-19. I was consulted to assist with the management of his chronic kidney disease. MEDICATIONS: 1. Atorvastatin. 2. Carvedilol. 3. Amlodipine. 4. ____ 5. Torsemide. 6. Sodium bicarbonate. 7. Gabapentin. 8. Allopurinol. PAST MEDICAL AND SURGICAL HISTORY: 1. Chronic kidney disease. 2. Hypertension. 3. Diabetes mellitus. 4. Recent admission for hyperkalemia. 5. History of CVA. 6. Gout. 7. Hyperlipidemia. ALLERGIES: None. [facility] [address] [place] [address] CONSULTATION Name: SINDY HERRERA Room #: 358-P [facility] IN [facility]#: [id number] Admission: 02/03/20 Attend Phys: Toni Fair MD Discharge: Date of : 59 Report #: [id number] SOCIAL HISTORY: He lives with his . No reported drug or alcohol abuse. REVIEW OF SYSTEMS: GENERAL: Significant for fever. CARDIOVASCULAR: No chest pain or palpitation. PULMONARY: No cough or hemoptysis. GASTROINTESTINAL: No nausea or vomiting. GENITOURINARY: No frequency, no urgency. MUSCULOSKELETAL: As per the history of present illness. SKIN: As per the history of present illness. NEUROLOGICAL: Significant for tremors and shaking. FAMILY HISTORY: Significant for diabetes mellitus and hypertension. PHYSICAL EXAMINATION: VITAL SIGNS: Blood pressure is 125/76, pulse rate 68 and respiratory rate is 14. HEAD AND NECK: No jugular venous distention, no bruit, no thyromegaly. CHEST: No crackles. CARDIOVASCULAR: Regular with no rub detected. ABDOMEN: Soft, nontender. EXTREMITIES: Lower extremities, soft tissue gas and soft tissue swelling over the third toe. There is also some erythema. LABORATORY DATA: Hemoglobin is 9.9. Sodium is 134, potassium is 4.0. Carbon dioxide is 20, BUN is 108, creatinine is 5.8. ASSESSMENT AND PLAN: 1. Acute kidney injury. 2. Chronic kidney disease. 3. Suspected osteomyelitis of the right middle toe. 4. Recent history of hyperkalemia. 5. Coronary artery disease. 6. History of cerebrovascular accident. 7. The patient's acute kidney injury is likely related to over diuresis. 8. Discontinue torsemide. 9. Continue IV fluid. 10. ID evaluation for his potential osteomyelitis. 11. Appropriate antibiotic therapy initiated. 12. Basic acute kidney injury workup with imaging and urine studies to rule out potential obstructions. 13. Repeat labs in the morning. [address] [address] CONSULTATION Name: HERRERASINDY B Room #: 358-P ADM IN M.R.#: [id number] Admission: 02/03/20 Attend Phys: Toni Fair MD Discharge: Date of : 59 Report #: [id number] 14. Hold [facility]. 15. We will continue to follow during his hospital stay. <ELECTRONICALLY SIGNED> By: Christopher Layne MD 02/05/20 1517 1017 1230 Christopher Layne MD /jose
--- NOTE | 2020-02-05 17:53 | NUR ---
PATIENT BACK FROM SURGERY. NO COMPLAIN OF PAIN AT THIS TIME. STATES HE FEELS MUCH BETTER POST SURGERY. RESPIRATIONS ARE NON LABORED. HE IS ALERT ORIENTED X4. ON PHONE WITH FAMILY MOST OF THE DAY. WILL CONT WITH PLAN OF CARE.
--- NOTE | 2020-02-05 21:57 | NUR ---
PT RESTING IN BED TALKING ON THE PHONE. IVF INTACT. PT REQUESTED HS SNACK AND PROVIDED. PT SBA TO BSC. PT DENIES PAIN IN RLE. RLE BANDAGE INTACT DRY POSITIE FOR CIRCULATION CHECK. CALLS FOR ASSISTANCE.
[2020-02-06 01:26] VITALS: BP 160/74
[2020-02-06 05:02] VITALS: BP 171/71
[2020-02-06 06:02] VITALS: BP 140/100
[2020-02-06 06:29] LABS: ALBUMIN 2.7 g/dL (3.4-5.0); CALCIUM 7.7 mg/dL (8.5-10.1); CREATININE 4.8 mg/dL (0.7-1.3); PHOSPHORUS 3.8 mg/dL (2.5-4.9); POTASSIUM 5.3 mmol/L (3.5-5.1)
[2020-02-06 07:31] VITALS: BP 169/80
[2020-02-06 15:15] VITALS: BP 159/79
--- NOTE | 2020-02-06 17:53 | NUR ---
UP W/ PHYSICAL THERAPY AND POST OP SHOE. HYPERTENSIVE BUT STABLE. PAIN WELL CONTROLLED WITH CURRENT MED REGIMEN. SUGARS SOMEWHAT CONTROLLED. GOOD APPETITE. IMPULSIVE AT TIMES. WCM.
[2020-02-06 20:50] VITALS: BP 166/88
[2020-02-07 03:17] VITALS: BP 175/81
--- NOTE | 2020-02-07 05:01 | NUR ---
ASSUMED CARE AT 1900, ASSESSMENT COMPLETED. PT REPORTS SOME PAIN IN RIGHT FOOT EXTENDING INTO LEG. DENIES SOB. HAS REPORTED NAUSEA TWICE OVERNIGHT, GIVEN ZOFRAN ONCE; THIS AM HE ASKED FOR SALTINE'S. HAS BEEN SB-SR ON TELE. DRESSING TO RIGHT FOOT IS C/D/I. NO OTHER CONCERNS, WILL CONTINUE TO MONITOR.
[2020-02-07 07:19] VITALS: BP 158/83
[2020-02-07 08:54] VITALS: BP 158/83
[2020-02-07 15:36] LABS: ALBUMIN 2.9 g/dL (3.4-5.0); CALCIUM 7.9 mg/dL (8.5-10.1); CREATININE 4.4 mg/dL (0.7-1.3); PHOSPHORUS 3.4 mg/dL (2.5-4.9); POTASSIUM 4.5 mmol/L (3.5-5.1)
[2020-02-07] MEDS ORDERED: KEFLEX500 M1 PO (15:36)
--- NOTE | 2020-02-07 16:41 | NUR ---
ASSUMED PATIENT CARE AT 0700. A/0 X4. FORGETFUL. DC HOME WITH HH.
--- NOTE | 2020-02-08 18:06 | PATH ---
[facility] [address] [place] [address] PATHOLOGY RPT PROCEDURE Name: SHARONSINDY Spenser Room #: 358-P DIS IN M.R.#: [id number] Admission: 02/03/20 Date of : 59 Discharge: 02/07/20 Report #: [id number] Path Case #: [id number] [facility] Accession Number: [id number] . 01 Material submitted: . toe - RIGHT THIRD TOE. Modifiers: right, third . 01 Clinical history: . Osteomyelitis . 02 Diagnosis: Right third toe, amputation: - Skin and subcutaneous tissue showing ulceration, gangrenous necrosis and marked acute inflammation extending into underlying bone associated with acute osteomyelitis. - Surgical margin of bone showing viable cartilage as well as reactive bone. (IUV/db; 02/08/2020) LBQ 02/08/2020 1551 Local . 02 Electronically signed: . Radha Merida MD, Pathologist NPI- [id number] . 01 Gross description: . The specimen is received in formalin, labeled "Sindy Cerrato, right third toe". Received is a partial amputated digit measuring 2.5 x 2.2 x 1.5 cm in greatest dimensions. The bone margin is smooth and concave in appearance, consistent with disarticulation. The bone and soft tissue margins are inked black. The nail is present displaying a dark brown appearance. Immediately adjacent to the nail, there is a poorly circumscribed, irregular in contour and pink-bell lesion measuring 1.6 x 1.4 cm, which is 0.8 cm from the closest skin margin. A full length longitudinal cross-section is submitted in cassette A1, following decalcification. (CAA; 02/05/2020) QA/QAC 02/05/2020 1604 Local . 02 Pathologist provided ICD-10: L97.519, I96, L98.9, M86.171 . 02 CPT . 522267, 695013 Specimen Comment: A courtesy copy of this report has been sent to [phone], [phone] Specimen Comment: [id number] Specimen Comment: Report sent to / [place] [address] PATHOLOGY RPT PROCEDURE Name: SINDY CERRATO Room #: 358-P DIS IN M.R.#: [id number] Admission: 02/03/20 Date of : 59 Discharge: 02/07/20 Report #: [id number] Path Case #: [id number] Performed at: 01 [facility] Giraldo [address] [place] [address] [address], [place], [place] [id number] MD Demarco Card MD Phone: [phone] Performed at: [address] [id number] MD Radha Merida MD Phone: [phone]
--- NOTE | 2020-02-09 14:03 | NUR ---
SERGEY received call from Gogo at [facility]. Pt was discharged home on Saturday, 02/06. Discharge orders/summary were not faxed to . SERGEY faxed the discharge orders/summary to , who will contact pt to arrange first HH visit. SW is available to assist should needs arise.
== END 2020-02-07 16:43 | disposition home health service (06) | DRG 853 ==
LOC: ER 23:28 → 3W 02-03 01:43 → EROBS 02-03 01:43 → 3W 02-03 20:34
PROVIDERS: Emergency Medicine; Hospitalist; Internal Medicine Nephrology; Nurse Practitioner Family; ADMIT Internal Medicine; ATTEND Internal Medicine
PROC: 0Y6T0Z1 Detachment at Right 3rd Toe, High, Open Approach (ICD-10-PCS; principal; 2020-02-03)
DX: A41.9 Sepsis, unspecified organism (principal); N17.0 Acute kidney failure with tubular necrosis; E43 Unspecified severe protein-calorie malnutrition; I69.354 Hemiplegia and hemiparesis following cerebral infarction affecting left non-dominant side; M86.8X7 Other osteomyelitis, ankle and foot; N18.5 Chronic kidney disease, stage 5; I13.2 Hypertensive heart and chronic kidney disease with heart failure and with stage 5 chronic kidney disease, or end stage renal disease; I25.10 Atherosclerotic heart disease of native coronary artery without angina pectoris; M10.9 Gout, unspecified; L97.519 Non-pressure chronic ulcer of other part of right foot with unspecified severity; E11.65 Type 2 diabetes mellitus with hyperglycemia; E11.22 Type 2 diabetes mellitus with diabetic chronic kidney disease; E78.5 Hyperlipidemia, unspecified; K21.9 Gastro-esophageal reflux disease without esophagitis; E11.621 Type 2 diabetes mellitus with foot ulcer; E11.51 Type 2 diabetes mellitus with diabetic peripheral angiopathy without gangrene; B95.61 Methicillin susceptible Staphylococcus aureus infection as the cause of diseases classified elsewhere; B95.1 Streptococcus, group B, as the cause of diseases classified elsewhere; Z20.828 Contact with and (suspected) exposure to other viral communicable diseases; I50.9 Heart failure, unspecified; L03.031 Cellulitis of right toe; T50.2X5A Adverse effect of carbonic-anhydrase inhibitors, benzothiadiazides and other diuretics, initial encounter; G89.29 Other chronic pain; E11.42 Type 2 diabetes mellitus with diabetic polyneuropathy; N14.1 Nephropathy induced by other drugs, medicaments and biological substances; Z79.899 Other long term (current) drug therapy; Z68.37 Body mass index [BMI] 37.0-37.9, adult; Z79.82 Long term (current) use of aspirin; Y92.89 Other specified places as the place of occurrence of the external cause; Z79.4 Long term (current) use of insulin
CPT/HCPCS: 10879; 50010; 50101; 50386; 56527; 57091; 62110; 62900; 70005

== ENCOUNTER 2020-03-08 17:33 | Emergency (ER) | payer OTHER ==
[~2020-03-08] VITALS: Ht 172.7 cm; Wt 104.3 kg
[~2020-03-08 17:33] MED LIST changes: +KEFLEX500 M1 PO
[2020-03-08 18:31] VITALS: BP 133/69
[2020-03-08] MEDS ORDERED: MIRALAX119 GM PO (20:15)
[2020-03-08] MEDS ORDERED: SENNA PLUS TAB1 EACH PO (20:15)
== END 2020-03-08 20:30 | disposition home or self-care (01) ==
LOC: ER 17:33
DX: K59.00 Constipation, unspecified (principal); I25.10 Atherosclerotic heart disease of native coronary artery without angina pectoris; K21.9 Gastro-esophageal reflux disease without esophagitis; E78.5 Hyperlipidemia, unspecified; I13.0 Hypertensive heart and chronic kidney disease with heart failure and stage 1 through stage 4 chronic kidney disease, or unspecified chronic kidney disease; E11.22 Type 2 diabetes mellitus with diabetic chronic kidney disease; N18.4 Chronic kidney disease, stage 4 (severe); I50.9 Heart failure, unspecified; Z86.73 Personal history of transient ischemic attack (TIA), and cerebral infarction without residual deficits; Z79.4 Long term (current) use of insulin; Z79.82 Long term (current) use of aspirin; Z79.899 Other long term (current) drug therapy

== ENCOUNTER 2020-05-05 13:53 | Inpatient (IN) | payer OTHER ==
[~2020-05-05] VITALS: Ht 172.7 cm; Wt 103.4 kg
[2020-05-05] VITALS (7 sets, daily range): BP systolic 130–205; BP diastolic 53–95
[~2020-05-05 13:53] MED LIST changes: +MIRALAX119 GM PO; +SENNA PLUS TAB1 EACH PO
--- NOTE | 2020-05-05 15:47 | EKG ---
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: : 1955 Requested By: Chapin Tillman Order Number: [id number] MD: Ishan Wilson Measurements Intervals [place] Rate: 72 P: 54 OR: 221 QRS: 30 QRSD: 84 T: 46 QT: 420 QTc: 460 Interpretive Statements Sinus rhythm Prolonged OR interval Borderline low voltage, extremity leads Anteroseptal infarct, old Baseline wander in lead(s) V2 Compared to ECG 01/16/2020 15:12:01 No significant changes Electronically Signed On 05-05-2020 15:47:21 CDT by Ishan Wilson [email or web address] <ELECTRONICALLY SIGNED> By: Ishan Wilson MD, FAC 05/05/20 1547 1506 1506 Ishan Wilson MD, [facility] /EPI
[2020-05-05 16:07] LABS: ABSOLUTE NEUTROPHILS 5.6 thou/uL (1.4-8.2); BASOPHILS 0.6 % (0.0-2.0); EOSINOPHILS 6.8 % (0.0-3.0); HEMATOCRIT 27.5 % (42.0-52.0); LYMPHOCYTES 15.6 % (24.0-44.0); MCH 28.9 pg (26.0-34.0); MCHC 32.6 g/dL (28.0-37.0); MCV 88.8 fL (80.0-100.0); MONOCYTES 9.6 % (1.0-8.0); PLATELET COUNT 203 thou/uL (150-400); POLYS 67.4 % (36.0-66.0); RDW 17.2 % (10.5-14.5); WBC 8.3 thou/uL (4.0-11.0)
[2020-05-05 16:21] LABS: ANION GAP 11 mmol/L (7-16); BUN 50 mg/dL (7-18); CALCIUM 8.6 mg/dL (8.5-10.1); CHLORIDE 111 mmol/L (98-107); CO2 21 mmol/L (21-32); CREATININE 3.5 mg/dL (0.7-1.3); GLUCOSE 77 mg/dL (74-106); POTASSIUM 5.7 mmol/L (3.5-5.1); SODIUM 143 mmol/L (136-145)
[2020-05-05 16:31] LABS: ALBUMIN 3.5 g/dL (3.4-5.0); SGOT 18 U/L (15-37); SGPT 34 U/L (30-65); TOTAL BILIRUBIN 0.6 mg/dL (0.2-1.0); TOTAL PROTEIN 7.6 g/dL (6.4-8.2); TROPONIN-I <0.06 ng/mL (<0.06)
--- NOTE | 2020-05-05 19:24 | NUR ---
NOTIFIED OF ADMISSION AROUND 1730; LOSS PREVENTION ANALYST READ NOTES OF MAIN COMPLAIN SOB; NOTIFIED MOTOR VEHICLE ASSEMBLY SUPERVISOR; PER MOTOR VEHICLE ASSEMBLY SUPERVISOR PT. WILL NOT BE TEST FOR COVID; TEXTED DR. BRISENO; NO ANSWER BACK; WHEN RECEIVED REPORT ASKED ER NURSE; PER ER NURSE PT. WILL NOT BE TEST FOR COVID DUE TO HAD TEST A WEEK AGO; PER NURSE PHYSICIAN RELATED SOB DUE TO FLUID OVERLOAD; PT. ARRIVED AT FLOOR AROUND 1825; A0X4; NO C/O PAIN; EDUCATED ABOUT FALL PREVENTIONS; ID BANDS PLACED; AT 1840 ORDERS ON PLACED; COVID TEST ORDERED; PHYSICIAN PAGED; PER PHYSICIAN WANTS COVID TEST & "WHATEVER IT TAKES" AFTER NOTIFIED PT. NEEDS TO BE TRANSFER TO ; CHARGE NURSE NOTIFIED; PT. NOTIFIED ABOUT ISOLATION; PT. ON ISOLATION; PASSED ON REPORT;
[2020-05-06] VITALS: BP 158/68
--- NOTE | 2020-05-06 02:14 | NUR ---
REPORT RECEIVED FROM 2N NURSE. PATIENT ARRIVED AT THE UNIT AT APPROX 2100. PATIENT IS A/OX4. DENIES SOB, N/V/, PAIN. AFEBRILE. VSS. ON RA, SATS > 98. COVID TEST DONE AND SEND DOWN TO LAB. ON TELE. PATIENT'S BELONGING (IPHONE WITH COST ESTIMATING ENGINEER, BAG OF CLOTHS, MEN'S WALLET. DENIES NEEDS. WILL KEEP MONITORING.
[2020-05-06 04:00] VITALS: BP 160/78
[2020-05-06 05:26] LABS: HEMATOCRIT 26.1 % (42.0-52.0); HEMOGLOBIN 8.5 gm/dL (14.0-18.0); MCH 28.8 pg (26.0-34.0); MCHC 32.7 g/dL (28.0-37.0); MCV 87.9 fL (80.0-100.0); RBC 2.96 mil/uL (4.50-6.00); RDW 16.7 % (10.5-14.5); WBC 8.4 thou/uL (4.0-11.0)
[2020-05-06 05:32] LABS: CALCIUM 8.5 mg/dL (8.5-10.1); CREATININE 3.5 mg/dL (0.7-1.3); POTASSIUM 5.7 mmol/L (3.5-5.1)
[2020-05-06 08:10] VITALS: BP 192/88
[2020-05-06 11:11] VITALS: BP 161/66
[2020-05-06 14:59] VITALS: BP 180/80
--- NOTE | 2020-05-06 18:08 | NUR ---
PT CARE ASSUMED AT 0700, PT ALERT AND ORIENTED X3, FORGETFUL AT TIMES. PT DENIES ANY CHEST PAIN, NAUSEA AND VOMITTING. PT COMPLAINS OF INTERMITTENT MOUTH PAIN. PT IS ON ROOM AIR, NO SIGNS OF DISTRESS NOTED. CALL LIGHT AND TABLE WITHIN REACH. BED AT LOWEST LEVEL WITH ALARM ON.
[2020-05-06 19:42] VITALS: BP 182/78
[2020-05-07 00:09] VITALS: BP 162/64
--- NOTE | 2020-05-07 03:56 | NUR ---
Pt. moved from 349 to rm. 350 at HS. BG of 81 at HS , refused lantus. No signs of hypoglycemia. Pt. encouraged to all for assistance due to being unsteady at times. He slept well during the night . Tolerating room air well though he reported being short of breath with exertion. Afebrile. Voiding per urinal. Making some progress towards care plan goals.
[2020-05-07 04:43] VITALS: BP 167/60
[2020-05-07 05:37] LABS: ALBUMIN 3.3 g/dL (3.4-5.0); CALCIUM 8.3 mg/dL (8.5-10.1); CREATININE 3.5 mg/dL (0.7-1.3); POTASSIUM 5.5 mmol/L (3.5-5.1)
[2020-05-07 07:35] VITALS: BP 162/60
[2020-05-07] MEDS ORDERED: CARVEDILOL25 MG PO (08:50)
[2020-05-07 11:27] VITALS: BP 173/67
[2020-05-07 13:41] VITALS: BP 173/67
--- NOTE | 2020-05-07 14:04 | NUR ---
ASSUMED CARE APPROX 0700. PT ALERT AND ORIENTED X4. ASSESSMENT CHARTED AND VSS. PT ON RA W/O SIGNS OF DISTRESS NOTED. PT DENIES ACUTE PAIN. PT SHANICE CHEST PAIN. TO BE DISCHARGED TODAY PENDING DR. CLAUDIO'S SIGN-OFF. DR. CLAUDIO STATES THAT IT IS OK TO DISCHARGE AND PT TO F/U IN 1WK. DISCARGE INSTRUCTIONS REVIEWED W/ PT. PT DENIES ANY QUESTIONS OR CONCERNS REGARDING DISCHARGE PACKET. PT WAS NOT MONITORED ON TELE. IV D/C'D. PT ESCORTED OUT TIMELY. PT'S TO PICK HIM UP.
== END 2020-05-07 14:00 | disposition home or self-care (01) | DRG 291 ==
LOC: ER 13:53 → 3W 17:46 → EROBS 17:46 → 3W 18:12 → 2N 18:20 → 3W 21:00
PROVIDERS: Emergency Medicine; Hospitalist; ADMIT Hospitalist; ATTEND Hospitalist
DX: I13.0 Hypertensive heart and chronic kidney disease with heart failure and stage 1 through stage 4 chronic kidney disease, or unspecified chronic kidney disease (principal); J96.01 Acute respiratory failure with hypoxia; I50.31 Acute diastolic (congestive) heart failure; I16.1 Hypertensive emergency; N18.4 Chronic kidney disease, stage 4 (severe); J81.1 Chronic pulmonary edema; I69.954 Hemiplegia and hemiparesis following unspecified cerebrovascular disease affecting left non-dominant side; E87.5 Hyperkalemia; M10.9 Gout, unspecified; E78.5 Hyperlipidemia, unspecified; I25.10 Atherosclerotic heart disease of native coronary artery without angina pectoris; I16.0 Hypertensive urgency; I50.9 Heart failure, unspecified; E87.70 Fluid overload, unspecified; K21.9 Gastro-esophageal reflux disease without esophagitis; E11.22 Type 2 diabetes mellitus with diabetic chronic kidney disease; G89.29 Other chronic pain; M19.90 Unspecified osteoarthritis, unspecified site; Z20.828 Contact with and (suspected) exposure to other viral communicable diseases; Z79.4 Long term (current) use of insulin; Z79.82 Long term (current) use of aspirin; Z79.899 Other long term (current) drug therapy; Z91.14 Patient's other noncompliance with medication regimen
CPT/HCPCS: 10879

== ENCOUNTER → 2020-06-10 | Outpatient (CLI) | payer OTHER | LOC: SJCVC 12:24 | PROVIDERS: ATTEND Internal Medicine Cardiovascular Disease | DX: R94.31 Abnormal electrocardiogram [ECG] [EKG] (principal); I25.10 Atherosclerotic heart disease of native coronary artery without angina pectoris; I10 Essential (primary) hypertension; R60.9 Edema, unspecified ==

== ENCOUNTER 2020-07-30 13:14 | Emergency (ER) | payer OTHER ==
[~2020-07-30] VITALS: Ht 172.7 cm; Wt 104.3 kg
[2020-07-30 14:26] LABS: ABSOLUTE NEUTROPHILS 5.6 thou/uL (1.4-8.2); BASOPHILS 0.7 % (0.0-2.0); EOSINOPHILS 4.8 % (0.0-3.0); HEMATOCRIT 31.1 % (42.0-52.0); HEMOGLOBIN 9.8 gm/dL (14.0-18.0); LYMPHOCYTES 14.3 % (24.0-44.0); MCH 27.9 pg (26.0-34.0); MCHC 31.6 g/dL (28.0-37.0); MCV 88.4 fL (80.0-100.0); PLATELET COUNT 203 thou/uL (150-400); POLYS 70.2 % (36.0-66.0); RBC 3.52 mil/uL (4.50-6.00); RDW 17.6 % (10.5-14.5)
[2020-07-30 14:39] LABS: ANION GAP 12 mmol/L (7-16); BUN 54 mg/dL (7-18); CALCIUM 8.9 mg/dL (8.5-10.1); CHLORIDE 108 mmol/L (98-107); CO2 24 mmol/L (21-32); CREATININE 5.6 mg/dL (0.7-1.3); GLUCOSE 160 mg/dL (74-106); POTASSIUM 4.4 mmol/L (3.5-5.1); SODIUM 144 mmol/L (136-145)
[2020-07-30 14:49] LABS: DIRECT BILIRUBIN 0.2 mg/dL (<0.1-0.2); LIPASE 43 U/L (73-393); SGOT 20 U/L (15-37); SGPT 49 U/L (16-63); TOTAL BILIRUBIN 0.6 mg/dL (0.2-1.0); TOTAL PROTEIN 6.9 g/dL (6.4-8.2); TROPONIN-I <0.06 ng/mL (<0.06)
[2020-07-30 16:14] LABS: URINE BILIRUBIN NEGATIVE (Negative); URINE BLOOD 1+ (Negative); URINE CLARITY CLEAR; URINE COLOR YELLOW; URINE GLUCOSE-RANDOM* TRACE (Negative); URINE KETONES NEGATIVE (Negative); URINE LEUKOCYTES-REFLEX NEGATIVE (Negative); URINE NITRITE-REFLEX NEGATIVE (Negative); URINE PROTEIN (DIPSTICK) 3+ (Negative)
[2020-07-30 16:41] LABS: BACTERIA-REFLEX 1-9 Few /HPF (None Seen); CASTS None Seen /LPF (None Seen); CRYSTALS None Seen /LPF (None Seen); SQUAMOUS 0-3 Few /LPF (0-3); URINE RBC None Seen /HPF (0-2); URINE WBC-REFLEX 0-5 Rare /HPF (0-5)
[2020-07-30 16:52] LABS: HCO3 20.4 mmol/L (22.0-26.0); PCO2 34.8 mmHg (35.0-45.0); PO2 89.5 mmHg (80.0-100.0); pH 7.386 (7.360-7.450); sO2 96.8 % (92.0-98.0)
[2020-07-30] MEDS ORDERED: HYDROCODON-ACE1 EAC7 PO (17:53)
[2020-07-30 18:19] VITALS: BP 166/114
--- NOTE | 2020-08-01 07:43 | EKG ---
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 : 1955 Requested By: Jean Pierre Nuñez Order Number: [id number] MD: Ishan Wilson Measurements Intervals [place] Rate: 141 P: 0 NC: 48 QRS: 97 QRSD: 88 T: 70 QT: 401 QTc: 614 Interpretive Statements Sinus tachycardiaTachycardia, suspect atrial flutter Anterior infarct, old Prolonged QT interval Compared to ECG 05/05/2020 15:06:04 ST (T wave) deviation now present Prolonged QT interval now present Sinus rhythm no longer present First degree AV block no longer present Myocardial infarct finding still present Electronically Signed On 08-01-2020 7:43:27 BARIATRIC COORDINATOR by Ishan Wilson [email or web address] <ELECTRONICALLY SIGNED> By: Ishan Wilson MD, FACC 08/01/20 0743 1341 1341 Ishan Wilson MD, FAC /EPI
== END 2020-07-30 18:23 | disposition home or self-care (01) ==
LOC: ER 13:14
PROVIDERS: Nurse Practitioner
DX: R00.0 Tachycardia, unspecified (principal); M79.671 Pain in right foot; M25.571 Pain in right ankle and joints of right foot; R06.02 Shortness of breath; R05 Cough; R60.0 Localized edema; E66.01 Morbid (severe) obesity due to excess calories; I25.10 Atherosclerotic heart disease of native coronary artery without angina pectoris; E11.22 Type 2 diabetes mellitus with diabetic chronic kidney disease; I13.0 Hypertensive heart and chronic kidney disease with heart failure and stage 1 through stage 4 chronic kidney disease, or unspecified chronic kidney disease; N18.9 Chronic kidney disease, unspecified; I50.32 Chronic diastolic (congestive) heart failure; K21.9 Gastro-esophageal reflux disease without esophagitis; Z86.73 Personal history of transient ischemic attack (TIA), and cerebral infarction without residual deficits; Z89.022 Acquired absence of left finger(s); Z79.82 Long term (current) use of aspirin; Z79.4 Long term (current) use of insulin; Z79.899 Other long term (current) drug therapy; Z20.828 Contact with and (suspected) exposure to other viral communicable diseases; Z68.35 Body mass index [BMI] 35.0-35.9, adult

== ENCOUNTER 2020-08-14 03:29 | Inpatient (IN) | payer OTHER ==
[2020-08-14] VITALS (10 sets, daily range): BP systolic 136–183; BP diastolic 41–78
[~2020-08-14] VITALS: Ht 172.7 cm; Wt 90.3 kg
[~2020-08-14 03:29] MED LIST changes: +HYDROCODON-ACE1 EAC7 PO
[2020-08-14] MEDS ORDERED: DILTIAZEM ER90 M1 PO (03:35)
[2020-08-14] MEDS ORDERED: ANTACID650 MG PO (03:35)
[2020-08-14] MEDS ORDERED: ASPIR 8181 MG PO (03:36)
[2020-08-14] MEDS ORDERED: WARFARIN SODIU7.5 MG PO (03:36)
[2020-08-14] MEDS ORDERED: FUROSEMIDE 80 M80 M1 PO (03:36)
[2020-08-14] MEDS ORDERED: CARVEDILOL12.5 MG PO (03:36)
[2020-08-14] MEDS ORDERED: CALCITRIOL0.25 MCG PO (03:37)
[2020-08-14] MEDS ORDERED: RAMIPRIL2.5 MG PO (03:37)
[2020-08-14 04:07] LABS: ABSOLUTE NEUTROPHILS 8.5 thou/uL (1.4-8.2); BASOPHILS 0.8 % (0.0-2.0); HEMATOCRIT 25.3 % (42.0-52.0); HEMOGLOBIN 8.1 gm/dL (14.0-18.0); LYMPHOCYTES 13.7 % (24.0-44.0); MCH 27.6 pg (26.0-34.0); MCHC 31.9 g/dL (28.0-37.0); MCV 86.5 fL (80.0-100.0); MONOCYTES 10.7 % (1.0-8.0); PLATELET COUNT 289 thou/uL (150-400); POLYS 73.8 % (36.0-66.0); RBC 2.93 mil/uL (4.50-6.00); RDW 16.6 % (10.5-14.5); WBC 11.6 thou/uL (4.0-11.0)
[2020-08-14 04:22] LABS: ALBUMIN 2.6 g/dL (3.4-5.0); CALCIUM 8.6 mg/dL (8.5-10.1); CREATININE 8.7 mg/dL (0.7-1.3); POTASSIUM 4.4 mmol/L (3.5-5.1); TOTAL BILIRUBIN 0.4 mg/dL (0.2-1.0); TOTAL PROTEIN 7.2 g/dL (6.4-8.2)
[2020-08-14] MEDS ORDERED: NOVOLOG FL100 UNIT/M SUBQ (04:55)
[2020-08-14] MEDS ORDERED: LEVEMIR FL100 UNIT/2 SUBQ (04:55)
[2020-08-14] MEDS ORDERED: ZAROXOLYN 5MG TA5 MG PO (05:12)
[2020-08-14] MEDS ORDERED: LANTUS SUBQ (05:13)
[2020-08-14 05:23] LABS: INR 10.8
--- NOTE | 2020-08-14 09:33 | EKG ---
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: [facility] : 1955 Requested By: Nicholas Noel Order Number: [id number] MD: Denny Maki Measurements Intervals [place] Rate: 99 P: PA: QRS: 47 QRSD: 83 T: -17 QT: 372 QTc: 478 Interpretive Statements Atrial flutter Anterior infarct, old Borderline repolarization abnormality Compared to ECG 07/30/2020 13:41:00 Myocardial infarct finding still present Electronically Signed On 08-14-2020 9:33:40 CIRCULATING PROCESS INSPECTOR by Denny Maki [email or web address] <ELECTRONICALLY SIGNED> By: Denny Maki MD 08/14/20 0933 0332 1 Denny Maki MD /LAM
--- NOTE | 2020-08-14 10:50 | NUR ---
CALLED (J LUIS) LEFT MS UPDATING THAT HE WILL BE IN ED TO EARLY AFTERNOON BEFORE RECEIVING AN INPT BED.
--- NOTE | 2020-08-14 11:39 | NUR ---
J LUIS [facility] [phone]
[2020-08-14 12:13] LABS: PROTIME 132.7 Seconds (9.3-11.4)
[2020-08-14 12:35] LABS: INR 12.9
--- NOTE | 2020-08-14 16:02 | NUR ---
ASSUMED CARE AT 1305. PATIENT ARRIVED FROM ED TO ICU AT 1305. PATIENT ARRIVED WITH CLOTHING AND SHOES BUT PATIENT'S CAME AND VISITED FOR 3 MINUTES AND TOOK PATIENT'S BAG OF CLOTHING AND YELLOW/RED JACKET. PATIENT CALM AND COOPERATIVE.
[2020-08-14 18:20] LABS: HEMATOCRIT 26.2 % (42.0-52.0); HEMOGLOBIN 8.4 gm/dL (14.0-18.0); MCV 87.5 fL (80.0-100.0); RDW 15.8 % (10.5-14.5); WBC 14.5 thou/uL (4.0-11.0)
[2020-08-14 18:35] LABS: PROTIME 102.6 Seconds (9.3-11.4)
--- NOTE | 2020-08-14 18:45 | NUR ---
3 PERIPHERAL IV LINES WERE PLACED THIS AFTERNOON FOR ADDITIONAL ACCESS. THIS PATIENTS INR WAS 10 AT THE TIME A CENTRAL LINE WAS SUGGESTED. A 2ND INR THIS AFTERNOON HAD INCREASED TO 12. FOR PATIENT SAFTEY AND POLICY WE WILL AWAIT VITAMIN K AND FFP INFUSION FOR INR REVERSAL. IF A CENTRAL LINE IS ORDERED WE WILL REASSES LABS AND PLACE A CENTRAL ACCESS WHEN IT IS SAFE TO DO SO. VASCULAR ACCESS TEAM
[2020-08-15] VITALS (33 sets, daily range): BP systolic 108–177; BP diastolic 32–86
--- NOTE | 2020-08-15 03:30 | NUR ---
ASSUMED PT CARE AT 0250. VSS, ABLE TO COMMUNICATE NEEDS, PT TRANSFRED FROM 238 TO 248. PT ON PROTONIX AND CARDIZEM GTT. PT IS STABLE, NO COMPLAINTS, WILL CONTINUE TO MONITOR PER POC
[2020-08-15 04:45] LABS: HEMATOCRIT 20.8 % (42.0-52.0); HEMOGLOBIN 6.7 gm/dL (14.0-18.0); MCHC 32.4 g/dL (28.0-37.0); MCV 86.5 fL (80.0-100.0); RBC 2.41 mil/uL (4.50-6.00); RDW 15.4 % (10.5-14.5)
[2020-08-15 04:55] LABS: CALCIUM 8.3 mg/dL (8.5-10.1); CREATININE 8.6 mg/dL (0.7-1.3)
[2020-08-15 08:57] LABS: PROTIME 21.2 Seconds (9.3-11.4)
[2020-08-15 09:03] LABS: INR 2.1
--- NOTE | 2020-08-15 10:34 | NUR ---
Nutrition: pt admitted with suspected upper GIB. Hgb 6.7. Seen due to high risk screen for poor intake, weight loss. Visited with pt. Reports UBW 230# which is current. No loss seen. Decreased appetite past week. Appears well nourished. Wants to eat. GI consult stating PUD vs gastric erosions. Plan for EGD. Hx of CHF, DM, CVA, HTN, CKD4. Will follow for ability for diet to advance in timely manner within 48-72 hrs.
--- NOTE | 2020-08-15 16:14 | NUR ---
PT RESTING FOR MAJORITY OF THE DAY. WILL SIT/STAND AT BEDSIDE TO USE URINAL, FREQUENTLY. AT BEDSIDE FOR APPROX 2 HOURS. CARDIZEM AND PANTOPRAZOLE GTT INFUSING. NO BM TODAY. ONE UNIT OF PRBC'S GIVEN PER [facility] PROTOCAL/POLICY. STARTED ON CLEAR LIQUID DIET UNTIL MIDNIGHT. ENDOSCOPY WAS CANCELED DUE TO ELEVATED INR. ENDOSCOPY SCHEDULED FOR TOMORROW. FUA FISTULA IN PLACE, BRUIT AND THRILL INTACT. PT AFEBRILE, ADEQUATE UOP, NEEDS HOME MEDS RESTARTED. PT AND FAMILY HAVE BEEN EPDATED AND EDUCATED ON CONDITION AND POC. PT PROGRESSING TOWARDS POC.
--- NOTE | 2020-08-15 16:26 | NUR ---
PT ADMITTED RELATED TO GI BLEED. CM REVIEWED CHART AND SPOKE WITH CARE TEAM. CM CALLED AND SPOKE WITH PT'S SPOUSE. SHE INDICATED THAT THEY RESIDE IN A HOUSE WITH 10 STEPS THROUGH THE GARAGE TO THE MAIN LEVEL AND NO STEPS INSIDE. SPOUSE INDICATED THAT PT HAD USED A CANE TO ASSIST WITH MOBILITY BUT THAT HE HAD LOST IT. PT HAD A FWW BUT IT'S BROKEN. SPOUSE INDICATED THAT PT WOULD BENEFIT FROM A 4WW/ROLLATOR UPON DC. SPOUSE INDICATED HE HAD USED [facility] IN THE PAST. PT'S PCP IS DR. CELY TORRES. PT DOESN'T HAVE A HX OF SNF STAY AND SPOUSE INDICATED THAT PT LIKELY WOULDN'T BE RECEPTIVE TO POST ACUTE CARE STAY IF RECOMMENDED UPON DC. PT TO HAVE EGD IN AM. CM TO FOLLOW INDICATED WITH DC PLANNING.
--- NOTE | 2020-08-15 22:27 | NUR ---
ASSUMED CARE AT 1900. PT ALERT AND ORIENTED. VITALS STABLE. DENIES PAIN, SOB, NAUSEA OR VOMITING. HGB RECHECKED. RECEIVED ORDERS TO TRANSFER PATIENT TO ROOM 213. REPORT CALLED AND PT TRANSFERRED TO AT 2225
[2020-08-16 04:07] VITALS: BP 150/56
--- NOTE | 2020-08-16 05:52 | NUR ---
ASSESSMENTS CHARTED, MEDS CHARTED GIVEN. PATIENT TRANSFERED FROM ICU AROUND 2230. HAS BEEN NPO SINCE MIDNIGHT FOR EGD IN AM. PATIENT BECAME NAUSEOUS AND VOMITTED AROUND 0200. SYMPTOMS RESOLVED WITH MEDS. PATIENT ON CARDIZEM AND PANTOPRAZOLE DRIPS DURING SHIFT. FALL PRECAUTIONS IN PLACE DURING SHIFT.
[2020-08-16 06:21] LABS: HEMATOCRIT 21.6 % (42.0-52.0); MCH 27.4 pg (26.0-34.0); MCHC 32.6 g/dL (28.0-37.0); RBC 2.57 mil/uL (4.50-6.00); RDW 18.7 % (10.5-14.5); WBC 10.6 thou/uL (4.0-11.0)
[2020-08-16 06:24] LABS: INR 2.9; PROTIME 30.1 Seconds (9.3-11.4)
[2020-08-16 06:29] LABS: CALCIUM 8.8 mg/dL (8.5-10.1); CREATININE 8.3 mg/dL (0.7-1.3)
[2020-08-16 08:37] VITALS: BP 142/43
[2020-08-16 10:54] VITALS: BP 150/66
[2020-08-16 11:00] VITALS: BP 139/78; BP 140/70
[2020-08-16 14:40] VITALS: BP 140/60; BP 145/55; BP 150/60
[2020-08-16 19:40] LABS: INR 3.1; PROTIME 32.3 Seconds (9.3-11.4)
[2020-08-16 19:56] VITALS: BP 117/46
--- NOTE | 2020-08-16 20:06 | NUR ---
RN ASSUMED PT'S CARE AT 0700AM, PT IS A&OX3, PT'S GI LAB EGD HAS CHANGED TO 08/17/20, PT HAS FFP 1 UNIT AND RBC 1 UNIT TRANSFUSTION TODAY , PT'S HGB7.0 TODAY, PT DOES NOT HAVE TRANSFUSED REACHING BY THIS TIME, PT CAN GET UP TO CHAIR AND BATH ROOM WITH ASSIST, PT HAS 2 TIMES SMALL BLACK STOOL TODAY,PT'S VS ARE STABLE AT THIS TIME, RN HAS REPORTED TO NEXT SHIFT TO KEEP EYE ON PT.
[2020-08-17 04:40] VITALS: BP 139/78
--- NOTE | 2020-08-17 04:55 | NUR ---
CARE ASSUMED 1900. PT ALERT AND ORIENTED. ON CARDIZEM DRIP, AND PROTONIX. NPO SINCE MIDNIGHT FOR SCHEDULED EGD THIS AM. DENIES PAIN, CHEST DISCOMFORT, NAUSEA OR VOMITING. NO BM OVENIGHT. WILL CONTINUE TO MONITOR HGB LEVELS AND FOLLOW POC
[2020-08-17 05:18] LABS: HEMATOCRIT 22.2 % (42.0-52.0); HEMOGLOBIN 7.2 gm/dL (14.0-18.0); MCH 27.6 pg (26.0-34.0); MCHC 32.6 g/dL (28.0-37.0); MCV 84.7 fL (80.0-100.0); RBC 2.62 mil/uL (4.50-6.00); RDW 18.1 % (10.5-14.5); WBC 11.3 thou/uL (4.0-11.0)
[2020-08-17 05:25] LABS: INR 3.8; PROTIME 39.2 Seconds (9.3-11.4)
[2020-08-17 05:40] LABS: ALBUMIN 2.5 g/dL (3.4-5.0); CALCIUM 8.5 mg/dL (8.5-10.1); CREATININE 7.6 mg/dL (0.7-1.3); PHOSPHORUS 4.5 mg/dL (2.6-4.7); POTASSIUM 3.7 mmol/L (3.5-5.1)
[2020-08-17 08:00] VITALS: BP 151/61
[2020-08-17 11:20] VITALS: BP 156/81
--- NOTE | 2020-08-17 15:03 | NUR ---
Patient with need for community dialysis. Sp with patient and . Prefer [facility]. Prefer MWF legal manager. Faxed pertinent information to [facility]. Sp with admissions. Patient to have first dialysis tx in am.
[2020-08-17 16:30] VITALS: BP 147/66
[2020-08-17 20:08] VITALS: BP 154/44
--- NOTE | 2020-08-17 20:49 | NUR ---
assessmentas charted - meds as per mar - iv fluids d//c's as ordered. vit k given as ordered - pt jin diet and fluids with no co's of nausea. no co's of pain pt up to the chair this shift. crdizema dnprotonix continue as ordered - pt to have egd in the am if INR okay - pt to also receive dialysis tomorrow. seen by cardiology today as consulted. pt at times can be very vague in responses to questions. pt with no co's at the present time.
[2020-08-17 23:45] VITALS: BP 150/74
[2020-08-18 03:59] VITALS: BP 154/55
--- NOTE | 2020-08-18 04:14 | NUR ---
PT SETTLED OVERNIGHT. CONTINENT OF BOWEL AND BLADDER. PT KEPT NPO FOR POSSIBLE EGD THIS AM. ASSIST X 1 TO THE BEDSIDE COMMODE AND USING THE URINAL INDEPENDENTLY. REMAINS AFIB ON THE MONITOR, DENIES CHEST DISCOMFORT, NAUSEA OR VOMITING. WILL CONTINUE TO FOLLOW POC.
[2020-08-18 05:11] LABS: HEMOGLOBIN 7.4 gm/dL (14.0-18.0); MCH 27.6 pg (26.0-34.0); MCHC 32.2 g/dL (28.0-37.0); MCV 85.6 fL (80.0-100.0); RBC 2.69 mil/uL (4.50-6.00); RDW 18.3 % (10.5-14.5); WBC 11.9 thou/uL (4.0-11.0)
[2020-08-18 05:25] LABS: PROTIME 23.4 Seconds (9.3-11.4)
[2020-08-18 05:45] LABS: CALCIUM 8.6 mg/dL (8.5-10.1); CREATININE 7.3 mg/dL (0.7-1.3); MAGNESIUM 1.7 mg/dL (1.8-2.4); POTASSIUM 3.6 mmol/L (3.5-5.1)
[2020-08-18 06:07] LABS: INR 2.3
[2020-08-18 08:00] VITALS: BP 157/79
[2020-08-18 11:30] VITALS: BP 132/64
--- NOTE | 2020-08-18 13:58 | NUR ---
Pt had first hemodialysis tx today. 2nd planned for tomorrow along with an EGD per GI. Will fax first two flowsheets and any additional lab work to [facility] tomorrow. DC timeframe is uncertain. Pt will need 3 tx prior to transition to outpt and outpt schedule will need to be confirmed prior to dc. Will follow.
--- NOTE | 2020-08-18 16:19 | NUR ---
PT ALERT, ORIENTED TO PERSON, PLACE, AND SITUATION. PT RECEIVED FIRST HEMODIALYSIS THIS AM. PT DIALYSIS FISTULA IN LEFT UPPER ARM, BRUIT HEARD. PT IS ON CARDIZEM GTT. PT WAS UP TO MAX DOSE 20ML/HR FOR TWO HOURS TO CONTROL AFIB WITH TACHYCARDIA. PT RETURNED TO 10ML/HR TO MAINTAIN HR IN 90'S. PT IS STILL PRODUCING URINE, AND USES URINAL AT THE BEDSIDE. PT CONTINUES TO REST COMFORTABLY. POC: PT HAS DIALYSIS SCHEDULED AM 08/19/2020; EGD SCHEDULED AFTER DIALYSIS 08/19/2020. CONTINUE TO MONITOR CARDIZEM GTT, HR, AND BP. FALL PRECAUTIONS IN PLACE.
[2020-08-18 16:30] VITALS: BP 153/73
[2020-08-18 20:02] VITALS: BP 121/47
--- NOTE | 2020-08-19 03:49 | NUR ---
SLEPT MOST OF SHIFT. WORKING ON GOALS AND PLAN OF CARE FOR NOC. NPO FOR AM EGD. DENIES COMPLAINTS OF PAIN. CONTINUE TO ASSES CLOSELY. HAD HS SNACK AT BEDTIME.
[2020-08-19 05:21] VITALS: BP 154/59; BP 95/61
[2020-08-19 05:46] LABS: CALCIUM 8.2 mg/dL (8.5-10.1); MAGNESIUM 1.8 mg/dL (1.8-2.4); POTASSIUM 3.8 mmol/L (3.5-5.1)
[2020-08-19 06:01] LABS: CREATININE 5.2 mg/dL (0.7-1.3)
[2020-08-19 06:29] LABS: PROTIME 20.4 Seconds (9.3-11.4)
[2020-08-19 08:06] LABS: INR 2.1; PROTIME 21.5 Seconds (9.3-11.4)
[2020-08-19 08:14] VITALS: BP 144/69
[2020-08-19 10:48] LABS: INR 1.8
[2020-08-19 11:37] LABS: HEMATOCRIT 22.9 % (42.0-52.0); HEMOGLOBIN 7.2 gm/dL (14.0-18.0); MCH 27.6 pg (26.0-34.0); MCHC 31.6 g/dL (28.0-37.0); MCV 87.5 fL (80.0-100.0); RBC 2.61 mil/uL (4.50-6.00); RDW 18.5 % (10.5-14.5); WBC 10.9 thou/uL (4.0-11.0)
--- NOTE | 2020-08-19 12:15 | NUR ---
Pt had 2nd dialysis tx today and getting EGD. Will have 3rd tx on Saturday then possible dc home/to outpt. Rodolfo GUOI socialworker is contacting pt's to see which schedule opening they prefer; MWF 3rd shift or TTS 2nd shift. Dc logistics planner to fax his covid neg test 08-14-20, flowsheets and renal pcn this afternoon. Will follow.
--- NOTE | 2020-08-19 15:32 | NUR ---
08:00 AWAITING HIS GI BLEED R/O PROCEDURE. DIALYSIS IN PROGRESS AND FFP UNIT WAS TRANSFUSED AT THIS TIME PER THE DIALYSIS NURSE, TOLERATED SUCH NO SIGN'S OF A REACTION, VS STABLE PRE AND POST FFP. CONSENT SIGNED FOR GI PROCEDURE. PT. NPO WELL.
--- NOTE | 2020-08-19 15:33 | NUR ---
13:00 BACK FROM PROCEDURE AND TOLERATED SUCH WELL, CARDIZEM GTT AT 10MG/HR HOUR TOLERATING RATE HR-LOW 100'S. DR WAGNER CALLED TO INQUIRE ABOUT DRIP AND PLAN IS TO TORY TO WEAN HIM OFF SUCH WITH PO MEDICATIONS INSTEAD.
[2020-08-19 16:14] VITALS: BP 138/62
--- NOTE | 2020-08-19 16:38 | NUR ---
FAXED CLINICAL UPDATE DIALYSIS FLOWSHEETS FROM FIRST TREATMENT TO [facility] RECEIVED CONFIRMATION.
[2020-08-19 19:20] VITALS: BP 155/72
[2020-08-20 03:50] VITALS: BP 128/40
[2020-08-20 03:55] LABS: MAGNESIUM 1.8 mg/dL (1.8-2.4); POTASSIUM 3.9 mmol/L (3.5-5.1)
[2020-08-20 03:56] LABS: CREATININE 4.1 mg/dL (0.7-1.3)
[2020-08-20 04:11] LABS: CALCIUM 8.2 mg/dL (8.5-10.1)
--- NOTE | 2020-08-20 06:42 | NUR ---
PT SLEPT THROUGH MOST OF THE NIGHT. ON CARDIZEM GTTS, TITRATED PER PROTOCOL. A&OX4. UP AD ONESIMO; STEADY GAIT. AFIB ON THE MONITOR; HR IN 80S-90S THIS AM. PT ON DYLYSIS. PROGRESSING TOWARD DISCHARGE. CONTINUING TO ASSESS ACCORDING TO POC.
[2020-08-20 08:50] LABS: HEMATOCRIT 22.6 % (42.0-52.0); MCH 27.2 pg (26.0-34.0); MCHC 31.1 g/dL (28.0-37.0); MCV 87.5 fL (80.0-100.0); RBC 2.58 mil/uL (4.50-6.00); RDW 18.5 % (10.5-14.5)
[2020-08-20 12:00] VITALS: BP 179/64
[2020-08-20 12:11] LABS: INR 1.8; PROTIME 18.8 Seconds (9.3-11.4)
[2020-08-20 16:00] VITALS: BP 141/40
[2020-08-20 19:00] VITALS: BP 128/48
[2020-08-21 00:23] VITALS: BP 133/44
[2020-08-21 03:36] LABS: HEMATOCRIT 20.7 % (42.0-52.0); HEMOGLOBIN 6.6 gm/dL (14.0-18.0); MCH 27.5 pg (26.0-34.0); MCHC 31.8 g/dL (28.0-37.0); MCV 86.7 fL (80.0-100.0); RBC 2.39 mil/uL (4.50-6.00); RDW 17.7 % (10.5-14.5); WBC 12.4 thou/uL (4.0-11.0)
[2020-08-21 03:46] LABS: INR 1.7; PROTIME 17.2 Seconds (9.3-11.4)
[2020-08-21 03:47] LABS: CALCIUM 8.2 mg/dL (8.5-10.1); CREATININE 4.1 mg/dL (0.7-1.3); MAGNESIUM 1.8 mg/dL (1.8-2.4); POTASSIUM 3.4 mmol/L (3.5-5.1)
[2020-08-21 04:00] VITALS: BP 173/56
--- NOTE | 2020-08-21 05:42 | NUR ---
pt resting quietly in room able to move self in bed, vp director of creative strategy elevated back up to sbp in the 170's atenolol started yesterday, no c/o pain, labs still pending, will con't to monitor per ppoc.
[2020-08-21 07:30] VITALS: BP 150/54
[2020-08-21 12:46] VITALS: BP 152/65; BP 166/63
[2020-08-21 16:15] VITALS: BP 131/65; BP 166/63; BP 174/62
--- NOTE | 2020-08-21 18:00 | NUR ---
PT IS NOT PROGRESSING TOWARDS DISCHARGE AT THIS TIME. PT IS LOSING HEMOGLOBIN LEVEL, TWO UNITS WERE ORDERED. BLOOD WAS LAST GIVEN ON THE 08/19/20. BLOOD WAS ADMINISTERED POLICY. TWO RN'S SIGNED OFF. WHEN RN CAME BACK TO CHECK ON THE PT, PT STATED HAVING PAIN AT THE R ARM ON BOTH IV SITES. RN CHECKED, BOTH IV SITE HAD INFILTRATED, RN ATTEMPTED TO IV BUT PT STATED HAVING FEAR AND NEEDING ULTRA SOUND. IV TEAM WAS CONSULTED, ACCESS WAS CREATED, BLOOD COMPONENTS CONTINUING TO INFUSE AT THIS TIME. WILL BE FINISHED IN APPROXIMATELY 1.5 HOURS. NO COMPLAINTS FROM THE PT, FOOD/DRINK WAS PROVIDED PER REQUEST. WAS AT BEDSIDE FOR THE DAY, UPDATE WAS PROVIDED WHILE BOTH WERE PRESENT. BOTH VERBALIZED CONTENT WITH CARE BEING PROVIDED. CONTINUING TO MONITOR
[2020-08-21 19:46] VITALS: BP 131/65
[2020-08-21 21:12] LABS: HEMATOCRIT 29.3 % (42.0-52.0)
[2020-08-21 21:17] LABS: HEMOGLOBIN 9.5 gm/dL (14.0-18.0)
[2020-08-22 05:23] VITALS: BP 196/72
[2020-08-22 07:15] VITALS: BP 170/52
--- NOTE | 2020-08-22 08:08 | NUR ---
pt resting quietly in room thru the noc, hh drawn after blood finished came back up to 9.5, pt now refusing any further labs, no c/o pain, dialysis started this am, bp elevated, report given to next shift to con't ppoc.
[2020-08-22 08:56] LABS: INR 1.7; PROTIME 17.1 Seconds (9.3-11.4)
[2020-08-22 10:17] LABS: HEMOGLOBIN 8.2 gm/dL (14.0-18.0); MCH 28.7 pg (26.0-34.0); MCV 87.1 fL (80.0-100.0); RBC 2.87 mil/uL (4.50-6.00); WBC 10.5 thou/uL (4.0-11.0)
[2020-08-22 10:24] LABS: MAGNESIUM 1.7 mg/dL (1.8-2.4); POTASSIUM 3.5 mmol/L (3.5-5.1)
[2020-08-22 12:00] VITALS: BP 181/57
[2020-08-22 16:00] VITALS: BP 153/74
--- NOTE | 2020-08-22 18:29 | NUR ---
PT HAD DIALYSIS THIS AM, RESTED IN BED, AWARE THAT HE MAY BE ABLE TO GO HOME TOMORROW IF HIS HGB LEVELS OUT, PT UPDATED HIS FAMILY MEMBERS ON HIS STATUS,
[2020-08-22 20:05] VITALS: BP 152/61
[2020-08-23 03:56] VITALS: BP 146/64
--- NOTE | 2020-08-23 04:17 | NUR ---
Assumed pt care at 1900. Pt is alert and oriented. No sign of distress noted in pt. Denies any pain. Fall precaution in place. Assessment completed and documented. Scheduled meds administered to pt. Tolerated PO intake. No acute events overnight. Continue to monitor. No further needs at this time
[2020-08-23 05:26] LABS: HEMATOCRIT 27.7 % (42.0-52.0); HEMOGLOBIN 9.2 gm/dL (14.0-18.0); MCHC 33.4 g/dL (28.0-37.0); MCV 86.8 fL (80.0-100.0); RBC 3.19 mil/uL (4.50-6.00); RDW 16.9 % (10.5-14.5); WBC 9.5 thou/uL (4.0-11.0)
[2020-08-23 05:27] LABS: INR 1.4
[2020-08-23 05:39] LABS: CALCIUM 8.2 mg/dL (8.5-10.1); CREATININE 3.8 mg/dL (0.7-1.3); MAGNESIUM 1.8 mg/dL (1.8-2.4); POTASSIUM 3.4 mmol/L (3.5-5.1)
[2020-08-23 07:18] VITALS: BP 163/78
[2020-08-23 11:19] VITALS: BP 151/71
[2020-08-23 15:27] VITALS: BP 151/74
[2020-08-23] MEDS ORDERED: PACERONE 200 M200 M1 PO (15:49)
[2020-08-23] MEDS ORDERED: METOPROLOL SUCC50 MG PO (15:49)
--- NOTE | 2020-08-23 15:49 | NUR ---
FAXED REFERRAL TO [facility] FOR RADHA ANDRE SPOKE WITH LONI IN INTAKE SHE RECEIVED REFERRAL AND CHECKING PT'S INSURANCE WILL DELIVER WALKER TOMORROW.
[2020-08-23] MEDS ORDERED: NORVASC5 MG PO (15:50)
[2020-08-23 16:02] VITALS: BP 151/74
--- NOTE | 2020-08-23 16:11 | NUR ---
sp with patient and who report they are interested in [facility] rather than [facility]. Sp with [facility]. Faxed pertinent information. Patient prefers MWF early schedule. Patient needs Hep B and COVID results. Patient refused COVID. Patient to dc later today. Dr Pike agreeable to start dialysis [facility]. Trevon[facility] needs the hep B antigen result prior to dialysis. Plan to alert her in am as test takes 24hr. Patient to dc home. Walker obtained through [facility] they will deliver to home.
[2020-08-23 16:40] VITALS: BP 151/74
--- NOTE | 2020-08-23 16:40 | NUR ---
ASSUMED CARE OF PT AT SHIFT CHANGE. ASSESSMENTS CHARTED. MEDS GIVEN PER OCT. PT A&OX4, NO C/O PAIN. READY TO GO HOME. OUTPT DIALYSIS ARRANGED. DISCHARGE ORDERS AND INSTRUCTIONS COMPLETE. IV AND TELE DC'D. PT TAKEN VIA WHEELCHAIR TO ER ENTRANCE TO WAITING IN CAR.
[2020-08-24 15:09] LABS: HEPATITIS B SURFACE AG Negative (Negative)
--- NOTE | 2020-08-24 15:28 | NUR ---
PT DISCHARGED LATE YESTERDAY 08/23 TO HOME NEEDED HH AT DC FA[facility] SPOKE WITH ANNELIESE IN INTAKE SHE CAN ACCEPT FAXED DC ORDERS/SUMMARY RECEIVED CONFIRMATION.
--- NOTE | 2020-08-24 15:54 | NUR ---
RAJESH GUAN REQUESTED PATIENT'S TEST RESULT FOR HEPATITIS B. FAXED RESULT TO F:[phone].
== END 2020-08-23 17:28 | disposition home or self-care (01) | DRG 377 ==
LOC: ER 03:29 → EROBS 05:21 → ER 05:21 → EROBS 13:08 → ICU 13:08 → 2N 13:08 → ICU 15:28 → 2N 08-15 23:03
PROVIDERS: Anesthesiology; Emergency Medicine; Hospitalist; Internal Medicine; Internal Medicine Gastroenterology; Nurse Practitioner; Nurse Practitioner Family; ADMIT Hospitalist; ATTEND Hospitalist
PROC: 5A1D70Z Performance of Urinary Filtration, Intermittent, Less than 6 Hours Per Day (ICD-10-PCS; 2020-08-18)
PROC: 0DB78ZX Excision of Stomach, Pylorus, Via Natural or Artificial Opening Endoscopic, Diagnostic (ICD-10-PCS; principal; 2020-08-19)
PROC: 5A1D70Z Performance of Urinary Filtration, Intermittent, Less than 6 Hours Per Day (ICD-10-PCS; 2020-08-22)
DX: K29.71 Gastritis, unspecified, with bleeding (principal); E43 Unspecified severe protein-calorie malnutrition; N18.6 End stage renal disease; I13.2 Hypertensive heart and chronic kidney disease with heart failure and with stage 5 chronic kidney disease, or end stage renal disease; D68.8 Other specified coagulation defects; N17.9 Acute kidney failure, unspecified; I48.20 Chronic atrial fibrillation, unspecified; D62 Acute posthemorrhagic anemia; I69.354 Hemiplegia and hemiparesis following cerebral infarction affecting left non-dominant side; D68.9 Coagulation defect, unspecified; I48.92 Unspecified atrial flutter; E11.42 Type 2 diabetes mellitus with diabetic polyneuropathy; I48.0 Paroxysmal atrial fibrillation; K44.9 Diaphragmatic hernia without obstruction or gangrene; I50.9 Heart failure, unspecified; M10.9 Gout, unspecified; E11.22 Type 2 diabetes mellitus with diabetic chronic kidney disease; I25.10 Atherosclerotic heart disease of native coronary artery without angina pectoris; E78.5 Hyperlipidemia, unspecified; K21.9 Gastro-esophageal reflux disease without esophagitis; Z20.822 Contact with and (suspected) exposure to COVID-19; K31.89 Other diseases of stomach and duodenum; M19.90 Unspecified osteoarthritis, unspecified site; G89.29 Other chronic pain; Z79.899 Other long term (current) drug therapy; Z79.4 Long term (current) use of insulin; Z68.30 Body mass index [BMI] 30.0-30.9, adult
CPT/HCPCS: 10078; 10081; 32100; 62110; 62900; 70005

== ENCOUNTER → 2020-09-13 | Outpatient (CLI) | payer OTHER ==
[~2020-09-13] MED LIST changes: +ANTACID650 MG PO; +CALCITRIOL0.25 MCG PO; +CARVEDILOL12.5 MG PO; +DILTIAZEM ER90 M1 PO; +FUROSEMIDE 80 M80 M1 PO; +LEVEMIR FL100 UNIT/2 SUBQ; +METOPROLOL SUCC50 MG PO; +NORVASC5 MG PO; +NOVOLOG FL100 UNIT/M SUBQ; +PACERONE 200 M200 M1 PO; +RAMIPRIL2.5 MG PO; +WARFARIN SODIU7.5 MG PO; +ZAROXOLYN 5MG TA5 MG PO
== END ==
LOC: SJCVC 12:49
PROVIDERS: ATTEND Internal Medicine Cardiovascular Disease
DX: R94.31 Abnormal electrocardiogram [ECG] [EKG] (principal); I44.0 Atrioventricular block, first degree; I49.1 Atrial premature depolarization; I25.10 Atherosclerotic heart disease of native coronary artery without angina pectoris; E11.22 Type 2 diabetes mellitus with diabetic chronic kidney disease; I12.0 Hypertensive chronic kidney disease with stage 5 chronic kidney disease or end stage renal disease; N18.6 End stage renal disease; I48.0 Paroxysmal atrial fibrillation; Z79.4 Long term (current) use of insulin; Z79.899 Other long term (current) drug therapy; Z86.73 Personal history of transient ischemic attack (TIA), and cerebral infarction without residual deficits

== ENCOUNTER 2021-05-18 16:00 | Inpatient (IN) | payer OTHER ==
[~2021-05-18] VITALS: Ht 172.7 cm; Wt 95.8 kg
--- NOTE | ~2021-05-18 | O ---
[facility] [place] [address] OPERATIVE REPORT Name: SHARONSINDY Spenser Room #: 452-P ADM IN M.R.#: [id number] Admission: 05/18/21 Attend Phys: Philipp Baird MD Discharge: Date of : 59 Report #: [id number] THIS REPORT FOR: cc: Stan Ingram Brady DO Rizzi, Raymond M. DPM ~ DATE OF SERVICE: 05/22/2021 PREOPERATIVE DIAGNOSIS: Left second digit diabetic foot ulcer with gangrene distally. POSTOPERATIVE DIAGNOSIS: Left second digit diabetic foot ulcer with gangrene distally. PROCEDURE: Left partial second ray resection. ANESTHESIA: General with local block consisting of 15 mL of 0.5% ropivacaine. TOURNIQUET: None. DESCRIPTION OF PROCEDURE: The patient was transferred to the operating room and placed on table in supine position. The left foot was prepped and draped in the usual sterile manner. Attention to the left second digit where a racquet-type incision was made. This incision was carried down to bone, resecting off the second digit by dissection exposing the distal aspect of the second metatarsal. I took the very distal aspect of the second metatarsal decrease tension also to make sure that this wound heals quicker by getting more proximal incision line. We washed out thoroughly and taken deep tissue from the second digit and sent for aerobic, anaerobic and fungal. It was closed using 2-0 nylon in a simple suture and horizontal suture. The patient was dressed with Xeroform, fluffs, Kumar, and a Kerlix. The patient will be in a postop shoe and can walk for necessity activities. The patient will be followed up wound care kelly by the healing and physician group. Please call me if any concerns. [facility] [address] [address] OPERATIVE REPORT Name: SINDY HERRERA Room #: 452-P [facility] IN ..#: [id number] Admission: 05/18/21 Attend Phys: Philipp Baird MD Discharge: Date of : 59 Report #: [id number] The patient tolerated the procedure well and left the operating room with vital signs and vascular intact. By: 1249 [id number] Cooper Diamond DPM /jose
[2021-05-18 16:05] VITALS: BP 109/53
[2021-05-18 18:42] LABS: ABSOLUTE NEUTROPHILS 7.4 thou/uL (1.4-8.2); BASOPHILS 0.4 % (0.0-2.0); EOSINOPHILS 2.1 % (0.0-3.0); HEMATOCRIT 33.9 % (42.0-52.0); HEMOGLOBIN 11.1 gm/dL (14.0-18.0); LYMPHOCYTES 14.6 % (24.0-44.0); MCH 30.5 pg (26.0-34.0); MCHC 32.8 g/dL (28.0-37.0); MCV 92.9 fL (80.0-100.0); MONOCYTES 11.2 % (1.0-8.0); PLATELET COUNT 194 thou/uL (150-400); POLYS 71.7 % (36.0-66.0); RBC 3.64 mil/uL (4.50-6.00); RDW 16.5 % (10.5-14.5); WBC 10.3 thou/uL (4.0-11.0)
[2021-05-18 18:53] LABS: CALCIUM 8.3 mg/dL (8.5-10.1); CREATININE 9.5 mg/dL (0.7-1.3); POTASSIUM 4.3 mmol/L (3.5-5.1)
[2021-05-18 18:59] LABS: TOTAL BILIRUBIN 0.5 mg/dL (0.2-1.0); TOTAL PROTEIN 8.2 g/dL (6.4-8.2)
[2021-05-18] MEDS ORDERED: NEURONTIN300 MG PO (20:08)
[2021-05-18] MEDS ORDERED: LEVEMIR100 UNIT/2 SUBQ (20:10)
[2021-05-18] MEDS ORDERED: CARDIZEM60 MG PO (20:10)
[2021-05-18] MEDS ORDERED: NOVOLOG100 UNIT/1 SUBQ (20:11)
[2021-05-18] MEDS ORDERED: CARVEDILOL12.5 MG PO (20:12)
[2021-05-18] MEDS ORDERED: ASA81BEC PO (20:14)
[2021-05-18 20:23] VITALS: BP 98/65
--- NOTE | 2021-05-18 20:38 | NUR ---
Called to give report and was told they would call back in 5 min
[2021-05-18 21:07] VITALS: BP 122/48
[2021-05-18] MEDS ORDERED: XARELTO15 MG PO (22:17)
[2021-05-18] MEDS ORDERED: DILTIAZEM ER60 M1 PO (22:40)
[2021-05-19 04:32] LABS: CALCIUM 7.9 mg/dL (8.5-10.1); CREATININE 10.2 mg/dL (0.7-1.3); MCHC 33.3 g/dL (28.0-37.0); POTASSIUM 4.2 mmol/L (3.5-5.1); RBC 3.54 mil/uL (4.50-6.00); RDW 16.1 % (10.5-14.5); WBC 9.1 thou/uL (4.0-11.0)
--- NOTE | 2021-05-19 06:05 | NUR ---
RECEIVED CARE OF THIS PATIENT AT 2115 FROM ED VIA CART ACCOMPANIED BY ED PERSONEL. PATIENT ALERT AND ORIENTED X4. HAS WOUND ON 2ND TOE LEFT FOOT. PICTURES DONE, CULTURE DONE AND SENT. DENIES PAIN. SLEPT MOST OF NIGHT.
[2021-05-19 07:23] VITALS: BP 110/52
[2021-05-19 11:53] VITALS: BP 108/48
--- NOTE | 2021-05-19 13:36 | NUR ---
PT ADMITTED RELATED TO DIABETIC FOOT WOUND, WOUND INFECTION. CM REVIEWED CHART AND SPOKE WITH CARE TEAM. CM MET WITH PT AND SPOUSE AT BEDSIDE THIS DAY. PT APPEARED TO BE A&O X4. CM ROLE INTRODUCED. PT INDICATED HE RESIDES IN A HOUSE WITH HIS WITH 10 STEPS TO ENTER AND NO STEPS INSIDE. 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 PT GOES TO [facility] 5:15-9:30 CHAIR TIME. PT'S SPOUSE PROVIDES TRANSPORT. PT INDICATED HE HAD [facility] IN THE PAST AND THAT IF HH IS NEEDED UPON DC THEY WOULD USE THEM AGAIN. CARE TEAM INDICATED THAT ID, POD, AND WC ARE CONSULTED. PT IS ON IV VANC. CARE TEAM INDICATED THAT PT WOULD BE HERE OVER THE WEEKEND. CM FOLLOWING REGARDING DC PLANNING.
[2021-05-19 15:51] VITALS: BP 124/53
[2021-05-19 20:16] VITALS: BP 138/82
[2021-05-20 04:20] VITALS: BP 117/54
--- NOTE | 2021-05-20 05:02 | NUR ---
ASSUMED CARE OF PT AT SHIFT CHANGE. PT IS AOX4 AND LETS NEEDS BE KNOWN. FALL PRECAUTION INB PLACE. PT REPORTED SOME PAIN BUT DENIED NAUSEA OR SOA. DAILYSIS COMPLETED THIS SHIFT WITH 2L FLUID OFF. ABX TREATMENT CONTINUED. ASSESSMNT CHARTED. PT WAS ABLE TO GET COMFORTABLE AND SLEEP PART OF THE SHIFT. VSS AND NO S/S OF ACUTE DISTRESS. WILL CONTINUE TO MONITOR.
[2021-05-20 07:00] VITALS: BP 94/55
--- NOTE | 2021-05-20 10:45 | NUR ---
Assumed pt care this am vs stable, blood sugar monitored and medications given as per emar. Pt was upset this am since his family was coming all the way from [place] but the grandchidren who are youger than 17 y/o are not allowed to come in the hospital. Pt initally was planning to go AMA, explained the process and what it entails. Pt has decided to stay.
[2021-05-20 12:00] VITALS: BP 91/31
--- NOTE | 2021-05-20 15:10 | EKG ---
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: : 1955 Requested By: Philipp Baird Order Number: [id number] MD: Panchito Sandhu Measurements Intervals [place] Rate: 78 P: 50 LA: 204 QRS: 27 QRSD: 88 T: 17 QT: 448 QTc: 511 Interpretive Statements Sinus rhythm Probable anteroseptal infarct, recent Prolonged QT interval Compared to ECG 08/14/2020 03:32:47 Atrial flutter no longer present Electronically Signed On 05-20-2021 15:10:45 CDT by Panchito Sandhu [email or web address] <ELECTRONICALLY SIGNED> By: Panchito Sandhu MD, [facility] 05/20/21 1510 0 Panchito Sandhu MD, [facility] /EPI
[2021-05-20 16:00] VITALS: BP 118/47
[2021-05-20 19:53] VITALS: BP 121/5; BP 121/51
[2021-05-21 00:50] VITALS: BP 114/50
--- NOTE | 2021-05-21 03:38 | NUR ---
Pt A/OX4, VSS.Up with SBA. Denied pain on assessment. Dsg C/D/I on left foot. Dr Diamond called at HS and indicated he'll be doing surgery today on pt;pt updated and okay with it,informed he needs to be NPO after midnight. Pt has been NPO since midnight. Resting quietlya t this time w/oa ny distress noted,SR/BBB on telemetry.
[2021-05-21 05:00] VITALS: BP 103/51
[2021-05-21 07:50] VITALS: BP 109/60
[2021-05-21 11:38] VITALS: BP 110/52
[2021-05-21 15:40] VITALS: BP 129/44
--- NOTE | 2021-05-21 16:14 | NUR ---
A/O X 4. ROOM AIR. SR ON TELE. RIGHT AC IV SALINE LOCKED. RIGHT UPPER ARM FISTULA-POSITIVE FOR BRUIT AND TRILL. LEFT FOOT CLEANED AND REWRAPPED. BS 175 @ LUNCH 15 UNITS INSULIN GIVEN. WILL DO PATIENTS SURGERY TOMORROW. PATIENT WILL BE NPO AT MIDNIGHT. LEFT FOOT PAIN TYLENOL GIVEN.
[2021-05-21 19:29] VITALS: BP 115/62
[2021-05-22] VITALS (9 sets, daily range): BP systolic 116–157; BP diastolic 34–69
[2021-05-22 05:48] LABS: HEMATOCRIT 31.2 % (42.0-52.0); HEMOGLOBIN 10.3 gm/dL (14.0-18.0); MCH 30.7 pg (26.0-34.0); MCHC 33.1 g/dL (28.0-37.0); MCV 92.9 fL (80.0-100.0); RBC 3.36 mil/uL (4.50-6.00); RDW 16.7 % (10.5-14.5); WBC 8.2 thou/uL (4.0-11.0)
--- NOTE | 2021-05-22 06:07 | NUR ---
Pt A/OX4,VSS. Up ad mima in room. C/o pain to left foot,medicated per EMAR with relief reported. Dsg to foot changed at HS tolorated procedure well. Pgt supposed to have amputation of toe today,placed on NPO orders since midnight,pt aware of situation and agreeable with it. SR on telemetry. Resting quietly at this time,will continue to monitor pt.
[2021-05-22 06:09] LABS: CALCIUM 8.1 mg/dL (8.5-10.1); CREATININE 10.9 mg/dL (0.7-1.3); POTASSIUM 4.7 mmol/L (3.5-5.1)
--- NOTE | 2021-05-22 07:30 | HC ---
[facility] [place] [address] CONSULTATION Name: SINDY HERRERA Room #: 452-P ADM IN M.R.#: [id number] Admission: 05/18/21 Attend Phys: Philipp Baird MD Discharge: Date of : 59 Report #: [id number] THIS REPORT FOR: cc: Stan Ingram Brady DO Barry, Joseph W. MD ~ DATE OF SERVICE: 05/21/2021 INFECTIOUS DISEASE CONSULTATION ATTENDING PHYSICIAN: Dr. Baird REASON FOR EVALUATION: Deep infection involving the left second toe. HISTORY OF PRESENT ILLNESS: Chart reviewed. The patient examined. This is a 65-year-old gentleman with diabetes mellitus with significant sequelae. He has known vasculopathy, peripheral neuropathy, also end-stage renal disease, on dialysis, who states he has a longstanding ulcer that dates back several months involving his left second toe. He has had previous toe issues and partial amputation on the right. He has been evaluated. He was found to have polymicrobial growth on culture including Proteus and Enterococcus. He has been empirically started on combination therapy with vancomycin and Zosyn. He is then scheduled to undergo operative procedure today, ____ including an amputation of the second left toe. At this point, he is not significantly uncomfortable as he has really no feeling. He has not had systemic illness. No fevers, chills. Appetite has been diminished. No pulmonary or gastrointestinal related complaints. ALLERGIES: None known. CURRENT MEDICATIONS: Include Zosyn, insulin, vancomycin, gabapentin, rivaroxaban, diltiazem, carvedilol, p.r.n. analgesics, antiemetics. PAST MEDICAL HISTORY: As described above, diabetes mellitus with significant sequelae, vasculopathy, previous stroke. He has known coronary artery disease; peripheral vascular disease; history of atrial fibrillation; gout; hypertension; end-stage renal disease, on dialysis; reflux; arthritis; cardiomyopathy with congestive heart failure. SOCIAL HISTORY: Nonsmoker, no ethanol, no illicit drug use. Lives with ____. FAMILY HISTORY: Noncontributory. REVIEW OF SYSTEMS: Otherwise, unremarkable. PHYSICAL EXAMINATION: [address] [address] CONSULTATION Name: HERRERASINDY B Room #: 452-P [facility] IN [facility].#: [id number] Admission: 05/18/21 Attend Phys: Philipp Baird MD Discharge: Date of : 59 Report #: [id number] GENERAL: Appears chronically ill and undernourished. He is pleasant, cooperative. He is in mild distress. VITAL SIGNS: Temperature 97.6, pulse 72, respirations 18, blood pressure 109/60. SKIN: Warm, dry, no rashes. HEENT: Otherwise, unremarkable. NECK: Supple. LUNGS: Diminished breath sounds. HEART: Irregular. I do not appreciate any murmur. ABDOMEN: Nondistended, nontender. EXTREMITIES: He has a dressing in place over the left foot. GENITOURINARY: Deferred. RECTAL: Deferred. LABORATORY DATA: Hemoglobin A1c of 10.0. Cultures described above, many gram-positive cocci and gram-negative rods seen on Gram stain, mixed colton including many Proteus, moderate Enterococcus faecalis. Arterial Dopplers showed ____ in the right lower extremity below the knee suggests high-grade stenosis; left side, however, showed normal multiphasic flow. Cultures sterile thus far. CBC on the 8th, white count of 9.1, H and H 9.0 and 33.0, platelets of 175. Electrolytes: Sodium 137, potassium 4.2, chloride 96, bicarbonate 27, anion gap of 14, BUN and creatinine 53 and 10.2. Sed rate of 118. CRP of 185.3. Coronavirus testing was negative. Plain foot x-ray showed no bony changes. ASSESSMENT AND PLAN: Deep infection involving left toe apparently in setting of a chronic ulcer, likely polymicrobial etiology. We will continue combination therapy as prescribed. Await additional susceptibilities. Await findings at surgery as well. He is certainly at tenuous situation and risk for additional complications. We will monitor expectantly. <ELECTRONICALLY SIGNED> By: Saman Martin MD 05/22/21 0730 0807 [id number] Saman Martin MD /nt
--- NOTE | 2021-05-22 12:26 | NUR ---
ASSUMED PT CARE THIS AM. PT A&OX3, ABLE TO MAKE NEEDS KNOWN WITH CALL LIGHT. PATIENT REPORTING NO PAIN. PATIENT RECEIVED DIALYSIS THIS SHIFT, 2 LITERS TAKEN OFF PER DIALYSIS NURSE. PATIENT HAS DRESSING TO LEFT FOOT THAT IS DRY AND INTACT. PATIENT IS ON ROOM AIR. MEDICATIONS HELD DUE TO SURGERY THIS SHIFT. PATIENT TO GET AN ARTERIOGRAM AORTA WITH RUNOFF ON SATURDAY PER IR. FALL PRECAUTIONS ARE IN PLACE, CALL LIGHT WITHIN REACH. FAMILY AT BEDSIDE.
--- NOTE | 2021-05-22 12:40 | H ---
[facility] [place] [address] HISTORY AND PHYSICAL Name: SINDY HERRERA Room #: 452-P ADM IN M.R.#: [id number] Admission: 05/18/21 Attend Phys: Philipp Baird MD Discharge: Date of : 59 Report #: [id number] THIS REPORT FOR: cc: Stan Ingram Brady DO Rizzi, Raymond M. DPM ~ DATE OF SERVICE: 05/18/2021 INTRODUCTION: A 65-year-old white male diabetic with a left diabetic foot ulcer, second digit. The patient has been inhospital and he is currently on dialysis. He has multiple comorbidities. PAST MEDICAL HISTORY: Noted for diabetes, hypertension, CHF, CKD, history of seizures, and end-stage renal disease, on dialysis. MEDICATIONS: Xarelto, Cardizem, insulin, Coreg, aspirin, and Neurontin. ALLERGIES: No known drug allergies. PAST SURGICAL HISTORY: Noncontributory. FAMILY HISTORY: Noncontributory. PHYSICAL EXAMINATION: The patient was seen at bedside. Upper extremity exam has already been worked up by the hospitalist and ER physician. I have no changes. Lower extremity exam shows his left second digit has the pulp that is necrotic almost down to bone. Vascular status is compromised, weak pulses for dorsalis pedis and posterior tibial arteries. LABORATORY DATA: X-rays unremarkable. Lab work reviewed with glucose of 331. WBC of 10.3. ESR 118. ASSESSMENT: Diabetic foot ulcer, necrotic distal second digit, left foot. PLAN: Most likely need some type of surgical procedure, but at first I am going to get arterial Dopplers and get a vascular consult through Dr. Hadley. I will return and schedule the surgery and decide based on his healing ability. <ELECTRONICALLY SIGNED> By: Cooper Diamond DPM 05/22/21 1240 1837 11 Cooper Diamond DPM /nt
--- NOTE | 2021-05-22 16:25 | NUR ---
Case discussed with the care team. Pt had surgical resection on his toe today per Dr. Diamond. Angiogram anticipated on Sat. Pt continues on iv atb and MWF dialysis. Will follow.
[2021-05-23 00:24] VITALS: BP 113/63
--- NOTE | 2021-05-23 03:57 | NUR ---
PT CARE ASSUMED WITH PT IN BED WATCHING TV.PT IS A/O X4.PT IS UP WITH STANDBY ASSIST TO BSC.WOUND DRESSING WITH BLOOD FROM BLEEDING DURING THE DAY AND DRESSING REINFORCED.PT IS ACCUCHECK ACHS. A.V FISTULA ON ENID.WILL CONTINUE TO MONITOR PER POC
[2021-05-23 04:17] VITALS: BP 121/52
[2021-05-23 08:01] VITALS: BP 113/60
--- NOTE | 2021-05-23 08:40 | HC ---
[facility] [place] [address] CONSULTATION Name: HERRERASINDY B Room #: 452-P ADM IN M.R.#: [id number] Admission: 05/18/21 Attend Phys: Philipp Baird MD Discharge: Date of : 59 Report #: [id number] THIS REPORT FOR: cc: Stan Ingram Brady DO [place],Jethro Woodson MD ~ DATE OF SERVICE: 05/21/2021 WOUND CARE CONSULTATION NOTE REASON FOR CONSULTATION: End-stage renal disease, on hemodialysis in a patient with diabetes mellitus type 2 with peripheral neuropathy and diabetic wound of left second toe with cellulitis and gangrene of the left second toe. HISTORY OF PRESENT ILLNESS: The patient is a 65-year-old gentleman with end-stage renal disease, on hemodialysis. He has had a partial right middle toe amputation. He has end-stage renal disease on hemodialysis and diabetes mellitus type 2. He has atrial fibrillation, on Xarelto, and peripheral neuropathy. He is status post cerebrovascular accident with left hemiparesis and congestive heart failure. The patient was noted to have wounds of the left second toe. He has no pain because of neuropathy. He is noted to have discoloration and cellulitis of the left second toe. He has been evaluated by Dr. Diamond and Dr. Hadley. The patient has evidence of peripheral vascular disease but adequate flow to the left foot. Due to gangrene of the left second toe, Dr. Diamond plans to do amputation tomorrow on 05/22/2021. PAST MEDICAL HISTORY: End-stage renal disease, on hemodialysis; diabetes mellitus type 2; hypertension; atrial fibrillation, on Xarelto; peripheral neuropathy; status post cerebrovascular accident with left hemiparesis; congestive heart failure. ALLERGIES: No known drug allergies. LABORATORY DATA: Albumin 3.0. Mild protein-calorie malnutrition. White blood count 10.3. X-ray of the left foot shows no osseous abnormalities. PHYSICAL EXAMINATION: Focused physical examination shows that the left toe is discolored and clinically gangrenous with small wound, minimal drainage. Dry dressings with Kerlix wrap was placed. IMPRESSION: 1. End-stage renal disease, on hemodialysis. 2. Atrial fibrillation, on Xarelto. 3. Status post cerebrovascular accident with left hemiparesis. 4. Congestive heart failure. 5. Diabetes mellitus type 2 with peripheral neuropathy. [address] [address] CONSULTATION Name: SINDY HERRERA Room #: 452-P [facility] IN ..#: [id number] Admission: 05/18/21 Attend Phys: Philipp Baird MD Discharge: Date of : 59 Report #: [id number] 6. Diabetes mellitus type 2 with cellulitis and gangrene of the left second toe. PLAN: Dr. Diamond plans interventional surgery on 05/22/2021 for toe amputation. Lower extremity arterial Doppler indicates arterial flow for healing of the wound. Wound care team will follow. <ELECTRONICALLY SIGNED> By: Jethro Crandall MD 05/23/21 0840 [phone] Jethro Crandall MD /nt
--- NOTE | 2021-05-23 14:09 | NUR ---
ASSUMED PT CARE THIS AM. PT A&OX4, ABLE TO MAKE ALL NEEDS KNOWN. PATIENT REMAINS CONTINENT, AMBULATES WITH ASSIST TO THE BATHROOM. PATIENT REPORTING NO PAIN IN FOOT, DID COMPLAIN OF SOME PAIN TO BILATERAL HANDS, TYLENOL GIVEN. PATIENT HAS A FISTULA TO THE LEFT UPPER ARM. PATIENT REMAINS ON ROOM AIR. IV'S REMAIN PATENT. FALL PRECAUTIONS ARE IN PLACE, CALL LIGHT WITHIN REACH.
--- NOTE | 2021-05-23 14:29 | NUR ---
PT HAD 2ND RAY AMPUTATED YESTERDAY. PT CONTINUES ON IV VANC AND ZOSYN. PT TO HAVE ANGIOGRAM TOMORROW. CM FOLLOWING REGARDING DC PLANNING.
[2021-05-23 16:44] VITALS: BP 137/81
[2021-05-23 19:29] VITALS: BP 130/62
--- NOTE | 2021-05-24 02:32 | NUR ---
PT CARE ASSUMED WITH PT IN BED WATCHING TV.PT IS A/O X4.PT IS UP WITH WALKER TO THE BATHROOM.PT C/O PAIN AND PAIN MANAGED WITH TYLENOL PER PT REQUEST.PT IS ACCUCHECK ACHS.IV ACCESS ON RT AC AND RH SL.PT HAS AN AV FISTULA ON ENID.PT NPO FROM MIDNIGHT FOR ANGIGRAM AORTA TODAY.WILL CONTINUE TO MONITOR PER POC
[2021-05-24 04:09] VITALS: BP 119/74
[2021-05-24 07:47] VITALS: BP 133/62
[2021-05-24 10:45] VITALS: BP 132/70
--- NOTE | 2021-05-24 10:57 | NUR ---
PT ARRIVED ON FLOOR AT APPROXIMATELY 10:30.
--- NOTE | 2021-05-24 11:59 | NUR ---
PT WENT FOR ANGIOGRAM THIS DAY. PT WAS TRANSFERED TO CCU RM 213 POST PROCEDURE. THERAPY ORDERED. PT CONTINUES ON IV VANC AND ZOSYN. PT AND SPOUSE INDICATED DESIRE FOR [facility] UPON DC IS APPROPRIATE. CM FOLLOWING REGARDING DC PLANNING.
[2021-05-24 15:30] VITALS: BP 138/76
--- NOTE | 2021-05-24 16:34 | NUR ---
PT ARRIVED TO THE FLOOR A LITTLE BEFORE 11AM. PT HAD AN ANGIOGRAM THAT WENT THROUGH THE RIGHT GROIN. GROIN SITE NO REDNESS, HEMATOMA, OR BLEEDING. PT ALSO HAD DIALYSIS THIS AFTERNOON WITH 2L REMOVED. PT DENIES PAIN, NAUSEA, OR SHORT OF AIR.
--- NOTE | 2021-05-24 18:06 | PATH ---
[facility] [address] [place] [address] PATHOLOGY RPT PROCEDURE Name: SHARONSINDY B Room #: 213-P ADM IN M.R.#: [id number] Admission: 05/18/21 Date of : 59 Discharge: Report #: [id number] Path Case #: [id number] [facility] Accession Number: [id number] . 01 Material submitted: . toe - LEFT SECOND TOE. Modifiers: left, second . 01 Clinical history: . AMPUTATION OF TOES NECROTIC LEFT SECOND TOE DIABETIC FOOT WOUND, WOUND INFECTION . 02 Diagnosis: "Left second toe" amputation: - Acute osteomyelitis with osteonecrosis. - Resection margin viable. (SCA:pit; 05/24/2021) QTP 05/24/2021 1345 Local . 02 Electronically signed: . Dustin Hardy DO, Pathologist NPI- [id number] . 01 Gross description: . The specimen is received in formalin, labeled "Sindy Cerrato, left second toe". Received is an amputated digit measuring 5.3 x 2.6 x 2.2 cm in greatest mentions. The bone margin is smooth and concave in appearance, consistent with disarticulation, and appears grossly unremarkable. The bone and soft tissue margins are inked black. The nail is absent. The distal aspect of the specimen displays an ill-defined, irregular in contour and brown-black lesion measuring 3.8 x 3.8 cm, which is 0.9 cm from the closest skin margin. Underlying bone is identified through a circular defect within the lesion. A full-thickness longitudinal cross-section is submitted from proximal to distal aspects in cassettes A1 through A3, following decalcification. (CAA; 05/23/2021) QAC/QAC 05/24/2021 1430 Local . 02 Pathologist provided ICD-10: M86.172, M87.878 . 02 CPT . 789458, [id number] Specimen Comment: A courtesy copy of this report has been sent to [phone] Specimen Comment: [phone], Specimen Comment: Report sent to , DR FISCHER / DR TORRES [address] [address] PATHOLOGY RPT PROCEDURE Name: SINDY CERRATO Room #: 213-P [facility] IN M.R.#: [id number] Admission: 05/18/21 Date of : 59 Discharge: Report #: [id number] Path Case #: [id number] Performed at: 01 [facility] [address] [id number] MD Michael White MD Phone: [phone] Performed at: [facility] [address] [id number] MD Lam Mcknight MD Phone: [phone]
[2021-05-24 20:15] VITALS: BP 120/55
[2021-05-25] VITALS: BP 100/64
[2021-05-25 04:45] VITALS: BP 107/41
[2021-05-25 08:00] VITALS: BP 105/46
[2021-05-25] MEDS ORDERED: CLOPIDOGREL75 MG PO ×2 (09:44→10:53)
[2021-05-25] MEDS ORDERED: VANCOMYCIN500 MG/VIA IV (10:53)
[2021-05-25] MEDS ORDERED: ZOSYN 3/0.373.375 G3 IV (10:53)
[2021-05-25] MEDS ORDERED: CARDIZEM30 MG PO (10:56)
[2021-05-25 11:12] VITALS: BP 107/41
--- NOTE | 2021-05-25 12:31 | NUR ---
PT DISCHARGED TO HOME WITH HOME HEALTH. EXPLAINED DISCHARGE INSTRUCTIONS TO PT AND HE VERBALIZED UNDERSTANDING. HIGH LIGHTED FOLLOW UP APPOINTMENTS AND INFORMED PT AND SPOUSE OF ALL THE FOLLOW UP APPOINTMENTS. MOVED PT FROM CCU TO CAR VIA WHEELCHAIR AND ASSISTED PT INTO CAR WITHOUT INCIDENT.
--- NOTE | 2021-05-25 16:03 | NUR ---
Patient dc home with HH. Patient rec walker for home as requested by PT for 2 wheeled walker. [facility] obtained orders. Faxed orders to dialysis clinic [facility]. sp with survey manager at [facility]. Dr Martin rounded after patient has left. He wrote a prescription for oral antibiotic. Faxed to pharmacy listed in chart. Gave copy to Krystal chino with [facility] to give to HH Rn. Sp with dialysis clinic as orders noted for zosyn and vanco to be given at PAI clinic. Dr Martin wants only vanco given. Updated clinic and Rn present. Crossed off zosyn in faxed orders to dialysis clinic. No further needs.
--- NOTE | 2021-05-26 11:16 | NUR ---
Script for po augmentin faxed to the pt's [facility] this morning. [facility] faxed a copy as well. Estella confirmed pt is getting the iv vanco during his treatment and they are aware that the iv zosyn was switched to po augmentin. Message left for the pt's advising of above and offering to fill/vouch po atb script at our outpt pharmacy if desired. Cm cell number left with the message.
== END 2021-05-25 12:34 | disposition home health service (06) | DRG 270 ==
LOC: ER 16:00 → 2N 19:46 → 4W 19:46 → EROBS 19:46 → 4W 21:07 → 2N 05-24 10:38
PROVIDERS: Internal Medicine; Nurse Practitioner Family; Physician Assistant; ADMIT Hospitalist; ATTEND Hospitalist
PROC: 0Y6S0Z0 Detachment at Left 2nd Toe, Complete, Open Approach (ICD-10-PCS; principal; 2021-05-22)
PROC: B41D1ZZ Fluoroscopy of Aorta and Bilateral Lower Extremity Arteries using Low Osmolar Contrast (ICD-10-PCS; 2021-05-24)
PROC: B4181ZZ Fluoroscopy of Bilateral Renal Arteries using Low Osmolar Contrast (ICD-10-PCS; 2021-05-24)
PROC: 047 Lower Arteries, Dilation (ICD-10-PCS; 2021-05-24)
PROC: 04CS3ZZ Extirpation of Matter from Left Posterior Tibial Artery, Percutaneous Approach (ICD-10-PCS; 2021-05-24)
PROC: 5A1D70Z Performance of Urinary Filtration, Intermittent, Less than 6 Hours Per Day (ICD-10-PCS; 2021-05-24)
DX: E11.52 Type 2 diabetes mellitus with diabetic peripheral angiopathy with gangrene (principal); N18.6 End stage renal disease; I96 Gangrene, not elsewhere classified; I13.2 Hypertensive heart and chronic kidney disease with heart failure and with stage 5 chronic kidney disease, or end stage renal disease; E44.1 Mild protein-calorie malnutrition; N17.9 Acute kidney failure, unspecified; I42.9 Cardiomyopathy, unspecified; M00.9 Pyogenic arthritis, unspecified; I69.354 Hemiplegia and hemiparesis following cerebral infarction affecting left non-dominant side; L97.523 Non-pressure chronic ulcer of other part of left foot with necrosis of muscle; L03.032 Cellulitis of left toe; I48.91 Unspecified atrial fibrillation; I50.9 Heart failure, unspecified; E11.319 Type 2 diabetes mellitus with unspecified diabetic retinopathy without macular edema; E11.42 Type 2 diabetes mellitus with diabetic polyneuropathy; E11.621 Type 2 diabetes mellitus with foot ulcer; Z20.822 Contact with and (suspected) exposure to COVID-19; M10.9 Gout, unspecified; I25.10 Atherosclerotic heart disease of native coronary artery without angina pectoris; E78.5 Hyperlipidemia, unspecified; K21.9 Gastro-esophageal reflux disease without esophagitis; M19.90 Unspecified osteoarthritis, unspecified site; G89.29 Other chronic pain; S91.302A Unspecified open wound, left foot, initial encounter; E11.22 Type 2 diabetes mellitus with diabetic chronic kidney disease; R53.81 Other malaise; Z99.2 Dependence on renal dialysis; Z83.3 Family history of diabetes mellitus; Z82.49 Family history of ischemic heart disease and other diseases of the circulatory system; Z28.21 Immunization not carried out because of patient refusal
CPT/HCPCS: 10045; 10081; 32100; 50010; 50101; 50386; 50951; 56525; 57091; 62110; 62900; 70005

== ENCOUNTER 2021-07-10 10:15 | Inpatient (IN) | payer OTHER ==
[~2021-07-10] VITALS: Ht 172.7 cm; Wt 96.2 kg
[~2021-07-10 10:15] MED LIST changes: +ASA81BEC PO; +CARDIZEM30 MG PO; +CARDIZEM60 MG PO; +DILTIAZEM ER60 M1 PO; +LEVEMIR100 UNIT/2 SUBQ; +NEURONTIN300 MG PO; +VANCOMYCIN500 MG/VIA IV; +XARELTO15 MG PO; +ZOSYN 3/0.373.375 G3 IV
[2021-07-10 10:24] VITALS: BP 136/59
--- NOTE | 2021-07-10 12:37 | NUR ---
AFTER X2 FAILED ATTEMPTS TO START IV, LAB CALLED TO COME COLLECT SPECIMENS
--- NOTE | 2021-07-10 13:23 | NUR ---
LAB CAME DOWN AND WAS ABLE TO DRAW X1 SET OF BC AND X1 GOLD TOP. US NOW AT BEDSIDE
[2021-07-10 15:00] LABS: ABSOLUTE NEUTROPHILS 5.4 thou/uL (1.4-8.2); BASOPHILS 0.8 % (0.0-2.0); EOSINOPHILS 4.6 % (0.0-3.0); HEMOGLOBIN 10.4 gm/dL (14.0-18.0); LYMPHOCYTES 15.5 % (24.0-44.0); MCH 29.5 pg (26.0-34.0); MCHC 32.5 g/dL (28.0-37.0); MCV 90.7 fL (80.0-100.0); MONOCYTES 13.2 % (1.0-8.0); PLATELET COUNT 203 thou/uL (150-400); POLYS 65.9 % (36.0-66.0); RBC 3.53 mil/uL (4.50-6.00); RDW 16.9 % (10.5-14.5); WBC 8.2 thou/uL (4.0-11.0)
[2021-07-10 15:12] LABS: CALCIUM 8.5 mg/dL (8.5-10.1); CREATININE 8.3 mg/dL (0.7-1.3); POTASSIUM 3.8 mmol/L (3.5-5.1)
[2021-07-10 15:22] LABS: ALBUMIN 3.1 g/dL (3.4-5.0); MAGNESIUM 2.3 mg/dL (1.8-2.4); TOTAL BILIRUBIN 0.5 mg/dL (0.2-1.0); TOTAL PROTEIN 8.5 g/dL (6.4-8.2)
[2021-07-10] MEDS ORDERED: NEURONTIN 300M300 M2 PO (17:55)
[2021-07-10 22:10] VITALS: BP 129/49
[2021-07-11 00:17] VITALS: BP 102/44
--- NOTE | 2021-07-11 04:36 | NUR ---
PT ADMITTED TO ROOM 458 SHORTLY AFTER 2199 ON 07.10.21. PT A&O X4, UNSTEADY ON FEET. VSS. WILL CONTINUE TO MONITOR PER ORDER.
[2021-07-11 05:56] LABS: ABSOLUTE NEUTROPHILS 4.7 thou/uL (1.4-8.2); BASOPHILS 0.6 % (0.0-2.0); EOSINOPHILS 5.2 % (0.0-3.0); HEMATOCRIT 30.2 % (42.0-52.0); HEMOGLOBIN 9.9 gm/dL (14.0-18.0); LYMPHOCYTES 19.4 % (24.0-44.0); MCH 29.8 pg (26.0-34.0); MCHC 32.8 g/dL (28.0-37.0); MCV 90.7 fL (80.0-100.0); MONOCYTES 14.9 % (1.0-8.0); PLATELET COUNT 203 thou/uL (150-400); POLYS 59.9 % (36.0-66.0); RBC 3.33 mil/uL (4.50-6.00); RDW 16.8 % (10.5-14.5); WBC 7.8 thou/uL (4.0-11.0)
[2021-07-11 06:10] LABS: APTT 27.6 Seconds (24.5-32.8); INR 1.06; PROTIME 11.5 Seconds (10.5-12.1)
[2021-07-11 06:18] LABS: ALBUMIN 2.7 g/dL (3.4-5.0); CALCIUM 8.1 mg/dL (8.5-10.1); MAGNESIUM 2.5 mg/dL (1.8-2.4); PHOSPHORUS 5.7 mg/dL (2.5-4.9); POTASSIUM 3.9 mmol/L (3.5-5.1)
[2021-07-11 06:27] LABS: CREATININE 9.6 mg/dL (0.7-1.3)
--- NOTE | 2021-07-11 07:16 | EKG ---
[address] [place] [address] ELECTROCARDIOGRAM REPORT Name: SINDY HERRERA Room #: 458-P ADM IN .R.#: [id number] Admission: 07/10/21 Attend Phys: Philipp Baird MD Discharge: Date of : 59 Report #: [id number] [facility] ED Test Date: 2021-07-10 Test Time: 10:36:46 Pat Name: SINDY HERRERA Department: Room: [facility] Gender: M Education Department Chair: : 1955 Requested By: Tanja Teran Order Number: [id number] MD: Ishan Wilson Measurements Intervals Widen Rate: 94 P: 52 NE: 212 QRS: 9 QRSD: 86 T: 27 QT: 389 QTc: 487 Interpretive Statements Sinus rhythm Borderline prolonged NE interval Probable left atrial enlargement Probable anteroseptal infarct, recent Lateral leads are also involved Baseline wander in lead(s) V2 Compared to ECG 05/20/2021 08:41:53 Prolonged QT interval no longer present Myocardial infarct finding still present Electronically Signed On 07-11-2021 7:15:48 PLANING MACHINE OPERATOR by Ishan Wilson [email or web address] <ELECTRONICALLY SIGNED> By: Ishan Wilson MD, FACC 07/11/21 0715 1036 1036 Ishan Wilson MD, [facility] /EPI
[2021-07-11 07:32] VITALS: BP 100/41
--- NOTE | 2021-07-11 09:46 | NUR ---
Assess due to pt with diabetic foot ulcer/toe infection. Recent 2nd toe amputation, nonhealing and now 3rd toe necrosis. Hx DM, CVA, ESRD/dialysis. Upon visit, pt did not know why he was NPO status-followed up with RN, may need further surgical intervention. Appetite usually fair to good. Initially lost about 20 lb over past year, but has been holding steady around 204-211 lb past several months now. Liked Nepro drink last admit and would like to have again once diet readvanced. provided pt alternative menu for selections. Low nutrition risk
--- NOTE | 2021-07-11 14:56 | NUR ---
PT RESTING COMFORTABLY. PLAN FOR IR TO DO ANGIOGRAM THIS SATURDAY. PODIATRY WILL HOLD OFF ON SURGERY UNTIL AFTER ANGIOGRAM. PT AFEBRILE, ANEURIC, NO BM, GOOD APPETITE. PLAN FOR HD TOMORROW. PT AND HAVE BEEN THOUROUGHLY UPDATED AND EDUCATED ON PT CONDITION AND POC. PT SLOWLY PROGRESSING TOWARDS POC.
[2021-07-11 15:39] VITALS: BP 116/56
[2021-07-11 16:18] VITALS: BP 126/69
[2021-07-11 19:33] VITALS: BP 120/54
--- NOTE | 2021-07-12 02:40 | NUR ---
ASSESSMENT DOCUMENTED.PT BEEN RESTING IN NO ACUTE DISTRESS.VSS.SR W/1DEG AVB ON MONITOR.C/O PAIN TO LEFT FOOT PAIN MED GIVEN W/RELIEF.PT FISTULA TO ENID WITH THRILL AND BRUIL.PT TO HAVE DIALYSIS TODAY WELL ANGIOGRAM BY IR.NO CONCERNS VOICED.
[2021-07-12 05:59] VITALS: BP 115/47
--- NOTE | 2021-07-12 09:47 | NUR ---
PT ADMITTED RELATED TO L FOOT DIABETIC ULCE WITH NECROSIS. CM REVIEWED CHART AND SPOKE WITH CARE TEAM. CM MET WITH PT AT BEDSIDE YESTERDAY. PT APPEARED TO BE A&O X4. CM ROLE INTRODUCED. PT INDICATED HE RESIDED IN A HOUSE WITH HIS WITH 10 STEPS TO ENTER AND ALL NEEDS ON ONE LEVEL INSIDE. PT INDICATED HE HAD USED A FWW TO ASSIST WITH MOBILITY ROLL TENSION TESTER. PT HAD BEEN INDPENDENET WITH [facility]LS ROLL TENSION TESTER. PT GOES TO OP HD AT [facility] MWF 6:15-9. PT'S SPOUSE TRANSPORTS. PT HAD BEEN ON SERVICE WITH [facility] ROLL TENSION TESTER. PT INDICATED HE PLANS TO RETURN HOME ONCE MEDICALLY STABLE AND WISHED TO RESUME SERVICES WITH [facility] HH. POSSIBLE 3RD TOE AMP/ WC AND ID CONSLTED. CM FOLLOWING REGARDING DC PLANNING.
--- NOTE | 2021-07-12 12:04 | HC ---
[facility] [place] [address] CONSULTATION Name: SINDY HERRERA Room #: 458-P ADM IN M.R.#: [id number] Admission: 07/10/21 Attend Phys: Philipp Baird MD Discharge: Date of : 59 Report #: [id number] THIS REPORT FOR: cc: Stan Ingram Brady DO Barry, Joseph W. MD ~ DATE OF SERVICE: 07/11/2021 INFECTIOUS DISEASE CONSULTATION ATTENDING PHYSICIAN: Dr. Philipp Baird REASON FOR EVALUATION: Progressive weakness with known history of diabetic foot ulcer requiring toe amputation in May this year, felt to have ongoing vascular issues. HISTORY OF PRESENT ILLNESS: Chart reviewed. The patient examined. This is a 66-year-old gentleman with diabetes mellitus with severe sequelae, widespread vasculopathy, end-stage renal disease; on dialysis, diabetic foot wounds, previous toe amputation, who was admitted with progressive weakness over the last 5-7 days. It is not clear that he had fevers. He notes poor p.o. intake. It is difficult to ascertain his weight loss, but feels he has had some. He was evaluated for possible acute infectious process. Chest x-ray was otherwise unremarkable. Plain film of the foot showed no acute findings with the second toe amputation. Arterial Doppler did raise questions on zppl-sd-tctqchan stenosis on the left. Creatinine was 8.3, consistent with his end-stage renal disease. Lactic acid 1.5. Coronavirus testing was negative. Blood cultures collected at time of admission are negative thus far. He has been evaluated by interventional radiologist, pending Podiatry evaluation. He was given empiric treatment with vancomycin and Zosyn adjusted for his renal failure. ALLERGIES: None known. CURRENT MEDICATIONS: Include pantoprazole, diltiazem, carvedilol, gabapentin, atorvastatin, vancomycin and Zosyn. PAST MEDICAL HISTORY: As described above, diabetes mellitus complicated by diffuse vasculopathy, has known cerebrovascular disease with stroke, left-sided weakness. Also has known peripheral vascular disease, end-stage renal disease, on hemodialysis. Hypertension, hyperlipidemia, peripheral neuropathy. SOCIAL HISTORY: Nonsmoker, no ethanol, no illicit drug use. FAMILY HISTORY: Noncontributory. REVIEW OF SYSTEMS: Otherwise, unremarkable. [address] [address] CONSULTATION Name: SINDY HERRERA Room #: 458-P [facility] IN [facility]#: [id number] Admission: 07/10/21 Attend Phys: Philipp Baird MD Discharge: Date of : 59 Report #: [id number] PHYSICAL EXAMINATION: GENERAL: He is alert, cooperative, appears chronically ill, undernourished. He is generally lucid, oqdj-ew-ggeyuzni distress. VITAL SIGNS: Temperature 98.1, pulse 75, respirations 16, blood pressure 100/41. SKIN: Warm, no rashes. HEENT: Normocephalic. Extraocular muscles intact. NECK: Supple. LUNGS: Diminished breath sounds. Few scattered crackles at the bases. HEART: Regular with some ectopy, soft systolic murmur. ABDOMEN: Distended, somewhat firm, nontender. EXTREMITIES: No cyanosis. Left foot is warm to touch with diminished pulses. The amputation site appears to be fairly well healed. There is not significant amount of inflammatory changes noted subcutaneously. GENITOURINARY AND RECTAL: Deferred. LABORATORY DATA: Blood cultures described above was negative thus far. Most recent electrolytes: Sodium 135, potassium 3.9, chloride 94, bicarbonate 27, anion gap of 14, BUN and creatinine 49 and 9.6, glucose of 191. Albumin of 2.7. CBC: White count of 7.8, H and H 9.9 and ____, platelets of 203, with a mildly elevated eosinophil count, roughly 400. Coronavirus testing was negative. Lactic acid 1.5. ProBNP of 2431. Liver function tests: Total protein of 85, albumin of 3.1. ASSESSMENT AND PLAN: Left lower extremity limb compromise. I am concerned about deep seated infection, recent second toe amputation. ____ we will continue empiric therapy evaluation undertaken. At this point, I do not think there are any additional sites to culture. We will await and see if there is any intervention that would improve his perfusion. Await surgery as well. I do not see any active focus of pyogenic infection at this point. We will monitor expectantly, certainly at risk for additional complications. Add incentive spirometry. Continue supportive care. <ELECTRONICALLY SIGNED> By: Saman Martin MD 07/12/21 1204 1019 1322 Saman Martin MD /nt
--- NOTE | 2021-07-12 17:20 | HC ---
[facility] [place] [address] CONSULTATION Name: SINDY HERRERA Spenser Room #: 458-P ADM IN M.R.#: [id number] Admission: 07/10/21 Attend Phys: Philipp Baird MD Discharge: Date of : 59 Report #: [id number] THIS REPORT FOR: cc: Stan Ingram, Stan Perez,Christian Cao MD ~ DATE OF SERVICE: 07/12/2021 CHIEF COMPLAINT: Left third toe necrosis. HISTORY OF PRESENT ILLNESS: This is a 66-year-old male patient with whom we are familiar with from previous hospitalization during which he underwent an amputation of his left second toe. He has had slow healing and has developed some necrosis of the tip of the third toe. He denies any pain with this. He has been seen by Dr. Diamond and there is consideration for possible surgical intervention. PAST MEDICAL HISTORY: Positive for cerebrovascular accident with residual left-sided weakness, prior diabetic foot ulceration, end-stage renal disease, on hemodialysis, type 2 diabetes mellitus, hypertension, hyperlipidemia, atrial fibrillation. SOCIAL HISTORY: Negative for alcohol or tobacco use. FAMILY HISTORY: Noncontributory. MEDICATIONS: Include Xarelto, Levemir, NovoLog, Coreg, Neurontin. ALLERGIES: No known drug allergies. REVIEW OF SYSTEMS: CONSTITUTIONAL: Denies fever, chills, weight loss. NEUROLOGICAL: The patient has residual left sided weakness. Denies any new weakness, numbness, tingling. EYES: The patient denies visual changes, redness or drainage. ENT: The patient denies earache, nasal drainage, sore throat. CARDIOVASCULAR: The patient denies chest pain, palpitations, diaphoresis. PULMONARY: Denies cough, shortness of breath GASTROINTESTINAL: Denies nausea, vomiting, diarrhea or abdominal pain. ORTHOPEDIC: The patient has ulcerations to the toes as detailed above. Others systems in a 14-point review of systems are negative. PHYSICAL EXAMINATION: VITAL SIGNS: The patient's vital signs at this time include temperature 36.7, pulse 70, respiration 19, blood pressure 116/56. GENERAL: This is a chronically ill-appearing male patient who appears in [address] [address] CONSULTATION Name: SINDY HERRERA Room #: 458-P [facility] IN ..#: [id number] Admission: 07/10/21 Attend Phys: Philipp Baird MD Discharge: Date of : 59 Report #: [id number] distress. HEENT: Head normocephalic. Nose and throat are clear. NECK: Supple. LUNGS: Clear. ABDOMEN: Soft, bowel sounds present. EXTREMITIES: Lower extremities demonstrate some dry gangrene at the tip of the third toe on the left foot. The wound from prior surgery has a moderate amount of slough and a little bit of odor. Some granulation tissue is noted. No exposed bone is noted at this time. NEUROLOGIC: The patient is alert and oriented, appropriate. Left-sided weakness noted. LABORATORY DATA: Sodium 135, potassium 3.9, chloride 94, CO2 27, BUN 49, creatinine 9.6. White blood cell count 7.8 with a hemoglobin of 9.9. CLINICAL IMPRESSION: 1. Dry gangrenous change of the left third toe. 2. Surgical wound to the left foot following second toe amputation. 3. End-stage renal disease requiring hemodialysis. 4. History of diabetes mellitus type 2. 5. History of cerebrovascular accident. 6. Moderate protein-calorie malnutrition, albumin 2.7. RECOMMENDATIONS: At this point in time, recommend quarter strength Dakin's moist gauze packing to the second toe amputations on the left foot. Betadine paint to the tip of the third toe. We will await Interventional Radiology and Vascular evaluation prior to considering any surgical intervention. I appreciate Dr. Diamond's input as well. I appreciate being asked to see him in consultation. <ELECTRONICALLY SIGNED> By: Christian Jin MD 07/12/21 1720 1045 1115 Christian Jin MD /nt
[2021-07-12 20:12] VITALS: BP 112/45
--- NOTE | 2021-07-13 03:38 | NUR ---
ASSESSMENT COMPLETED DOCUMENTED.PT BEEN RESTING IN NO ACUTE DISTRESS.A/OX4.VSS.SR/1DEG AVB ON MONITOR.PAIN MEDS GIVEN FOR C/O LLE PAIN WITH SOME RELIEF.NPO AFTER MIDNIGHT FOR ANGIOGRAM TODAY.NO CONCERNS VOICED.
[2021-07-13 04:28] VITALS: BP 122/55
[2021-07-13 08:07] VITALS: BP 115/50
--- NOTE | 2021-07-13 13:35 | NUR ---
PT ASSESSED AT START OF SHIFT. NPO FOR ARTERIOGRAM. NO INSULIN GIVEN PT NPO. IV ZOSYN GIVEN THIS AM. NO C/O PAIN. SR ON TELE. PT LEAVING FOR IR AT THIS TIME PER BED FOR ARTERIOGRAM. ALL BELONGINGS SENT W/ PT AND HE WILL GO TO ROOM 218 AFTER PROCEDURE.
--- NOTE | 2021-07-13 16:02 | NUR ---
PT GOING FOR ANGIOGRAM WITH POSSIBLE INTERVENTION THIS DAY. CARE TEAM INDICATED THAT PT IS TO TRANSFER TO CCU POST PROCEDURE. CM FOLLOWING INDICATED WITH DC PLANNING.
--- NOTE | 2021-07-13 18:19 | NUR ---
PATIENT ARRIVED TO UNIT AT APPX 1615 FROM PRODUCTION CONTROL CLERK. VS CYCLING THROUGH. PATIENT ABLE TO EAT DINNER, PLACED BACK ON RENAL DIET. ACHS COMPLETED AND INSULIN GIVEN PER ORDER. GROIN SITE REMAINS CDI WITH NO SIGN OF HEMATOMA OR BLOOD. HEMASTASIS OBTAINED AT 1600, BEDREST FOR 4 HOURS, UNTIL 1999. PAIN TO L LEG, HYDROCODONE GIVEN PER REQUEST. PATIENT TO DC ONCE MEDICALLY STABLE.
[2021-07-13 20:00] VITALS: BP 146/51
[2021-07-13 20:39] VITALS: BP 146/51
[2021-07-14 05:57] VITALS: BP 134/52
[2021-07-14 08:12] VITALS: BP 105/93
[2021-07-14 11:32] VITALS: BP 144/76
[2021-07-14] MEDS ORDERED: HYDROCODON-ACE1 EAC7 PO (14:20)
--- NOTE | 2021-07-14 15:03 | NUR ---
Patient to dc home with HH once stable. Rec [facility] prior to admit. If patient dc over weekend call [facility] [phone] alert of discharge and fax orders to [phone]. [facility] following
[2021-07-14] MEDS ORDERED: PROTONIX 20 MG20 M1 PO (15:41)
[2021-07-14] MEDS ORDERED: AUGMENTIN 500-1 EACH PO (15:41)
[2021-07-14 15:42] VITALS: BP 120/51
[2021-07-14 16:10] VITALS: BP 120/51
--- NOTE | 2021-07-14 16:33 | NUR ---
HH orders faxed and confirmed with [facility] HH including wound care instructions. [facility] notified of dc home and flow sheets and dc orders faxed to them as well.
== END 2021-07-14 17:43 | disposition home health service (06) | DRG 252 ==
LOC: ER 10:15 → EROBS 17:35 → 4W 17:35 → 2N 07-13 11:59
PROVIDERS: Nurse Practitioner; Nurse Practitioner Family; ADMIT Hospitalist; ATTEND Hospitalist
PROC: 5A1D70Z Performance of Urinary Filtration, Intermittent, Less than 6 Hours Per Day (ICD-10-PCS; principal; 2021-07-12)
PROC: B4181ZZ Fluoroscopy of Bilateral Renal Arteries using Low Osmolar Contrast (ICD-10-PCS; 2021-07-13)
PROC: 047S3ZZ Dilation of Left Posterior Tibial Artery, Percutaneous Approach (ICD-10-PCS; 2021-07-13)
PROC: B41D1ZZ Fluoroscopy of Aorta and Bilateral Lower Extremity Arteries using Low Osmolar Contrast (ICD-10-PCS; 2021-07-13)
DX: E11.52 Type 2 diabetes mellitus with diabetic peripheral angiopathy with gangrene (principal); N18.6 End stage renal disease; I96 Gangrene, not elsewhere classified; E44.0 Moderate protein-calorie malnutrition; L03.116 Cellulitis of left lower limb; M31.9 Necrotizing vasculopathy, unspecified; I69.354 Hemiplegia and hemiparesis following cerebral infarction affecting left non-dominant side; I13.2 Hypertensive heart and chronic kidney disease with heart failure and with stage 5 chronic kidney disease, or end stage renal disease; L97.529 Non-pressure chronic ulcer of other part of left foot with unspecified severity; I50.9 Heart failure, unspecified; E11.621 Type 2 diabetes mellitus with foot ulcer; M10.9 Gout, unspecified; E78.5 Hyperlipidemia, unspecified; E11.42 Type 2 diabetes mellitus with diabetic polyneuropathy; I48.91 Unspecified atrial fibrillation; E11.22 Type 2 diabetes mellitus with diabetic chronic kidney disease; I77.1 Stricture of artery; Z20.822 Contact with and (suspected) exposure to COVID-19; G89.29 Other chronic pain; R53.81 Other malaise; Z89.421 Acquired absence of other right toe(s); Z68.32 Body mass index [BMI] 32.0-32.9, adult; Z79.899 Other long term (current) drug therapy
CPT/HCPCS: 10040; 10045; 10081; 32100

== ENCOUNTER → 2021-08-01 | Outpatient (CLI) | payer OTHER ==
[~2021-08-01] MED LIST changes: +AUGMENTIN 500-1 EACH PO; +NEURONTIN 300M300 M2 PO; +PROTONIX 20 MG20 M1 PO
== END ==
LOC: SJCVCIMAG 07-25 07:03
PROVIDERS: ATTEND Nuclear Medicine Nuclear Cardiology
DX: I65.23 Occlusion and stenosis of bilateral carotid arteries (principal); I77.1 Stricture of artery; I73.9 Peripheral vascular disease, unspecified

== ENCOUNTER 2021-08-19 09:42 | Inpatient (IN) | payer OTHER ==
[~2021-08-19] VITALS: Ht 172.7 cm; Wt 97.5 kg
--- NOTE | ~2021-08-19 | O ---
[facility] [place] [address] OPERATIVE REPORT Name: HERRERASINDY B Room #: 170-19 ADM IN M.R.#: [id number] Admission: 08/19/21 Attend Phys: Kinza Rucker Discharge: Date of : 59 Report #: [id number] THIS REPORT FOR: cc: tSan Ingram Brady DO Rizzi, Raymond M. DPM ~ DATE OF SERVICE: 08/21/2021 PREOPERATIVE DIAGNOSIS: Diabetic foot ulcer with gangrene, left third digit. POSTOPERATIVE DIAGNOSIS: Diabetic foot ulcer with gangrene, left third digit. PROCEDURE: Left partial third ray resection. ANESTHESIA: MAC with 12 mL of 0.5% Marcaine. TOURNIQUET: None. DESCRIPTION OF PROCEDURE: The patient was transferred to the operating room and placed on the operative table in supine position. IV sedation, local was given. The left lower extremity was prepped and draped in the usual sterile manner. Attention was directed to the left foot where a racquet-type incision was made. Incision was deepened down to bone and disarticulated the third digit off the third metatarsal head. I sent deep tissue from the third digit for aerobic, anaerobic and fungal. Washed it out carefully and then dissected free the third metatarsal about 50%. I took off the distal part of the third metatarsal to make sure no infection within the third metatarsal. Any questionable tissue was removed. Then, I closed the wound using 2-0 nylon in a simple suture technique. There was some bleeding and I was able to control with compression suture and a Bovie. It should be noted I washed it out again with normal saline and bacitracin mix. I dressed with Xeroform, fluffs, Kerlix and Elvis bandage. The patient tolerated the procedure well and left the operating room in stable [facility] [address] [place] [address] OPERATIVE REPORT Name: SINDY HERRERA Room #: 170-19 [facility] IN [facility]#: [id number] Admission: 08/19/21 Attend Phys: Kinza Rucker Discharge: Date of : 59 Report #: [id number] condition with vital signs stable and vascular status intact. It should be noted there was some bleeding present, looks like adequate bleeding. No tunneling of infection proximally. By: 55 39 Cooper Diamond DPM /nt
--- NOTE | ~2021-08-19 | H ---
[facility] [place] [address] HISTORY AND PHYSICAL Name: SHARONSINDY Dueñas Room #: 440-P [facility] IN M.R.#: [id number] Admission: 08/19/21 Attend Phys: Kinza Cunha Alka Discharge: 08/24/21 Date of : 59 Report #: [id number] THIS REPORT FOR: cc: Stan Ingram Brady DO Rizzi, Raymond M. DPM ~ DATE OF SERVICE: 08/20/2021 INTRODUCTION: This is a 66-year-old male who is entering [facility] because of a diabetic foot ulcer, left third digit, which is gangrenous. HISTORY OF PRESENT ILLNESS: This is a 66-year-old male who was seen here in late June for a diabetic foot ulcer, left third digit, which was dry gangrene. He has been letting it auto amputate since then. However, he has noticed some smelling and some drainage coming from it, so he went to the ER. PAST MEDICAL HISTORY: Significant for diabetes, anemia, chronic renal insufficiencies, chronic kidney disease. He actually has end-stage renal disease, on dialysis; hyperlipidemia; gout; CHF; previous CVA with left hemiparesis. MEDICATIONS: Listed in the chart. No changes in medications. He will be started on vancomycin and Zosyn. LABORATORY DATA: Labs still pending and no access still. Vascular flow noted from the previous examination when he was admitted. Dr. Hadley evaluated. The left third digit today is necrotic looking with bone exposed and some drainage and odor present at the MPJ area. ASSESSMENT: Diabetic foot ulcer and gangrenous with odor and infection. PLAN: Possibly, a third digit amputation tomorrow or Saturday. We will get ____ on board, Dr. Barrios, to see how he feels about it and also Infectious Disease. The patient is willing to go ahead with surgery. We will see how we got to proceed. By: 1227 [id number] Cooper Diamond, LONNIE /nt
[2021-08-19 10:19] VITALS: BP 126/37
--- NOTE | 2021-08-19 12:41 | NUR ---
vascular access consulted for IV start. Right forearm 20g 1.75" ultrasound guided IV placed. Flushed and draws well. Assisted with drawing labs and blood cultures. Labs and cultures given to the bedside RN. Patient tolerated well.
[2021-08-19 13:21] LABS: CALCIUM 8.4 mg/dL (8.5-10.1); CREATININE 6.2 mg/dL (0.7-1.3); TOTAL BILIRUBIN 0.5 mg/dL (0.2-1.0); TOTAL PROTEIN 7.9 g/dL (6.4-8.2)
[2021-08-19 20:00] VITALS: BP 124/68
[2021-08-20 06:12] LABS: ABSOLUTE NEUTROPHILS 5.4 thou/uL (1.4-8.2); BASOPHILS 0.6 % (0.0-2.0); EOSINOPHILS 5.2 % (0.0-3.0); HEMATOCRIT 29.5 % (42.0-52.0); HEMOGLOBIN 9.4 gm/dL (14.0-18.0); LYMPHOCYTES 17.7 % (24.0-44.0); MCH 29.5 pg (26.0-34.0); MCHC 31.7 g/dL (28.0-37.0); MCV 92.8 fL (80.0-100.0); MONOCYTES 10.7 % (1.0-8.0); PLATELET COUNT 245 thou/uL (150-400); POLYS 65.8 % (36.0-66.0); RBC 3.18 mil/uL (4.50-6.00); RDW 17.7 % (10.5-14.5); WBC 8.2 thou/uL (4.0-11.0)
[2021-08-20 10:04] VITALS: BP 145/75
[2021-08-20 21:45] VITALS: BP 127/57
--- NOTE | 2021-08-21 05:37 | NUR ---
PT SLEPT MOST OF THE NIGHT. RIGHT FOOT DRESSING INTACT. NO NEW COMPLAINTS NOTED. CALLS OUT APPROPRIATELY FOR NEEDS.
[2021-08-21 08:00] VITALS: BP 127/57; BP 131/58
--- NOTE | 2021-08-21 10:28 | NUR ---
0900: PT'S SPOUSE AT BEDSIDE. RN UPDATED HER ON POSSBILE PLAN FOR SURGERY TODAY. RN SPOKE WITH PRE-OP AND PT IS NOT ON SCHEDULE TODAY. PT'S SPOUSE REPORTS SPEAKING DIRECTLY WITH DR. PETERS. DR. DANIELS IN CONTACT WITH HIM WELL. WILL UPDATE PT AND FAMILY WHEN ANY NEW INFORMATION ARISES.
--- NOTE | 2021-08-21 13:49 | NUR ---
RN SPOKE WITH DR. PETERS VIA TELEPHONE. PER DR. PETERS, AWAITING DR. TURCIOS TO EVAL PT BEFORE CONFIRMING SX OR NOT. DR. TURCIOS PAGED AND NOTIFIED OF CONSULT.
--- NOTE | 2021-08-21 14:55 | NUR ---
RN NOTIFIED DR. PETERS THAT PT REPORTS DR. TURCIOS CAME BY FOR EVAL. DR. PETERS TO FOLLOW UP WITH DR. TURCIOS.
--- NOTE | 2021-08-21 15:32 | NUR ---
RN RECEIVED CALL FROM DR. PETERS, PLANS FOR PT TO GO TO OR TODAY AROUND 1700. PT AND SPOUSE, AT BEDSIDE UPDATED.
[2021-08-21 16:30] VITALS: BP 147/78
--- NOTE | 2021-08-21 18:21 | NUR ---
1800: PT OFF UNIT TO OR WITH PRE/POST STAFF MEMBERS. PT'S SPOUSE AWARE OF PLAN. RN ENCOURAGED PTS SPOUSE TO TAKE HIS BELONGINGS TO PREVENT THEM FROM GETTING LOST IN TRANSPORT.
[2021-08-21 22:15] VITALS: BP 145/65
[2021-08-21 22:30] VITALS: BP 139/62
[2021-08-21 23:00] VITALS: BP 138/60
[2021-08-21 23:20] VITALS: BP 126/61
[2021-08-22 03:00] VITALS: BP 136/71
[2021-08-22 04:55] VITALS: BP 110/46
[2021-08-22 08:45] VITALS: BP 133/56
--- NOTE | 2021-08-22 09:30 | NUR ---
PT ADMITTED RELATED TO GANGRENE. CM REVIEWED CHART AND SPOKE WITH CARE TEAM. PT IS FAMILIAR TO CM FROM PREVIOUS ADMISSION PT HAD DISCHARGED HOME 07/[address] [facility]. LAST ADMISSION TO HAD BEEN A&O X4. PT RESIDES IN A HOUSE WITH HIS WITH 10 STEPS TO ENTER AND ALL NEEDS ON ONE LEVEL INSIDE. 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 PT HAD BEEN INDPENDENET WITH [facility] DOVETAIL MACHINE OPERATOR. PT GOES TO OP HD AT [facility] MWF 6:15-9. PT'S SPOUSE TRANSPORTS. PT HAD BEEN ON SERVICE WITH [facility] DOVETAIL MACHINE OPERATOR. PT HAD INDICATED HE PLANED TO RETURN HOME ONCE MEDICALLY STABLE AND WISHED TO RESUME SERVICES WITH [facility]. REGARDING DC PLANNING.
[2021-08-22 16:25] VITALS: BP 135/76
[2021-08-22 19:28] VITALS: BP 164/70
--- NOTE | 2021-08-22 19:45 | NUR ---
gave report to 4S RN, pt is ready to be transfered to 440. HD RN reported taking 1.5 L off.
[2021-08-22 20:16] VITALS: BP 131/68
[2021-08-23 03:16] LABS: HEMATOCRIT 26.4 % (42.0-52.0); HEMOGLOBIN 8.7 gm/dL (14.0-18.0); MCH 30.4 pg (26.0-34.0); MCV 92.1 fL (80.0-100.0); RBC 2.86 mil/uL (4.50-6.00); RDW 17.9 % (10.5-14.5)
[2021-08-23 04:32] LABS: CALCIUM 7.7 mg/dL (8.5-10.1); CREATININE 7.5 mg/dL (0.7-1.3); MAGNESIUM 1.9 mg/dL (1.8-2.4); POTASSIUM 5.1 mmol/L (3.5-5.1)
[2021-08-23 05:34] VITALS: BP 111/45
--- NOTE | 2021-08-23 06:37 | NUR ---
ADMITTED PATIENT TO FLOOR AT 1999. PT ASSESSED TO BE AOX4 66M PRESENTING POST TOE AMPUTATION SECONDARY TO GANGRENE. ALL ADMIT CHECKLIST COMPLETED, CHART MADE. PT CAN AMBULATES X1 SBA WITH A WALKER, STABLE ON RA, PULSES 2/1, NO PAIN VERBALIZED, FISTULA DRESSING AND FOOT DRESSING INTACT. RESTED THROUGHOUT THE NIGHT WITH NO COMPLAINTS, VSS.
--- NOTE | 2021-08-23 07:47 | HC ---
[facility] [place] [address] CONSULTATION Name: SINDY HERRERA Spenser Room #: 440-P [facility] IN M.R.#: [id number] Admission: 08/19/21 Attend Phys: Kinza Rucker Discharge: Date of : 59 Report #: [id number] THIS REPORT FOR: cc: Stan Ingram Brady DO Barry, Joseph W. MD ~ DATE OF SERVICE: 08/22/2021 INFECTIOUS DISEASE CONSULTATION ATTENDING PHYSICIAN: Dr. Rucker. REASON FOR EVALUATION: Deep seated infection involving the left third toe post partial ray amputation. HISTORY OF PRESENT ILLNESS: Chart reviewed. The patient examined. This is a 66-year-old gentleman known to myself, who I had seen back in latter part of 06/2021. He has diabetes mellitus with severe sequelae including widespread vasculopathy, end-stage renal disease, on dialysis, previous amputations. At that point, he was noted to have a chronic ulcer with probable osteomyelitis involving the left second toe. He underwent amputation at that point. He presented with gangrenous changes involving the third toe. Evaluation noted. X-ray evidence of dislocation. Mildly elevated inflammatory markers. He underwent partial left third ray amputation resection. He was started on combination of broad-spectrum therapy with vancomycin and Zosyn. Cultures are in progress. He notes he has not had significant pain, although this is not notable because of pretty severe peripheral neuropathy. ALLERGIES: None known. MEDICATIONS: Include clopidogrel, gabapentin, diltiazem, enoxaparin, carvedilol, p.r.n. analgesics, antiemetics, Zosyn and vancomycin. PAST MEDICAL HISTORY: As described above diabetes mellitus with severe sequelae; widespread vasculopathy; peripheral vascular disease; previous stroke with left-sided plegia; history of gout; end-stage renal disease, on dialysis; hypertension; hyperlipidemia and AFib. SOCIAL HISTORY: Nonsmoker, no ethanol, no illicit drug use. FAMILY HISTORY: Noncontributory. REVIEW OF SYSTEMS: Otherwise, unremarkable. PHYSICAL EXAMINATION: GENERAL: He is chronically ill appearing. He is at least mildly [facility] [address] [place] [address] CONSULTATION Name: SHARONSINDY Spenser Room #: 440-P [facility] IN ..#: [id number] Admission: 08/19/21 Attend Phys: Kinza Rucker Discharge: Date of : 59 Report #: [id number] encephalopathic, depressed affect. He is oriented at least x 2. VITAL SIGNS: Temperature 98.9, pulse 70, respirations 18, blood pressure 133/56. SKIN: Warm, dry. HEENT: Normocephalic. Extraocular muscles intact. NECK: Supple. LUNGS: Diminished breath sounds. HEART: Irregular, has a soft systolic murmur. ABDOMEN: Obese, distended, firm, nontender. EXTREMITIES: Left lower extremity has a surgical dressing in place covering the distal aspect. GENITOURINARY AND RECTAL: Deferred. LABORATORY DATA: Operative culture in progress, no white cells, no organisms seen. Reviewed operative reports. Blood cultures sterile thus far. Coronavirus testing was negative. Sed rate of 70. CBC: White count 8.2, H and H 9.4 and 29.5, platelets of 245. Procalcitonin 0.46. CRP of 39.1. Electrolytes: Sodium 135, potassium 4.0, chloride 94, bicarbonate is 31, anion gap of 10, BUN and creatinine 30 and 6.2, glucose of 189. Liver functions otherwise unremarkable. Albumin 3.0, total protein 7.9. ASSESSMENT AND PLAN: Deep seated infection involving the left third toe post-ray amputation diabetes mellitus with severe vasculopathy and peripheral neuropathy. We will continue broad-spectrum combination therapy. Await culture results as able. Continue wound care as prescribed. Certainly at risk for additional complications. We will add incentive spirometry, optimize his nutritional status as able. Monitor expectantly. Continue supportive care. <ELECTRONICALLY SIGNED> By: Saman Martin MD 08/23/21 0747 1407 35 Saman Martin MD /nt
[2021-08-23 09:02] VITALS: BP 141/68
--- NOTE | 2021-08-23 10:36 | NUR ---
ASSUMED CARE OF PT AT 0700 THIS MORNING. PT WAS BROUGHT UP LAST NIGHT AFTER 3 GANGRENOUS TOES WERE AMPUTATED. PT IS A/OX4 AND NO COMPLAINTS OF PAIN. DRESSING ON LT FOOT C/D/I. ASSESSMENTS NOTED IN CHART AND OTHERWISE UNREMARKABLE. FALL PRECAUTIONS ARE IN PLACE. CALL LIGHT AND OTHER NEEDS ARE IN REACH. DIALYSIS SCHEDULED FOR THIS MORNING. MEDS AND TX GIVEN NEEDED AND SCHEDULED. MEDS HELD THIS MORNING DUE TO DIALYSIS. WILL MONITOR AND NOTE ANY CHANGES.
[2021-08-23 11:03] VITALS: BP 141/68
--- NOTE | 2021-08-23 14:53 | HC ---
[facility] [place] [address] CONSULTATION Name: SHARONSINDY Spenser Room #: 440-P [facility] IN M.R.#: [id number] Admission: 08/19/21 Attend Phys: Kinza Rucker Discharge: Date of : 59 Report #: [id number] THIS REPORT FOR: cc: Stan Ingram, Stan Garcia,Chuy Zambrano MD ~ DATE OF SERVICE: 08/22/2021 WOUND CARE CONSULTATION PERSONAL PHYSICIAN: Stan Ingram. CHIEF COMPLAINT: Left third toe gangrene. HISTORY OF PRESENT ILLNESS: This is a 66-year-old black male with a history of peripheral arterial disease, who has had previous amputation of his toes, who presented to the Emergency Department with gangrene to his left third toe, which has been present for several days. The patient states it has gotten progressively worse. The patient has been seen by a Golf Ball Cover Treater in the past and was actually hospitalized approximately a month ago with IV antibiotics. PAST MEDICAL HISTORY: Significant for CVA with some residual left-sided weakness, previous diabetic foot wounds with previous amputations, end-stage renal disease, on hemodialysis, type 2 diabetes, hypertension, hyperlipidemia, peripheral neuropathy and atrial fibrillation. CURRENT MEDICATIONS: Multiple, I reviewed the patient's medication list. DRUG ALLERGIES: None. SOCIAL HISTORY: The patient denies tobacco or alcohol use. FAMILY HISTORY: Not pertinent to current medical condition. REVIEW OF SYSTEMS: CONSTITUTIONAL: The patient denies fevers or chills. NEUROLOGIC: The patient denies isolated numbness or tingling, but does have chronic numbness in his feet with neuropathy. EYES: No complaints. EARS, NOSE AND THROAT: No complaints. CARDIAC: The patient denies chest pain, palpitations, peripheral edema. RESPIRATORY: The patient denies shortness of breath, cough, wheezes. GASTROINTESTINAL: The patient denies nausea, vomiting, abdominal pain. GENITOURINARY: The patient denies urgency or frequency. MUSCULOSKELETAL: No complaints. SKIN: There is a gangrenous left third toe. [address] [address] CONSULTATION Name: SINDY HERRERA Room #: 440-[facility] IN .R.#: [id number] Admission: 08/19/21 Attend Phys: Kinza Rucker Discharge: Date of : 59 Report #: [id number] PHYSICAL EXAMINATION: VITAL SIGNS: Temperature 37.2, pulse 70, respirations 18, BP 133/56. GENERAL: This is alert and oriented x3, pleasant black male who is in mild distress secondary to symptoms. HEENT: Normocephalic, atraumatic. Mucous membranes are somewhat dry. Pupils are round. Sclerae white. NECK: Without JVD. LUNGS: Clear. HEART: Regular. ABDOMEN: Soft, nontender. EXTREMITIES: The patient moves all extremities without difficulty. The patient has 1+ dorsalis pedis and posterior tibial pulses. Evaluation of left foot reveals 1+ edema. There is a gangrenous left third toe, which is foul smelling and tender to palpation. Rest of the toes are intact. Right foot is intact. Bilateral heels are intact. NEUROLOGIC: Cranial nerves II-XII grossly intact. Motor and sensory are grossly intact. LABORATORY DATA: White count 8.2, hemoglobin 9.4. Sed rate 70, BUN 30, creatinine 6.2, albumin 3.0. IMPRESSION: 1. Gangrene of the left third toe. 2. End-stage renal disease, on hemodialysis. 3. Diabetes mellitus type 2 with peripheral neuropathy. 4. Generalized debility. 5. Mild protein calorie malnutrition, albumin 3.0. PLAN: Dr. Diamond is planning on taking the patient to the operating room tonight for amputation. IV antibiotics have been ordered as well as Infectious Disease consult. Nephrology seeing the patient for hemodialysis. We will try to maximize the patient's oral protein supplementation as per his renal dialysis. We will continue to follow the patient. Appreciate ability to consult. <ELECTRONICALLY SIGNED> By: Chuy Barrios MD 08/23/21 1453 111 51 Chuy Barrios MD /nt
[2021-08-23 16:00] VITALS: BP 144/43
[2021-08-23 22:53] VITALS: BP 126/62
--- NOTE | 2021-08-24 05:42 | NUR ---
ASSUMED CARE OF PT AT 1900. PT ASSSESSED TO BE AOX4 66M PRESENTING POST TOE AMPUTATION SECONDARY TO GANGRENE. PT WAS ABLE TO REST QUIETLY THROUGHOUT THE NIGHT WITH NO COMPLAINTS, VSS. AT START OF SHIFT IV TAPE FELL OFF, ATTEMPTED TO OBTAIN NEW ACCESS BUT CANNOT USE L ARM AND PT IS EXTREMELY HARD STICK. NEEDED IV TEAM LAST TIME WILL CONSULT THEM IN AM, MISSED ONE DOSE OF ZOSYN. PT STABLE ON RA, SR ON TELE, ORAL MEDS GIVEN FOR PAIN. WILL CONT TO MONITOR.
[2021-08-24 07:04] LABS: HEMATOCRIT 25.7 % (42.0-52.0); HEMOGLOBIN 8.4 gm/dL (14.0-18.0); MCH 30.5 pg (26.0-34.0); MCHC 32.7 g/dL (28.0-37.0); MCV 93.3 fL (80.0-100.0); RBC 2.75 mil/uL (4.50-6.00); RDW 18.2 % (10.5-14.5); WBC 6.7 thou/uL (4.0-11.0)
[2021-08-24 07:22] LABS: CALCIUM 8.2 mg/dL (8.5-10.1); MAGNESIUM 2.1 mg/dL (1.8-2.4); POTASSIUM 4.2 mmol/L (3.5-5.1)
[2021-08-24 07:36] VITALS: BP 133/53
[2021-08-24 07:45] LABS: CREATININE 6.3 mg/dL (0.7-1.3)
--- NOTE | 2021-08-24 09:35 | NUR ---
WOUND CARE F/U; THE LEFT FOOT TOE AMPUTATION SITE WAS ASSESSED TODAY WITH NILS VILLA AND YARELIS VILLA. A VERBAL ORDER WAS GIVEN BY NILS VILLA T APPLY AQUACEL AG/KERLIX/SUKI WRAP, THE AREA WAS CLEANSED WITH NORMAL SALINE AND THE DRESSING WAS APPIED. DISCUSSED WITH NAEL
[2021-08-24] MEDS ORDERED: CIPRO250 M2 PO (12:27)
[2021-08-24] MEDS ORDERED: HYDROCODON-ACE1 EAC7 PO (12:28)
--- NOTE | 2021-08-24 12:31 | NUR ---
RE-ASUMED CARE OF PT THIS MORNING AT 0700. PT HAD NO CHANGES SINCE REPORT LAST NIGHT. PT IS A/OX4 AND HAS NO COMPLAINTS. PT IS BEING DISCHARGED LATER THIS AFTERNOON. ASSESSMENTS NOTED IN CHART AND OTHERWISE UNREMARKABLE. NO FALL PRECAUTIONS ARE NEEDED TODAY AND PT IS SB ASST WHEN WALKING. CALL LIGHT AND OTHER NEEDS ARE IN REACH. MEDS AND TX GIVEN NEEDED AND SCHEDULED. WOUND NURSE CHANGED DRESSING ON FLT FOOT. WILL MONITOR AND NOTE ANY CHANGES.
--- NOTE | 2021-08-24 12:32 | NUR ---
Case discussed in team rounds. Pt lost IV and will likely need midline placed as he continues on iv atb. PT/OT is seeing him and [facility] is following along and can accept at dc.
[2021-08-24 12:36] VITALS: BP 133/53
--- NOTE | 2021-08-24 12:43 | NUR ---
Pt dcing home today with hh per [facility]. Orders faxed to intake and confirmed with their liason. DC summary and instructions also faxed to [facility] and they were notified of pt dc and need for iv vanco after HD tx. They will call Dr. Martin for duration and clarification of the orders. No other needs noted.
[2021-08-24 13:03] VITALS: BP 133/53
--- NOTE | 2021-08-25 19:07 | PATH ---
[facility] [address] [place] [address] PATHOLOGY RPT PROCEDURE Name: SHARONSINDY B Room #: 440-P [facility] IN M.R.#: [id number] Admission: 08/19/21 Date of : 59 Discharge: 08/24/21 Report #: [id number] Path Case #: [id number] [facility] Accession Number: [id number] . 01 Material submitted: . foot - 3RD PARTIAL RAY RESECTION LEFT FOOT. Modifiers: left . 01 Clinical history: . AMPUTATION OF TOES DIABETIC FOOT ULCER WITH GANGRENE . 02 Diagnosis: Skin, soft tissue and bone "third partial ray resection left foot": - Ulceration of the skin, with underlying acute and chronic inflammation and associated osteomyelitis. - Negative for malignancy. (SALVATORE:bharat; 08/25/2021) MBSruthi 08/25/2021 1757 Local . 02 Electronically signed: . Shyann Beck MD, Pathologist NPI- [id number] . 01 Gross description: . The specimen is received in formalin, labeled "Sindy Cerrato, third partial ray resection left foot". Received is an amputated digit measuring 5.2 x 3.2 x 2.5 cm in greatest dimensions. The bone margin is smooth and concave in appearance, consistent with disarticulation. The bone and soft tissue margins are inked black. The nail is present displaying a bell-dhillon appearance. The epidermal surface is bell-brown to brown-black and necrotic in appearance. A full-thickness longitudinal cross-section is submitted from proximal to distal aspects in cassettes A1 and A2, following decalcification. . Also received within the specimen container is an additional segment of bone displaying one smooth, convex disarticulated margin, and one jagged margin, measuring 1.8 x 1.8 x 1.3 cm. The jagged margin is inked black. A full thickness cross-section is submitted in cassette A3, following decalcification. (CAA; 08/23/2021) QAC/QAC 08/23/2021 0920 Local . 02 Pathologist provided ICD-10: M86.171, L97.519, L08.9 . 02 CPT . [id number], [id number] [place] [address] PATHOLOGY RPT PROCEDURE Name: SINDY CERRATO Room #: 440-P [facility] IN M.R.#: [id number] Admission: 08/19/21 Date of : 59 Discharge: 08/24/21 Report #: [id number] Path Case #: [id number] Specimen Comment: A courtesy copy of this report has been sent to [phone] Specimen Comment: [phone], Specimen Comment: Report sent to , DR TORRES / DR DANIELS Performed at: 01 [facility] [address] [id number] MD Michael White MD Phone: [phone] Performed at: 02 [facility] [address] [id number] MD Lam Mcknight MD Phone: [phone]
== END 2021-08-24 13:15 | disposition home health service (06) | DRG 239 ==
LOC: ER 09:42 → EROBS 13:39 → 4S 13:39 → EROBS 15:48 → TBACV 08-21 18:59 → EROBS 08-21 22:25 → 4S 08-22 20:06
PROVIDERS: Emergency Medicine; Internal Medicine; ADMIT Hospitalist; ATTEND Hospitalist
PROC: 0Y6N0ZC Detachment at Left Foot, Partial 3rd Ray, Open Approach (ICD-10-PCS; principal; 2021-08-21)
PROC: 5A1D70Z Performance of Urinary Filtration, Intermittent, Less than 6 Hours Per Day (ICD-10-PCS; 2021-08-22)
DX: E11.52 Type 2 diabetes mellitus with diabetic peripheral angiopathy with gangrene (principal); N18.6 End stage renal disease; E44.1 Mild protein-calorie malnutrition; I96 Gangrene, not elsewhere classified; M31.9 Necrotizing vasculopathy, unspecified; I69.354 Hemiplegia and hemiparesis following cerebral infarction affecting left non-dominant side; I12.0 Hypertensive chronic kidney disease with stage 5 chronic kidney disease or end stage renal disease; E11.621 Type 2 diabetes mellitus with foot ulcer; M10.9 Gout, unspecified; E11.22 Type 2 diabetes mellitus with diabetic chronic kidney disease; E78.5 Hyperlipidemia, unspecified; I48.91 Unspecified atrial fibrillation; E11.42 Type 2 diabetes mellitus with diabetic polyneuropathy; R53.81 Other malaise; Z20.822 Contact with and (suspected) exposure to COVID-19; D63.8 Anemia in other chronic diseases classified elsewhere; Z68.32 Body mass index [BMI] 32.0-32.9, adult; Z99.2 Dependence on renal dialysis; Z83.3 Family history of diabetes mellitus; Z82.49 Family history of ischemic heart disease and other diseases of the circulatory system
CPT/HCPCS: 10100; 32100; 50010; 50101; 50386; 56525; 56528; 57091; 62110; 62850; 70005

== ENCOUNTER → 2021-09-19 | Outpatient (CLI) | payer OTHER ==
[~2021-09-19] MED LIST changes: +CIPRO250 M2 PO
== END ==
LOC: HYPER 12:32
PROVIDERS: ATTEND Emergency Medicine
DX: E11.621 Type 2 diabetes mellitus with foot ulcer (principal); L97.522 Non-pressure chronic ulcer of other part of left foot with fat layer exposed; E11.42 Type 2 diabetes mellitus with diabetic polyneuropathy; E11.69 Type 2 diabetes mellitus with other specified complication; M86.9 Osteomyelitis, unspecified; E11.22 Type 2 diabetes mellitus with diabetic chronic kidney disease; I13.0 Hypertensive heart and chronic kidney disease with heart failure and stage 1 through stage 4 chronic kidney disease, or unspecified chronic kidney disease; N18.9 Chronic kidney disease, unspecified; I50.9 Heart failure, unspecified; I48.91 Unspecified atrial fibrillation; M10.9 Gout, unspecified; E66.9 Obesity, unspecified; E78.5 Hyperlipidemia, unspecified; G89.4 Chronic pain syndrome; R53.1 Weakness; K21.9 Gastro-esophageal reflux disease without esophagitis; Z99.2 Dependence on renal dialysis; Z79.01 Long term (current) use of anticoagulants; Z79.4 Long term (current) use of insulin; Z86.73 Personal history of transient ischemic attack (TIA), and cerebral infarction without residual deficits; Z68.31 Body mass index [BMI] 31.0-31.9, adult

== ENCOUNTER → 2021-09-27 | Outpatient (CLI) | payer OTHER | LOC: HYPER 07:42 | PROVIDERS: ATTEND Emergency Medicine | DX: E11.621 Type 2 diabetes mellitus with foot ulcer (principal); L97.522 Non-pressure chronic ulcer of other part of left foot with fat layer exposed; E11.42 Type 2 diabetes mellitus with diabetic polyneuropathy; E11.69 Type 2 diabetes mellitus with other specified complication; M86.9 Osteomyelitis, unspecified; E11.22 Type 2 diabetes mellitus with diabetic chronic kidney disease; I13.0 Hypertensive heart and chronic kidney disease with heart failure and stage 1 through stage 4 chronic kidney disease, or unspecified chronic kidney disease; N18.9 Chronic kidney disease, unspecified; I50.9 Heart failure, unspecified; I48.91 Unspecified atrial fibrillation; M10.9 Gout, unspecified; E66.9 Obesity, unspecified; E78.5 Hyperlipidemia, unspecified; G89.4 Chronic pain syndrome; R53.1 Weakness; K21.9 Gastro-esophageal reflux disease without esophagitis; Z99.2 Dependence on renal dialysis; Z79.01 Long term (current) use of anticoagulants; Z79.4 Long term (current) use of insulin; Z86.73 Personal history of transient ischemic attack (TIA), and cerebral infarction without residual deficits; Z68.31 Body mass index [BMI] 31.0-31.9, adult ==